=== PATIENT | female | born 1990 | race Two or more races ===

== ENCOUNTER 2020-05-02 12:45 | Outpatient (REF) | payer MEDICAID, SELFPAY | END 2020-05-02 12:46 | disposition home or self-care (01) | LOC: HO.LAB 12:45 | PROVIDERS: PCP Internal Medicine; Visit Provider Internal Medicine | DX: Z20.822 Contact with and (suspected) exposure to COVID-19 (principal) | CPT/HCPCS: 36415; C9803; U0003 ==

== ENCOUNTER 2020-07-25 08:09 | Outpatient (REF) | payer OTHER, SELFPAY ==
[2020-07-25 09:02] LABS: COVID-19 Test Negative (Negative); IDNOW Serial# 55D5AD1C
== END 2020-07-25 08:10 | disposition home or self-care (01) ==
LOC: HO.EMPCOV 08:09
PROVIDERS: Visit Provider Internal Medicine
DX: Z20.822 Contact with and (suspected) exposure to COVID-19 (principal)
CPT/HCPCS: 36415; 87635; C9803

== ENCOUNTER 2020-08-01 08:25 | Outpatient (REF) | payer OTHER, SELFPAY ==
[2020-08-01 09:17] LABS: COVID-19 Test Negative (Negative); IDNOW Serial# 55D5AD1C
== END 2020-08-01 08:26 | disposition home or self-care (01) ==
LOC: HO.EMPCOV 08:25
PROVIDERS: Visit Provider Internal Medicine
DX: Z20.822 Contact with and (suspected) exposure to COVID-19 (principal)
CPT/HCPCS: 36415; 87635; C9803

== ENCOUNTER 2021-06-28 08:54 | Outpatient (REF) | payer OTHER, SELFPAY ==
--- NOTE | ~2021-06-28 | FL_ITS ---
PROCEDURE: FL BARIUM SWALLOW CLINICAL INFORMATION: Dysphagia. COMPARISON: None TECHNIQUE: Barium swallow examination is performed using fluoroscopic evaluation in addition to multiple fluoroscopic spot views. The patient is imaged both upright and prone and using both thick and thin sulfate along with effervescent granules. Fluoroscopy time: 1.7 minutes DAP: 5.365 Gycm2 Images: 38 FINDINGS: Following oral administration of thick barium and barium-coated turkey in upright view there is normal propagation of bolus from the oral cavity through the pharynx, esophagus into stomach without any evidence of obstruction, narrowing or stricture. On placing patient prone lying and oral administration of thin barium there is normal propagation of bolus from the oral cavity through the pharynx into the esophagus and stomach. There is good distention of esophagus without any intrinsic obstructive lesion or extrinsic compression. The gastroesophageal junction is widely patent. FL/FL barium swallow IMPRESSION: Unremarkable barium swallow exam.
== END 2021-06-28 08:55 | disposition home or self-care (01) ==
LOC: HO.XRAY 08:54
PROVIDERS: PCP Nurse Practitioner Family; Visit Provider Nurse Practitioner Family
DX: R19.8 Other specified symptoms and signs involving the digestive system and abdomen (principal)
CPT/HCPCS: 74220

== ENCOUNTER 2021-07-04 04:57 | Emergency (ER) | payer OTHER, SELFPAY ==
[2021-07-04 05:21] VITALS: BP 111/81; PULSE 113; RESP 12; TEMP 36.6; O2SAT 96; BMI 26.3
[2021-07-04 05:55] VITALS: BP 118/70; PULSE 108; RESP 18; TEMP 37.2; O2SAT 96
[2021-07-04 06:14] LABS: Basophils Percent Auto 0.1 % (0-2); Eosinophils Percent Auto 0.6 % (0-4); Hematocrit 34.8 % (37.0-47.0); Hemoglobin 12.2 g/dl (12.0-16.0); Imm Gran Abs Auto 0.03 X10*3/uL (0.00-0.03); Imm Gran Pct Auto 0.4 % (0.0-0.4); Lymphocytes Absolute Auto 0.4 X10*3/uL (1.2-4.9); Lymphocytes Percent Auto 5.2 % (20-40); MANUAL DIFF FLAG NO; Mean Corpuscular HGB Conc 35.1 g/dl (31.0-35.0); Mean Corpuscular Hemoglobin 28.6 pg (27.0-33.0); Mean Corpuscular Volume 81.5 fL (80.0-98.0); Mean Platelet Volume 8.9 fL (9.4-12.3); Monocytes Absolute Auto 0.5 X10*3/uL (0.1-1.2); Monocytes Percent Auto 6.3 % (2-11); Neutrophils Absolute Auto 6.3 x10*3/uL (2.0-8.3); Neutrophils Percent Auto 87.4 % (45-73); Platelet Count 344 X10*3/uL (160-400); Red Blood Count 4.27 X10*6/uL (4.20-5.50); Red Cell Distribution Width 13.6 % (11.0-16.0); White Blood Count 7.2 X10*3/uL (4.8-10.8)
[2021-07-04 06:32] LABS: Alanine Aminotransferase 12 U/L (0-31); Albumin Level 4.2 g/dL (3.5-5.0); Alkaline Phosphatase 81 U/L (39-117); Anion Gap 10 (12-20); Aspartate Amino Transferase 14 U/L (5-31); Bilirubin Total 0.6 mg/dL (0.0-1.0); Blood Urea Nitrogen 8 mg/dL (9-16); Calcium 9.3 mg/dL (8.4-10.2); Carbon Dioxide 27 mmol/L (22-29); Chloride 104 mmol/L (96-108); Creatinine Clr Calc Pharmacy 77.9; Estimated Glomerular Filt Rate > 60; Glucose Random 110 mg/dL (60-115); Potassium 3.6 mmol/L (3.3-5.1); Sodium 137 mmol/L (135-145); Total Protein 7.4 g/dL (6.5-8.0)
--- NOTE | 2021-07-04 06:39 | ED.ABDPAIN ---
HPI - Abdominal Pain General Chief Complaint: Abdominal Pain Stated Complaint: stomach pain Time Seen by Provider: 07/04/21 05:31 Source: patient Mode of arrival: ambulatory Limitations: no limitations History of Present Illness HPI narrative: Since yesterday intermittent abdominal pain, no dysuria, LMP 3, denies Diarrhea Patient states she has chills, she had vomiting yesterday at work. elicited complaint: abdominal pain Pertinent past history: none Onset (ago): day(s) Pain Consistency: intermittent Location: periumbilical Severity: mild Quality: cramping Exacerbating factors: nothing Relieving factors: nothing Associated symptoms: denies other symptoms Related Data Home Medications Medication Instructions Recorded Confirmed trazodone 50 mg tablet 50 mg PO BEDTIME 05/09/21 Previous Rx's Medication Instructions Recorded hydroxyzine HCl 25 mg tablet 25 mg PO Q6-8H PRN #30 tab 05/09/21 Allergies Allergy/AdvReac Type Severity Reaction Status Date / Time No Known Allergies Allergy Verified 05/09/21 16:17 Review of Systems Constitutional: Reports no additional constitutional complaints Eyes: Reports no additional eye complaints Denies dizziness Cardiovascular: Reports no additional cardiovascular complaints Respiratory: Reports as per HPI Gastrointestinal: Reports no additional gastrointestinal complaints Genitourinary: Reports no additional female genitourinary complaints Musculoskeletal: Reports no additional musculoskeletal complaints Skin/Breast: Denies rash Reports system reviewed and no additional complaints, except as documented, Denies dizziness and Denies Sensory deficit (Neuro) Psychiatric: Denies anxiety PMFSH Past Medical History Surgical History History of tonsillectomy Family History Family History Father Hypothyroid Depression Mental health disorder Multiple sclerosis Mother Diabetes Hypothyroid Hypertension Maternal Aunt Cancer Social History Social History Housing: Apartment Alcohol intake: never Patient Tobacco Use Status: Never used Tobacco e-Cigarette/Vaping Use: Never Used Second Hand Smoke Exposure: No Advance Directives: No Advance Directives Information Provided: Yes Patient : No service: No Current occupational status: employed Current occupational exposures/hazards: No Physical Exam ED Vital Signs: Vital Signs - 24 hr 07/04/21 05:21 07/04/21 05:55 Temperature 97.9 F 98.9 F Pulse Rate 113 H 108 H Respiratory Rate 12 18 Blood Pressure 111/81 118/70 Pulse Oximetry 96 96 BMI result Body Mass Index 26.3 Const General: healthy appearing Nutritional Appearance: average body habitus Orientation/consciousness: oriented to person and patient oriented x3 Limitations: no limitations HENMT Head: Yes normal to inspection Ears: external ears normal General nose exam: Normal external nose present Mouth: Normal oral and palatal mucosa present and oropharynx normal Throat: Yes posterior oropharynx normal Eyes General: appearance normal, both eyes and all related structures Neck Neck: Yes normal visual inspection Chest Chest palpation & inspection: normal inspection of the chest Resp Auscultation: clear to auscultation bilaterally Cardio Jugular venous distension: no JVD Rate: regular rate Rhythm: regular rhythm Heart sounds: S1 normal heart sound present and S2 normal heart sound present GI Inspection: Yes normal to inspection Palpation (GI): Soft to palpation, nontender and No hepatosplenomegaly present Auscultation: normal bowel sounds General: Yes no CVA tenderness Back/Spine/Pelvis Back: no CVA tenderness Skin General skin exam: no rashes or lesions noted Neuro General: oriented to person and patient oriented x3 Cranial nerves: Yes CN's II-XII intact bilaterally Motor exam (neuro): 5/5 motor strength present throughout Sensory Exam: No Sensory deficit (Neuro) Extrem General: Yes normal to inspection Psych Appearance: grossly normal Course Reevaluation(s) Reevaluation #1: labs and urine negative, patient tolerated PO. Doesn't want zofran, will dc home Time: 08:30 MDM - Abdominal Pain Lab Data Result diagrams: 07/04/21 06:10 07/04/21 06:10 Labs: Lab Results 07/04/21 07/04/21 07/04/21 Range/Units 06:10 06:10 07:11 WBC 7.2 (4.8-10.8) X10*3/uL RBC 4.27 (4.20-5.50) X10*6/uL Hgb 12.2 (12.0-16.0) g/dl Hct 34.8 L (37.0-47.0) % MCV 81.5 (80.0-98.0) fL MCH 28.6 (27.0-33.0) pg MCHC 35.1 H (31.0-35.0) g/dl RDW 13.6 (11.0-16.0) % Plt Count 344 (160-400) X10*3/uL MPV 8.9 L (9.4-12.3) fL Immature Gran % (Auto) 0.4 (0.0-0.4) % Neut % (Auto) 87.4 H (45-73) % Lymph % (Auto) 5.2 L (20-40) % [place] % (Auto) 6.3 (2-11) % Eos % (Auto) 0.6 (0-4) % Baso % (Auto) 0.1 (0-2) % Lymph # (Auto) 0.4 L (1.2-4.9) X10*3/uL [place] # (Auto) 0.5 (0.1-1.2) X10*3/uL Eos # (Auto) 0.0 (0.0-0.4) X10*3/uL Baso # (Auto) 0.0 (0.0-0.2) X10*3/uL Abs Immat Gran (auto) 0.03 (0.00-0.03) X10*3/uL Absolute Neuts (auto) 6.3 (2.0-8.3) x10*3/uL Absolute Nucleated RBC 0.000 (0.0-0.012) X10*3/uL Nucleated RBC % (auto) 0.0 (0.0-0.2) /100WBC Sodium 137 (135-145) mmol/L Potassium 3.6 (3.3-5.1) mmol/L Chloride 104 (96-108) mmol/L Carbon Dioxide 27 (22-29) mmol/L Anion Gap 10 L (12-20) BUN 8 L (9-16) mg/dL Creatinine 0.79 (0.5-1.4) mg/dL Estim Creat Clear Calc 77.9 Estimated GFR > 60 Random Glucose 110 (60-115) mg/dL Calcium 9.3 (8.4-10.2) mg/dL Total Bilirubin 0.6 (0.0-1.0) mg/dL AST 14 (5-31) U/L ALT 12 (0-31) U/L Alkaline Phosphatase 81 (39-117) U/L Total Protein 7.4 (6.5-8.0) g/dL Albumin 4.2 (3.5-5.0) g/dL Urine Color YELLOW Urine Appearance HAZY Urine pH 6.0 (5.0-8.0) Ur Specific [place] 1.020 (1.005-1.025) Urine Protein TRACE (NEG-TRACE) MG/DL Urine Glucose (UA) NEG (NEG) MG/DL Urine Ketones 5 (NEG) MG/DL Urine Blood NEG (NEG) Urine Nitrite NEG (NEG) Ur Leukocyte Esterase 1+ H (NEG) Urine RBC 0 (0) /HPF Urine WBC 10-14 H (0-4) /HPF Ur Squamous Epith Cells 1+ /LPF Urine Bacteria 1+ /LPF Urine Mucus 2+ /LPF Urine Test (NEGATIVE) 07/04/21 Range/Units 07:11 WBC (4.8-10.8) X10*3/uL RBC (4.20-5.50) X10*6/uL Hgb (12.0-16.0) g/dl Hct (37.0-47.0) % MCV (80.0-98.0) fL MCH (27.0-33.0) pg MCHC (31.0-35.0) g/dl RDW (11.0-16.0) % Plt Count (160-400) X10*3/uL MPV (9.4-12.3) fL Immature Gran % (Auto) (0.0-0.4) % Neut % (Auto) (45-73) % Lymph % (Auto) (20-40) % [place] % (Auto) (2-11) % Eos % (Auto) (0-4) % Baso % (Auto) (0-2) % Lymph # (Auto) (1.2-4.9) X10*3/uL [place] # (Auto) (0.1-1.2) X10*3/uL Eos # (Auto) (0.0-0.4) X10*3/uL Baso # (Auto) (0.0-0.2) X10*3/uL Abs Immat Gran (auto) (0.00-0.03) X10*3/uL Absolute Neuts (auto) (2.0-8.3) x10*3/uL Absolute Nucleated RBC (0.0-0.012) X10*3/uL Nucleated RBC % (auto) (0.0-0.2) /100WBC Sodium (135-145) mmol/L Potassium (3.3-5.1) mmol/L Chloride (96-108) mmol/L Carbon Dioxide (22-29) mmol/L Anion Gap (12-20) BUN (9-16) mg/dL Creatinine (0.5-1.4) mg/dL Estim Creat Clear Calc Estimated GFR Random Glucose (60-115) mg/dL Calcium (8.4-10.2) mg/dL Total Bilirubin (0.0-1.0) mg/dL AST (5-31) U/L ALT (0-31) U/L Alkaline Phosphatase (39-117) U/L Total Protein (6.5-8.0) g/dL Albumin (3.5-5.0) g/dL Urine Color Urine Appearance Urine pH (5.0-8.0) Ur Specific [place] (1.005-1.025) Urine Protein (NEG-TRACE) MG/DL Urine Glucose (UA) (NEG) MG/DL Urine Ketones (NEG) MG/DL Urine Blood (NEG) Urine Nitrite (NEG) Ur Leukocyte Esterase (NEG) Urine RBC (0) /HPF Urine WBC (0-4) /HPF Ur Squamous Epith Cells /LPF Urine Bacteria /LPF Urine Mucus /LPF Urine Test NEGATIVE (NEGATIVE) Discharge Plan Discharge Clinical Impression: Abdominal pain, Vomiting Patient Disposition: Home, Self-Care Instructions: Abdominal Pain (ED), Acute Nausea and Vomiting (ED) Additional Instructions: You may return to the emergency department with any new or worsening symptoms or concerns. Prescriptions: No Action trazodone 50 mg tablet 50 mg PO BEDTIME 0RF hydroxyzine HCl 25 mg tablet 25 mg PO Q6-8H PRN (Reason: itching) Qty: 30 0RF Referrals: Physician,Unknown J [Primary Care Provider] - 3 days
--- NOTE | 2021-07-04 07:07 | PC.NURSE ---
pt c/o periumbilical ABD pain x 1 day, reported nausea and vomiting. intermittent 9/10 sharp, cramping pain. last BM yesterday, softer than usual. denies urinary sx.
[2021-07-04] MEDS: Ondansetron ODT 4 MG TAB.RAPDIS TRANSLINGU (07:09)
[2021-07-04 07:19] LABS: Appearance Urine HAZY; Color Urine YELLOW; Glucose Urine UA NEG (NEG); Leukocyte Esterase Urine 1+ (NEG); Nitrite Urine NEG (NEG); UACC Culture Trigger YES; Urine Blood NEG (NEG); Urine Ketones 5 MG/DL (NEG); Urine Protein TRACE MG/DL (NEG-TRACE)
[2021-07-04 07:24] LABS: UPreg QC Valid YES; Urine Pregnancy NEGATIVE (NEGATIVE)
[2021-07-04 07:27] LABS: Bacteria Urine 1+ /LPF; Mucus Urine 2+ /LPF; RBC Urine 0 /HPF (0); Squamous Epithelial Cell Urine 1+ /LPF
--- NOTE | 2021-07-04 07:59 | PC.NURSE ---
nad, skin wpd, nausea improved, drinking isabela abdirashid,
== END 2021-07-04 08:44 | disposition home or self-care (01) ==
PROVIDERS: Student in an Organized Health Care Education/Training Program; Emergency Provider Emergency Medicine
DX: R10.9 Unspecified abdominal pain (principal); R11.10 Vomiting, unspecified; Z79.899 Other long term (current) drug therapy
CPT/HCPCS: 36415; 80053; 81001; 81025; 85025; 87086; 99283; 99284

== ENCOUNTER 2021-07-11 08:15 | Outpatient (REF) | payer OTHER, SELFPAY ==
[2021-07-11 14:09] LABS: CT PCR DETECTED (Not Detect.); NG PCR NOT DETECTED (Not Detect.)
[2021-07-16 21:02] LABS: HPV mRNA E6/E7 rflx Not Detected (Not Detected)
== END 2021-07-11 08:16 | disposition home or self-care (01) ==
LOC: HO.LAB 08:15
PROVIDERS: Visit Provider Advanced Practice Midwife
DX: Z01.419 Encounter for gynecological examination (general) (routine) without abnormal findings (principal); Z11.51 Encounter for screening for human papillomavirus (HPV); Z20.2 Contact with and (suspected) exposure to infections with a predominantly sexual mode of transmission
CPT/HCPCS: 87491; 87591; 87624; 88142

== ENCOUNTER 2021-08-18 10:17 | Outpatient (REF) | payer OTHER, SELFPAY ==
[2021-08-18 10:27] LABS: MANUAL DIFF FLAG NO
[2021-08-18 10:43] LABS: Basophils Percent Auto 0.5 % (0-2); Eosinophils Absolute Auto 0.1 X10*3/uL (0.0-0.4); Eosinophils Percent Auto 1.6 % (0-4); Hematocrit 34.6 % (37.0-47.0); Hemoglobin 11.8 g/dl (12.0-16.0); Imm Gran Abs Auto 0.02 X10*3/uL (0.00-0.03); Imm Gran Pct Auto 0.3 % (0.0-0.4); Lymphocytes Absolute Auto 1.8 X10*3/uL (1.2-4.9); Lymphocytes Percent Auto 23.6 % (20-40); Mean Corpuscular HGB Conc 34.1 g/dl (31.0-35.0); Mean Corpuscular Hemoglobin 27.8 pg (27.0-33.0); Mean Corpuscular Volume 81.6 fL (80.0-98.0); Mean Platelet Volume 9.4 fL (9.4-12.3); Monocytes Absolute Auto 0.6 X10*3/uL (0.1-1.2); Monocytes Percent Auto 7.8 % (2-11); Neutrophils Percent Auto 66.2 % (45-73); Platelet Count 384 X10*3/uL (160-400); Red Blood Count 4.24 X10*6/uL (4.20-5.50); Red Cell Distribution Width 14.1 % (11.0-16.0); White Blood Count 7.5 X10*3/uL (4.8-10.8)
[2021-08-18 11:20] LABS: Alanine Aminotransferase 26 U/L (0-31); Albumin Level 4.4 g/dL (3.5-5.0); Alkaline Phosphatase 86 U/L (39-117); Anion Gap 11 (12-20); Aspartate Amino Transferase 50 U/L (5-31); Bilirubin Total 0.4 mg/dL (0.0-1.0); Blood Urea Nitrogen 8 mg/dL (9-16); Calcium 9.5 mg/dL (8.4-10.2); Carbon Dioxide 25 mmol/L (22-29); Chloride 106 mmol/L (96-108); Cholesterol 142 mg/dL; Estimated Glomerular Filt Rate > 60; Glucose Fasting 96 mg/dL (60-99); HDL Cholesterol 39 mg/dL; LDL Cholesterol Calculated 92 mg/dl; Sodium 138 mmol/L (135-145); Total Protein 7.9 g/dL (6.5-8.0); Triglycerides 59 mg/dL
[2021-08-18 11:34] LABS: TSH reflex Free T4 2.81 uIU/mL (0.32-4.0)
[2021-08-20 03:46] LABS: HBc Num1 0.09 S/CO (0.00-0.79); HIV AB/AG Nonreactive (Nonreactive); HIV Num 1 0.07 S/CO (0.00-0.99); Hepatitis B Core Antibody Nonreactive (Nonreactive); ~HepC Num1 0.11 S/CO (0.00-0.79); ~Hepatitis C Antibody Nonreactive (Nonreactive)
[2021-08-20 06:02] LABS: Syphilis Screen Nonreactive (Nonreactive)
== END 2021-08-18 10:18 | disposition home or self-care (01) ==
LOC: HO.LAB 10:17
PROVIDERS: Absent Provider Advanced Practice Midwife; PCP Nurse Practitioner Family; Visit Provider Nurse Practitioner Family
DX: Z11.4 Encounter for screening for human immunodeficiency virus [HIV] (principal); Z20.2 Contact with and (suspected) exposure to infections with a predominantly sexual mode of transmission; I10 Essential (primary) hypertension; E78.00 Pure hypercholesterolemia, unspecified; Z76.89 Persons encountering health services in other specified circumstances
CPT/HCPCS: 36415; 80053; 80061; 84443; 85025; 86704; 86780; 86803; 87389

== ENCOUNTER 2021-10-12 10:26 | Outpatient (REF) | payer OTHER, SELFPAY ==
[2021-10-12 17:17] LABS: CT PCR NOT DETECTED (Not Detect.); NG PCR NOT DETECTED (Not Detect.)
[2021-10-13 15:00] LABS: BV Int Neg Control Negative (Negative); BV Int Pos Control Positive (Positive)
== END 2021-10-12 10:27 | disposition home or self-care (01) ==
LOC: HO.LAB 10:26
PROVIDERS: Visit Provider Advanced Practice Midwife
DX: Z11.3 Encounter for screening for infections with a predominantly sexual mode of transmission (principal)
CPT/HCPCS: 87480; 87491; 87510; 87591; 87660

== ENCOUNTER 2022-02-08 09:59 | Outpatient (REF) | payer OTHER, SELFPAY ==
[2022-02-08 10:19] LABS: MANUAL DIFF FLAG NO
[2022-02-08 10:33] LABS: Basophils Percent Auto 0.3 % (0-2); Eosinophils Absolute Auto 0.1 X10*3/uL (0.0-0.4); Eosinophils Percent Auto 1.3 % (0-4); Hemoglobin 12.5 g/dl (12.0-16.0); Imm Gran Abs Auto 0.02 X10*3/uL (0.00-0.03); Imm Gran Pct Auto 0.3 % (0.0-0.4); Immature Retic Fraction 12.8 % (3.0-15.9); Lymphocytes Absolute Auto 1.2 X10*3/uL (1.2-4.9); Lymphocytes Percent Auto 20.6 % (20-40); Mean Corpuscular HGB Conc 33.8 g/dl (31.0-35.0); Mean Corpuscular Hemoglobin 28.1 pg (27.0-33.0); Mean Corpuscular Volume 83.1 fL (80.0-98.0); Mean Platelet Volume 9.4 fL (9.4-12.3); Monocytes Absolute Auto 0.4 X10*3/uL (0.1-1.2); Monocytes Percent Auto 6.5 % (2-11); Neutrophils Absolute Auto 4.2 x10*3/uL (2.0-8.3); Platelet Count 403 X10*3/uL (160-400); Red Blood Count 4.45 X10*6/uL (4.20-5.50); Red Cell Distribution Width 13.2 % (11.0-16.0); Retic HGB Equivalent 34.2 pg (30.0-35.0); Reticulocyte Percent 1.5 % (0.5-1.8); Reticulocytes Absolute 0.067 X10*6/uL (0.026-0.095)
[2022-02-08 11:00] LABS: Alanine Aminotransferase 14 U/L (0-31); Albumin Level 4.7 g/dL (3.5-5.0); Alkaline Phosphatase 107 U/L (39-117); Anion Gap 14 (12-20); Aspartate Amino Transferase 20 U/L (5-31); Bilirubin Total 0.2 mg/dL (0.0-1.0); Blood Urea Nitrogen 10 mg/dL (9-16); Calcium 9.8 mg/dL (8.4-10.2); Carbon Dioxide 25 mmol/L (22-29); Chloride 104 mmol/L (96-108); Estimated Glomerular Filt Rate > 60; Glucose Random 98 mg/dL (60-115); Iron 75 mcg/dL (30-160); Percent Iron Saturation 17 % (15-50); Potassium 4.3 mmol/L (3.3-5.1); Sodium 139 mmol/L (135-145); Total Iron Binding Capacity 453 mcg/dL (228-428); Total Protein 8.2 g/dL (6.5-8.0); Unsaturated Iron Binding 378 ug/dL
[2022-02-08 11:12] LABS: Syphilis Screen Nonreactive (Nonreactive)
[2022-02-08 11:21] LABS: Ferritin 15 ng/mL (10-122)
[2022-02-08 11:28] LABS: Folate 10.8 ng/mL (> or = 4.0); Vitamin B12 526 pg/mL (200-900)
[2022-02-08 11:46] LABS: HBsAGNum1 0.24 S/CO (0.00-0.99); HIV AB/AG Nonreactive (Nonreactive); HIV Num 1 0.06 S/CO (0.00-0.99); Hepatitis B Surface Antigen Negative (Negative); ~HepC Num1 0.17 S/CO (0.00-0.79); ~Hepatitis C Antibody Nonreactive (Nonreactive)
== END 2022-02-08 10:00 | disposition home or self-care (01) ==
LOC: HO.LAB 09:59
PROVIDERS: Absent Provider Advanced Practice Midwife; PCP Internal Medicine; Visit Provider Internal Medicine
DX: Z11.4 Encounter for screening for human immunodeficiency virus [HIV] (principal); D64.9 Anemia, unspecified; R79.89 Other specified abnormal findings of blood chemistry; Z20.2 Contact with and (suspected) exposure to infections with a predominantly sexual mode of transmission
CPT/HCPCS: 36415; 80053; 82607; 82728; 82746; 83540; 85025; 85045; 86780; 86803; 87340; 87389

== ENCOUNTER 2022-02-12 09:20 | Outpatient (REF) | payer OTHER, SELFPAY ==
[2022-02-12 18:29] LABS: CT PCR NOT DETECTED (Not Detect.); NG PCR NOT DETECTED (Not Detect.)
[2022-02-13 13:08] LABS: BV Int Neg Control Negative (Negative); BV Int Pos Control Positive (Positive)
== END 2022-02-12 09:21 | disposition home or self-care (01) ==
LOC: HO.LNP 09:20
PROVIDERS: Visit Provider Advanced Practice Midwife
DX: Z11.3 Encounter for screening for infections with a predominantly sexual mode of transmission (principal); Z20.2 Contact with and (suspected) exposure to infections with a predominantly sexual mode of transmission
CPT/HCPCS: 87480; 87491; 87510; 87591; 87660

== ENCOUNTER 2022-07-15 08:01 | Outpatient (REF) | payer OTHER, SELFPAY ==
[2022-07-15 14:33] LABS: CT PCR NOT DETECTED (Not Detect.); NG PCR NOT DETECTED (Not Detect.)
[2022-07-16 09:26] LABS: BV Int Neg Control Negative (Negative); BV Int Pos Control Positive (Positive)
== END 2022-07-15 08:02 | disposition home or self-care (01) ==
LOC: HO.LAB 08:01
PROVIDERS: Visit Provider Advanced Practice Midwife
DX: N89.8 Other specified noninflammatory disorders of vagina (principal); R10.2 Pelvic and perineal pain; Z20.2 Contact with and (suspected) exposure to infections with a predominantly sexual mode of transmission
CPT/HCPCS: 0353U; 81025; 87480; 87510; 87660

== ENCOUNTER 2022-07-15 08:48 | Outpatient (REF) | payer OTHER, SELFPAY | END 2022-07-15 08:49 | disposition home or self-care (01) | LOC: HO.LNP 08:48 | PROVIDERS: Visit Provider Advanced Practice Midwife | DX: Z13.89 Encounter for screening for other disorder (principal) ==

== ENCOUNTER 2023-01-08 09:13 | Outpatient (REF) | payer OTHER, SELFPAY | END 2023-01-08 09:14 | disposition home or self-care (01) | LOC: HO.LAB 09:13 | PROVIDERS: Visit Provider Advanced Practice Midwife | DX: Z13.89 Encounter for screening for other disorder (principal) ==

== ENCOUNTER 2023-01-08 09:13 | Outpatient (AMB) | payer OTHER, SELFPAY ==
[2023-01-08 09:17] VITALS: BP 126/80; BMI 28.2
--- NOTE | 2023-01-08 09:17 | A.OFFVIS_ITS ---
Intake Vital Signs 01/08/23 09:17 Height 4 ft 10 in Weight 135 lb BMI 28.2 BP 126/80 Intake Visit Reasons: Vaginal Discharge Intake Note: The patient agreed to use of a medical superintendent during this encounter. Scribed for JOSE Vivas by Joy Dickson medical superintendent, on 01/08/2023 at 9:30 am EST. Hiv Prevention Specialist: Hiv Prevention Specialist Present (Jennifer) Allergies No Known Allergies Allergy (Verified 01/08/23 09:17) Is last menstrual period known: Yes Last menstrual period: 01/02/23 HPI HPI Comments History of Present Illness Details She is here today with complaints of vaginal discharge. Hx of BV. Currently sexually active and uses condoms; unsure if partner is faithful. Denies vaginal odor and pelvic pain. Reports menses every 31 days. [facility] Medical History Anxiety Cervical cancer screening Difficulty sleeping Encounter to establish care Globus sensation Impacted cerumen of both ears Miscarriage Potential exposure to STD Weight gain Surgical History History of tonsillectomy Family History Father Hypothyroid Depression Mental health disorder Multiple sclerosis Mother Diabetes Hypothyroid Hypertension Maternal Aunt No problems noted. 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[employer] [place] Current occupational exposures/hazards: No Sexual orientation: Straight/Heterosexual Gender identity: Female Cognitive needs: No Hearing needs: No Vision needs: Yes Female Reproductive History Menstrual Age of Menarche: 12 Date of last menstrual period: 01/02/23 Physical Exam Vital Signs: Last Vital Signs BP 126/80 01/08/23 09:17 BMI result Body Mass Index 28.2 Const General: cooperative, healthy appearing, comfortable, no acute distress, well developed, alert and awake Other: General: Yes bladder normal to palpation External Female Exam: normal external appearance and normal appearance of the urethra Speculum Exam - Vagina: normal appearance of the vagina, normal palpation and abnormal vaginal discharge (clear mucus at cervix) Speculum Exam - Cervix: normal appearance of the cervix and normal palpation Bimanual exam- vagina & uterus: normal bimanual exam, normal palpation, bladder normal to palpation and normal palpation Bimanual Exam- Adnexa, other: normal adnexae and no masses Assessment & Plan Assessment & Plan (1) Vaginal discharge: Code(s): N89.8 - Other specified noninflammatory disorders of vagina Plan: Discussed: BV testing and GC/CT panel done today. Await results and treat accordingly. Encouraged to use condoms for STD prevention. All of her questions and concerns were addressed to the best of my ability and shared decision making. She is agreeable to plan of care. Coding Level of Care Code Est Pt Level 3 (42567) Diagnoses Vaginal discharge N89.8
== END 2023-01-08 09:40 | disposition home or self-care (01) ==
PROVIDERS: Visit Provider Advanced Practice Midwife
DX: N89.8 Other specified noninflammatory disorders of vagina (principal)
CPT/HCPCS: 99213

== ENCOUNTER 2023-01-08 09:58 | Outpatient (REF) | payer OTHER, SELFPAY ==
[2023-01-08 18:27] LABS: CT PCR NOT DETECTED (Not Detect.); NG PCR NOT DETECTED (Not Detect.)
[2023-01-09 13:00] LABS: BV Int Neg Control Negative (Negative); BV Int Pos Control Positive (Positive)
== END 2023-01-08 09:59 | disposition home or self-care (01) ==
LOC: HO.LNP 09:58
PROVIDERS: Visit Provider Advanced Practice Midwife
DX: N89.8 Other specified noninflammatory disorders of vagina (principal)
CPT/HCPCS: 0353U; 87480; 87510; 87660

== ENCOUNTER 2023-01-16 13:14 | Outpatient (AMB) | payer OTHER, SELFPAY ==
[2023-01-16 13:25] VITALS: BP 122/68; PULSE 74; O2SAT 99; BMI 27.8
--- NOTE | 2023-01-16 13:25 | MHC.PC.OV ---
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: No Allergies No Known Allergies Allergy (Verified 01/16/23 13:50) Medication List - Last Reconciled 01/16/23 by MILTON Baltazar melatonin 10 mg PO BEDTIME 30 days sertraline 25 mg PO DAILY 90 days Tobacco use date assessed: 01/16/23 Dental Screening Dental Screen Date: 01/16/23 Did you have a dental visit in the last 12 months?: Yes Did you have a dental problem in the last 6 months where you did not have access to dental care?: No Was dental information given to patient?: Patient has dentist HPI health concern HPI Details Patient is a 32-year-old female who presents today for an office visit due to bright red blood per rectum for the past [address] Farfan. Medical history significant for LFT elevation, anxiety, insomnia. Patient reports chronic constipation for long time now, she does not take anything for constipation. Reports bright red blood per rectum after having bowel movement, reports blood on toilet paper, in the toilet, and in stool. Reports she did see blood clot 1 month ago. Reports constipation yesterday and today, reports hard bowel movements for the past 2 days, although this is long-term problem for her. Denies hemorrhoids, denies rectal pain. No diarrhea, no nausea or vomiting. Reports abdominal bloating. No fever or chills. Reports mild abdominal cramping since yesterday, last menstruation 1 week ago. Reports taking multivitamins at home - will check if there is any iron or B vitamins - and then will stop them. [facility] Medical History Miscarriage Potential exposure to STD Impacted cerumen of both ears Difficulty sleeping Anxiety Weight gain Cervical cancer screening Globus sensation Encounter to establish care Surgical History History of tonsillectomy Family History Father Hypothyroid Depression Mental health disorder Multiple sclerosis Mother Diabetes Hypothyroid Hypertension Maternal Aunt No problems noted. 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 1. Little interest or pleasure in doing things: not at all 2. Feeling down, depressed, or hopeless: not at all 3. Trouble falling or staying asleep, or sleeping too much: not at all 4. Feeling tired or having little energy: not at all 5. Poor appetite or overeating: not at all 6. Feeling bad about yourself - or that you are a failure or have let yourself or your family down: not at all 7. Trouble concentrating on things, such as reading the newspaper or watching television: not at all 8. Moving or speaking so slowly that other people could have noticed. Or the opposite - being so fidgety or restless that you have been moving around a lot more than usual: not at all 9. Thoughts that you would be better off or of hurting yourself in some way: not at all Total score: 0 Depression Screening Interpretation: Negative Depression Screening Done: Yes [id number] - PHQ-9 Billing: Yes Source: Developed by Drs. Lorenzo Perez, Isabel De La Cruz, Kye Pratt and colleagues, with an educational karen from [employer]. Thrive Questionnaire Date Thrive assessed: 08/27/21 AUDIT C Alcohol Use Questionnaire (AUDIT-C) 1. How often do you have a drink containing alcohol?: 2-4 times a month 2. How many drinks containing alcohol do you have on a typical day when you are drinking?: 3 or 4 3. How often do you have six or more drinks on one occasion?: Never Total Score: 3 Score Reviewed/Action Taken: Yes TALHA-7 AMB Questionnaire TALHA-7 Date TALHA - 7 assessed: 01/16/23 Feeling nervous, anxious, or on edge: 0 = Not at all Not being able to stop or control worryin = Not at all Worrying too much about different things: 0 = Not at all Trouble relaxin = Not at all Being so restless that it is hard to sit still: 0 = Not at all Becoming easily annoyed or irritable: 0 = Not at all Feeling afraid as if something awful might happen: 0 = Not at all Total TALHA-7 score (0-4 normal; 5-9 mild; 10-14 moderate; 15-21 severe): 0 Source: Developed by Drs. Lorenzo Perez, Isabel De La Cruz, Kye Pratt and colleagues, with an educational karen from [employer]. TALHA-7 Assessment Billing TALHA-7 Assessment Tool: TALHA-7 Assessment 37923 Review of Systems Const Denies body aches, Denies chills, Denies fever(s) and Denies headache(s) ENT Denies dizziness, Denies otalgia, Denies headache(s), Denies nasal discharge, Denies sinus pain and Denies sore throat Card Denies chest pain, Denies edema, Denies lightheadedness and Denies dyspnea Resp Denies dyspnea and Denies wheezing GI Denies abdominal pain, Reports bloating, Reports hematochezia, Reports constipation, Denies diarrhea, Denies nausea, Denies vomiting and Denies hematemesis Denies dysuria Musc Denies myalgias Skin/Breast Denies rash Neuro Denies dizziness and Denies headache(s) Aller/Immun Denies wheezing Physical exam (Primary Care) Vital Signs: Last Vital Signs Pulse 74 01/16/23 13:25 BP 122/68 01/16/23 13:25 Pulse Ox 99 01/16/23 13:25 Oxygen Delivery Method Room Air 01/16/23 13:25 BMI result Body Mass Index 27.8 Tobacco/Smoking Status: Tobacco use Status Tobacco use date assessed 01/16/23 01/16/23 13:27 Patient Tobacco Use Status Never used Tobacco 01/16/23 13:27 e-Cigarette/Vaping Use Never Used 01/16/23 13:27 PHQ-9: PHQ-9 Score PHQ-9: Total score 0 01/16/23 13:49 Depression Screening Interpretation: Negative Thrive Assessment: Date of Thrive Assessment Date Thrive assessed 08/27/21 01/16/23 13:27 Const General: cooperative and no acute distress Orientation/consciousness: patient oriented x3 HENMT Head: Yes normocephalic and Yes atraumatic Face and sinus: Yes sinuses nontender Mouth: oropharynx normal and moist mucous membranes Throat: Yes posterior oropharynx normal Eyes General: appearance normal, both eyes and all related structures Neck Neck: Yes normal visual inspection, Yes full ROM and Yes no lymphadenopathy Resp Effort & Inspection: normal respiratory effort and able to speak in complete sentences Auscultation: clear to auscultation bilaterally, no crackles, no rales, no rhonchi and no wheezes Cardio Rate: regular rate Rhythm: regular rhythm Heart sounds: S1 normal heart sound present, S2 normal heart sound present and no murmurs GI Other: Patient declined rectal exam Palpation (GI): Soft to palpation, not firm, nontender, no guarding, not rigid and no hepatosplenomegaly Auscultation: normal bowel sounds Skin General skin exam: no rashes or lesions noted Neuro General: patient oriented x3 Gait exam (Neuro): Normal gait present Extrem General: Yes full ROM and No edema Office Procedures Flu Questionnaire Does the patient have a severe egg allergy?: No Does the patient have severe life threatening allergies?: No Does the patient have a fever or illness today?: No Has the patient ever had Guillain-Rockham Syndrome?: No Has the patient ever had any past reaction to a flu shot?: No Immunizations flu vacc [id number] 6mos up(PF) 60 mcg(15 mcgx4)/0.5 mL IM syringe Performing Provider: MILTON Baltazar Performing Location: [facility] Administered by: KATERINE Hernández on 01/16/23 13:47 Dose Route Admin Location Dispensed Lot Number Expiration Date [place] [employer]ologist 0.5 mL IM Left Deltoid 0.5 mL [id number] 10/12/23 95882-582-36 [employer] VIS Given Date VIS Provided VIS Publication Date 01/16/23 Single Vaccine 20 Eligibility Eligibility Date Funding Source Not [facility] Eligible 01/16/23 Private Assessment and Plan Assessment & Plan (1) BRBPR (bright red blood per rectum): Code(s): K62.5 - Hemorrhage of anus and rectum Plan: Urgent referral to GI Blood work ordered Signs symptoms reviewed when to notify provider or go to the emergency department (2) Abdominal bloating: Code(s): R14.0 - Abdominal distension (gaseous) Plan: Start simethicone prn (3) Constipation: Code(s): K59.00 - Constipation, unspecified Plan: Increase dietary fiber and fluid consumption Start Colace 100 mg daily Patient agreed with the plan Orders: Orders Influenza [id number] Immunization Today Z23 - Encounter for immunization Complete Blood Count no Diff Today K59.00 - Constipation, unspecified Comprehensive Met. Panel Today K59.00 - Constipation, unspecified Referrals Gastroenterology Referral K59.00 - Constipation, unspecified, K62.5 - Hemorrhage of anus and rectum, R14.0 - Abdominal distension (gaseous) Medications: New docusate sodium (Colace) 100 mg PO DAILY 30 caps 0RF K59.00 - Constipation, unspecified simethicone (Gas Relief (simethicone)) 80 mg PO TID-QID PRN 30 tabs 0RF abdominal distention R14.0 - Abdominal distension (gaseous) Coding Level of Care Code Est Pt Level 3 (50319) Diagnoses BRBPR (bright red blood per rectum) K62.5 Abdominal bloating R14.0 Constipation K59.00 Additional Codes TALHA-7 Assessment Billing - TALHA-7 Assessment Tool: TALHA-7 Assessment 89111 ([id number])
== END 2023-01-16 14:08 | disposition home or self-care (01) ==
PROVIDERS: PCP Internal Medicine; Visit Provider Nurse Practitioner Family
DX: K62.5 Hemorrhage of anus and rectum (principal); R14.0 Abdominal distension (gaseous); K59.00 Constipation, unspecified; Z23 Encounter for immunization
CPT/HCPCS: 90471; 90686; 99213

== ENCOUNTER 2023-03-04 09:33 | Outpatient (REF) | payer OTHER, SELFPAY ==
[2023-03-04 10:44] LABS: Influenza A PCR NEGATIVE (Negative); Influenza B PCR NEGATIVE (Negative); Resp Syncy Virus RNA Qual PCR NEGATIVE (Negative); SARS COV2 PCR INHOUSE NEGATIVE (Negative)
[2023-03-04 10:47] LABS: COVID-19 Test Negative (Negative); IDNOW Serial# BCCEAD1C
== END 2023-03-04 09:34 | disposition home or self-care (01) ==
LOC: HO.LAB 09:33
PROVIDERS: PCP Internal Medicine; Visit Provider Physician Assistant Medical
DX: Z11.52 Encounter for screening for COVID-19 (principal); Z20.822 Contact with and (suspected) exposure to COVID-19; R09.89 Other specified symptoms and signs involving the circulatory and respiratory systems
CPT/HCPCS: 0241U; 87635

== ENCOUNTER 2023-03-10 14:55 | Outpatient (AMB) | payer OTHER, SELFPAY ==
--- NOTE | 2023-03-10 14:59 | MHC.OFFVIS ---
Intake Vital Signs 03/10/23 15:00 Height 4 ft 10 in Weight 138 lb 7.205 oz BMI 28.9 BP 121/70 Blood Pressure Location Rt brachial Position Sitting Pulse 81 Intake Visit Reasons: Hemorrhoids Intake Note: Patient presents to in office visit today as a new patient for constipation. CC: Patient c/o constipation and occasional blood in stools. She reports she has had constipation since she was a child but it has been worst for the last 6 months. She also reports occasional diarrhea, acid reflux, and heartburn. 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 Patient reports to be constipated for the past year or so. Patient reports to have blood when wiping after bowel movement. Patient does admit to pushing when she is constipated. Patient denies any family history of colon cancer. Denied actual melena or hematochezia, unintentional weight loss or ribbon like stools. Patient had used vvqs-iwq-ubgrcvo laxatives in the past. Patient denies any other GI concerning symptoms. [facility] Medical History Miscarriage Potential exposure to STD Impacted cerumen of both ears Difficulty sleeping Anxiety Weight gain Cervical cancer screening Globus sensation Encounter to establish care Surgical History History of tonsillectomy Family History Father Hypothyroid Depression Mental health disorder Multiple sclerosis Mother Diabetes Hypothyroid Hypertension Maternal Aunt No problems noted. 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 Current occupational exposures/hazards: No Sexual orientation: Straight/Heterosexual Gender identity: Female Cognitive needs: No Hearing needs: No Vision needs: Yes Female Reproductive History Menstrual Age of Menarche: 12 Review of Systems Const Denies weight gain and Denies weight loss ENT Reports no additional complaints, Denies dysphagia and Denies odynophagia Card Reports no additional complaints Resp Reports no additional complaints GI Denies abdominal pain, Denies belching, Denies melena, Denies bloating, Reports hematochezia (once), Denies change in bowel habits, Reports constipation, Denies dysphagia, Denies excessive flatus, Denies dyspepsia, Denies heartburn, Denies diarrhea, Denies loose stools, Denies nausea, Denies odynophagia and Denies vomiting Reports no additional complaints Musc Reports no additional complaints Neuro Reports no additional complaints Psych Reports no additional complaints Endo Reports no additional complaints Physical Exam Vital Signs: Last Vital Signs Pulse 81 03/10/23 15:00 BP 121/70 03/10/23 15:00 BMI result Body Mass Index 28.9 Const General: healthy appearing, no acute distress and well developed Nutritional Appearance: well nourished Orientation/consciousness: patient oriented x3 HEENT Head: Yes normal to inspection, Yes normocephalic and Yes atraumatic Face and sinus: Yes normal facial exam Mouth: Normal oral and palatal mucosa present Throat: Yes posterior oropharynx normal, Yes tonsils normal and Yes uvula midline Eyes General: appearance normal, both eyes and all related structures Neck Neck: Yes normal visual inspection, Yes full ROM and Yes trachea midline Thyroid: Thyroid normal Resp Effort & Inspection: normal respiratory effort, able to speak in complete sentences, no tracheal deviation and symmetric chest movement Auscultation: clear to auscultation bilaterally Cardio Rate: regular rate GI Inspection: Yes normal to inspection and No distended Palpation (GI): Soft to palpation, not firm, nontender and No hepatosplenomegaly present Auscultation: normal bowel sounds General: Yes no CVA tenderness Back/Spine/Pelvis Back: no CVA tenderness Skin General skin exam: elasticity normal, turgor normal and dry skin Neuro General: patient oriented x3 Psych Appearance: grossly normal Mental Status: mental status grossly normal Assessment & Plan Assessment & Plan (1) Abdominal bloating: Code(s): R14.0 - Abdominal distension (gaseous) (2) Constipation: Code(s): K59.00 - Constipation, unspecified Qualifiers: Constipation type: slow transit constipation Qualified Code(s): K59.01 - Slow transit constipation (3) BRBPR (bright red blood per rectum): Code(s): K62.5 - Hemorrhage of anus and rectum Plan Patient was encouraged to increase fluid intake and activity to promote better bowel motility. Patient will start taking MiraLax in the morning and Colace in the evening. Proctosol ordered. Will rule out anemia, most likely hemorrhoids. Patient does admit to straining when going to the bathroom. If patient's symptoms continue she will return to the office. Patient also reports abdominal bloating postprandially depending on what she eats. Low FODMAP diet discussed with patient. List of food recommended as well as list of food to avoid given to patient. Patient is agreeable to this plan and verbalizes understanding of instructions. She was given the opportunity to ask questions and all questions answered. Thank you for allowing me to participate in her care Orders: Orders Comprehensive Met. Panel Today K21.9 - Gastro-esophageal reflux disease without esophagitis TSH reflex Free T4 Today K59.00 - Constipation, unspecified Complete Blood Count no Diff Today K21.9 - Gastro-esophageal reflux disease without esophagitis Medications: New hydrocortisone 2.5% (Proctosol HC) 1 appl NH BID-QID PRN 30 grams 2RF hemorrhoids K64.9 - Unspecified hemorrhoids docusate sodium 100 mg PO BEDTIME 90 caps 3RF K59.00 - Constipation, unspecified polyethylene glycol 3350 (Miralax) 17 grams PO DAILY 510 grams 2RF Coding Level of Care Code New Pt Level 3 (67250) Diagnoses Abdominal bloating R14.0 Slow transit constipation K59.01 Constipation type: slow transit constipation BRBPR (bright red blood per rectum) K62.5 Time Spent (min) 40 Comment 30 minutes spent with patient and additional 10 minutes spent reviewing her records
[2023-03-10 15:00] VITALS: BP 121/70; PULSE 81; BMI 28.9
== END 2023-03-10 15:47 | disposition home or self-care (01) ==
PROVIDERS: PCP Internal Medicine; Visit Provider Nurse Practitioner Family
DX: R14.0 Abdominal distension (gaseous) (principal); K59.01 Slow transit constipation; K62.5 Hemorrhage of anus and rectum
CPT/HCPCS: 99203

== ENCOUNTER 2023-03-10 14:55 | Outpatient (REF) | payer OTHER, SELFPAY ==
[2023-03-10 16:28] LABS: Hematocrit 34.6 % (37.0-47.0); Hemoglobin 11.7 g/dl (12.0-16.0); Mean Corpuscular HGB Conc 33.8 g/dl (31.0-35.0); Mean Corpuscular Hemoglobin 28.3 pg (27.0-33.0); Mean Corpuscular Volume 83.6 fL (80.0-98.0); Mean Platelet Volume 9.5 fL (9.4-12.3); Platelet Count 343 X10*3/uL (160-400); Red Blood Count 4.14 X10*6/uL (4.20-5.50); Red Cell Distribution Width 13.8 % (11.0-16.0)
[2023-03-10 17:28] LABS: Alanine Aminotransferase 29 U/L (0-31); Albumin Level 4.4 g/dL (3.5-5.0); Alkaline Phosphatase 85 U/L (39-117); Anion Gap 11 (12-20); Aspartate Amino Transferase 29 U/L (5-31); Bilirubin Total 0.3 mg/dL (0.0-1.0); Blood Urea Nitrogen 11 mg/dL (9-16); Calcium 9.2 mg/dL (8.4-10.2); Carbon Dioxide 28 mmol/L (22-29); Chloride 104 mmol/L (96-108); Estimated Glomerular Filt Rate > 60; Glucose Random 97 mg/dL (60-115); Potassium 3.5 mmol/L (3.3-5.1); Sodium 139 mmol/L (135-145)
[2023-03-10 17:45] LABS: TSH reflex Free T4 3.71 uIU/mL (0.32-4.0)
== END 2023-03-10 14:56 | disposition home or self-care (01) ==
LOC: HO.LAB 14:55
PROVIDERS: PCP Internal Medicine; Visit Provider Nurse Practitioner Family
DX: R14.0 Abdominal distension (gaseous) (principal); K21.9 Gastro-esophageal reflux disease without esophagitis; K59.01 Slow transit constipation; K62.5 Hemorrhage of anus and rectum
CPT/HCPCS: 36415; 80053; 84443; 85027

== ENCOUNTER 2023-03-14 08:50 | Outpatient (AMB) | payer OTHER, SELFPAY ==
[2023-03-14 08:52] VITALS: BP 122/64; PULSE 81; O2SAT 99; BMI 28.4
--- NOTE | 2023-03-14 08:52 | MHC.PC.OV ---
Vital Signs 03/14/23 08:52 Height 4 ft 10 in Weight 136 lb 0.2 oz BMI 28.4 BP 122/64 Blood Pressure Location Lt brachial Position Sitting Pulse 81 Pulse Source Pulse Oximeter Pulse Oximetry (%) 99 Oxygen Delivery Method Room Air Intake Visit Reasons: PE Intake Note: Patient is here today for a physical. Eye Physician Required: No Allergies No Known Allergies Allergy (Verified 03/14/23 09:07) Medication List - Last Reconciled 03/14/23 by Booker Farfan MD docusate sodium 100 mg PO BEDTIME hydrocortisone 2.5% (Proctosol HC) 1 appl IN BID-QID PRN polyethylene glycol 3350 (Miralax) 17 grams PO DAILY sertraline 25 mg PO DAILY 90 days simethicone (Gas Relief (simethicone)) 80 mg PO TID-QID PRN Tobacco use date assessed: 03/14/23 Dental Screening Dental Screen Date: 03/14/23 Did you have a dental visit in the last 12 months?: Yes Did you have a dental problem in the last 6 months where you did not have access to dental care?: No Was dental information given to patient?: Patient has dentist HPI PE HPI Details 32-year-old female with generalized anxiety disorder coming in for physical exam. Last seen in February 2022 review of the notes was seen by Gastroenterology for hemorrhoids constipation problem and blood in the stools patient placed on MiraLax and Colace and Proctosol discussed about diet. LMP 11/ week 2 heavy 1 day light. states anxiety med not taking . [facility] Medical History Miscarriage Potential exposure to STD Impacted cerumen of both ears Difficulty sleeping Anxiety Weight gain Cervical cancer screening Globus sensation Encounter to establish care Surgical History History of tonsillectomy Family History Father Hypothyroid Depression Mental health disorder Multiple sclerosis Mother Diabetes Hypothyroid Hypertension Maternal Aunt No problems noted. 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 1. Little interest or pleasure in doing things: not at all 2. Feeling down, depressed, or hopeless: not at all 3. Trouble falling or staying asleep, or sleeping too much: not at all 4. Feeling tired or having little energy: not at all 5. Poor appetite or overeating: not at all 6. Feeling bad about yourself - or that you are a failure or have let yourself or your family down: not at all 7. Trouble concentrating on things, such as reading the newspaper or watching television: not at all 8. Moving or speaking so slowly that other people could have noticed. Or the opposite - being so fidgety or restless that you have been moving around a lot more than usual: not at all 9. Thoughts that you would be better off or of hurting yourself in some way: not at all Total score: 0 Depression Screening Interpretation: Negative Depression Screening Done: Yes 31011 - PHQ-9 Billing: Yes Source: Developed by Drs. Lorenzo Perez, Isabel De La Cruz, Kye Pratt and colleagues, with an educational karen from [employer]. Thrive Questionnaire Date Thrive assessed: 08/27/21 AUDIT C Alcohol Use Questionnaire (AUDIT-C) 1. How often do you have a drink containing alcohol?: 2-4 times a month 2. How many drinks containing alcohol do you have on a typical day when you are drinking?: 3 or 4 3. How often do you have six or more drinks on one occasion?: Never Total Score: 3 Score Reviewed/Action Taken: Yes TALHA-7 AMB Questionnaire TALHA-7 Date TALHA - 7 assessed: 01/16/23 Feeling nervous, anxious, or on edge: 0 = Not at all Not being able to stop or control worryin = Not at all Worrying too much about different things: 0 = Not at all Trouble relaxin = Not at all Being so restless that it is hard to sit still: 0 = Not at all Becoming easily annoyed or irritable: 0 = Not at all Feeling afraid as if something awful might happen: 0 = Not at all Total TALHA-7 score (0-4 normal; 5-9 mild; 10-14 moderate; 15-21 severe): 0 Source: Developed by Drs. Lorenzo Perez, Isabel De La Cruz, Kye Pratt and colleagues, with an educational karen from [employer]. TALHA-7 Assessment Billing TALHA-7 Assessment Tool: TALHA-7 Assessment 97920 Review of Systems Const Denies poor appetite and Denies weakness Eyes Denies no additional complaints ENT Reports Normal hearing present, Denies dizziness, Denies nasal congestion, Denies tinnitus and Denies sore throat Card Denies chest pain, Denies syncope, Denies rapid heart rate and Denies dyspnea Resp Denies cough and Denies dyspnea GI Denies change in stool character, Reports constipation, Denies diarrhea, Denies nausea and Denies vomiting Denies urinary frequency, Denies difficulty voiding and Denies dysuria Neuro Reports Normal hearing present, Denies confusion, Denies dizziness, Denies syncope and Denies weakness Psych Denies confusion Physical exam (Primary Care) Vital Signs: Last Vital Signs Pulse 81 03/14/23 08:52 BP 122/64 03/14/23 08:52 Pulse Ox 99 03/14/23 08:52 Oxygen Delivery Method Room Air 03/14/23 08:52 BMI result Body Mass Index 28.4 Tobacco/Smoking Status: Tobacco use Status Tobacco use date assessed 03/14/23 03/14/23 08:53 Patient Tobacco Use Status Never used Tobacco 03/14/23 08:53 e-Cigarette/Vaping Use Never Used 03/14/23 08:53 PHQ-9: PHQ-9 Score PHQ-9: Total score 0 03/14/23 09:09 Depression Screening Interpretation: Negative Thrive Assessment: Date of Thrive Assessment Date Thrive assessed 08/27/21 03/14/23 08:53 Const General: No confusion Orientation/consciousness: No confusion HENMT Other: impacted cerumen bilateral Head: Yes normocephalic Ears: external ears normal Face and sinus: Yes normal facial exam Mouth: moist mucous membranes Throat: Yes tonsils normal Eyes Conjunctivae: conjunctivae normal Pupils: Equal, round and reactive pupils present and Pupil accommodation reflex normal Direct Ophthalmoscopy: normal light reflex Neck Neck: No lymphadenopathy Thyroid: Thyroid normal Chest Chest palpation & inspection: normal inspection of the chest Resp Effort & Inspection: normal respiratory effort and no audible wheezes Auscultation: clear to auscultation bilaterally, no crackles, no wheezes and lung sounds not diminished Cardio Rate: regular rate Rhythm: regular rhythm Peripheral pulses: radial pulses present and dorsalis pedis present GI Palpation (GI): no masses Auscultation: normal bowel sounds and normoactive bowel sounds Rectal Exam - Female: deferred Skin General skin exam: no rashes or lesions noted Rashes: no rashes Neuro General: No confusion Cranial nerves: Yes Equal, round and reactive pupils present and Yes Normal hearing present Cognition (Neuro): normal cognition Gait exam (Neuro): Normal gait present Motor exam (neuro): 5/5 motor strength present throughout Deep tendon reflexes (DTR's): Right brachioradialis reflex intensity grade: 2+, Left brachioradialis reflex intensity grade: 2+, Right patellar reflex intensity grade: 2+ and Left patellar reflex intensity grade: 2+ Extrem General: No edema Assessment and Plan Assessment & Plan (1) Annual physical exam: Code(s): Z00.00 - Encounter for general adult medical examination without abnormal findings (2) Anemia: Code(s): D64.9 - Anemia, unspecified Plan: Will continue to monitor (3) Overweight (BMI 25.0-29.9): Code(s): E66.3 - Overweight Plan: Diet and exercise (4) Generalized anxiety disorder: Code(s): F41.1 - Generalized anxiety disorder Plan: stable for now with out med (5) Constipation: Code(s): K59.00 - Constipation, unspecified Qualifiers: Constipation type: slow transit constipation Qualified Code(s): K59.01 - Slow transit constipation Plan: Three rules for constipation 1. Diet need to have a high fiber diet less of meat 2. Increase oral fluids 3. Exercise (6) Vision changes: Code(s): H53.9 - Unspecified visual disturbance Orders: Referrals Ophthalmology Referral H53.9 - Unspecified visual disturbance Coding Level of Care Code Est Pt Prev Care 18-39y(79404) Diagnoses Annual physical exam Z00.00 Anemia D64.9 Overweight (BMI 25.0-29.9) E66.3 Generalized anxiety disorder F41.1 Slow transit constipation K59.01 Constipation type: slow transit constipation Vision changes H53.9 Additional Codes TALHA-7 Assessment Billing - TALHA-7 Assessment Tool: TALHA-7 Assessment 06014 ([id number])
== END 2023-03-14 10:24 | disposition home or self-care (01) ==
PROVIDERS: Visit Provider Internal Medicine
DX: Z00.00 Encounter for general adult medical examination without abnormal findings (principal); D64.9 Anemia, unspecified; E66.3 Overweight; F41.1 Generalized anxiety disorder; K59.01 Slow transit constipation; H53.9 Unspecified visual disturbance
CPT/HCPCS: 99395

== ENCOUNTER 2023-04-08 09:40 | Outpatient (AMB) | payer OTHER, SELFPAY ==
[2023-04-08 09:50] VITALS: BP 130/80; PULSE 72; O2SAT 96; BMI 27.6
--- NOTE | 2023-04-08 09:50 | A.OFFPC_ITS ---
Vital Signs 04/08/23 09:50 Height 4 ft 10 in Weight 132 lb BMI 27.6 BP 130/80 Blood Pressure Location Lt brachial Position Sitting Pulse 72 Pulse Source Pulse Oximeter Pulse Oximetry (%) 96 Oxygen Delivery Method Room Air Intake Visit Reasons: ear irrigation Lathe Operator Required: No Accompanied by: Self / Same As Patient Allergies No Known Allergies Allergy (Verified 04/08/23 09:51) Tobacco use date assessed: 03/14/23 Dental Screening Dental Screen Date: 04/08/23 Did you have a dental visit in the last 12 months?: Yes Did you have a dental problem in the last 6 months where you did not have access to dental care?: No Was dental information given to patient?: Patient has dentist HPI ear irrigation HPI Details 32-year-old female last seen earlier thi s year having history of anemia generalized anxiety disorder constipation. Patient is here for acute problem. Complains of having impacted cerumen bilateral and wants to have it irrigated. [facility] Medical History (Updated 04/08/23 @ 10:16 by Booker Farfan MD) Impacted cerumen of both ears Miscarriage Potential exposure to STD Difficulty sleeping Anxiety Weight gain Cervical cancer screening Globus sensation Encounter to establish care Surgical History History of tonsillectomy Family History Father Hypothyroid Depression Mental health disorder Multiple sclerosis Mother Diabetes Hypothyroid Hypertension Maternal Aunt No problems noted. 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 Lorenzo Perez, Isabel De La Cruz, Kye Pratt and colleagues, with an educational karen from [employer]. Physical exam (Primary Care) Vital Signs: Last Vital Signs Pulse 72 04/08/23 09:50 BP 130/80 04/08/23 09:50 Pulse Ox 96 04/08/23 09:50 Oxygen Delivery Method Room Air 04/08/23 09:50 BMI result Body Mass Index 27.6 Tobacco/Smoking Status: Tobacco use Status Tobacco use date assessed 03/14/23 04/08/23 09:53 Patient Tobacco Use Status Never used Tobacco 04/08/23 09:53 e-Cigarette/Vaping Use Never Used 04/08/23 09:53 Thrive Assessment: Date of Thrive Assessment Date Thrive assessed 08/27/21 04/08/23 09:53 HENMT Other: Impacted cerumen bilateral Office Procedures Cerumen Removal From which ear canal was the cerumen removed: bilateral Removal: irrigation, otoscope w/curette, cerumen loop/spoon and other Notes: patient tolerated procedure well, no complications and ear canal clear [id number] Irrigation/Lavage Assessment and Plan Assessment & Plan (1) Impacted cerumen of both ears: Code(s): H61.23 - Impacted cerumen, bilateral Plan: irrigation and scoop used TM intact bilateral Coding Level of Care Code Est Pt Level 3 (64691) Diagnoses Impacted cerumen of both ears H61.23 CPT Codes Office Procedure - CPT: 34958-Knf Irrigation/Lavage ([id number])
== END 2023-04-08 10:25 | disposition home or self-care (01) ==
PROVIDERS: PCP Internal Medicine; Visit Provider Internal Medicine
DX: H61.23 Impacted cerumen, bilateral (principal)
CPT/HCPCS: 69210; 99212

== ENCOUNTER 2023-04-15 13:27 | Outpatient (REF) | payer OTHER, SELFPAY | END 2023-04-15 13:28 | disposition home or self-care (01) | LOC: HO.LAB 13:27 | PROVIDERS: PCP Internal Medicine; Visit Provider Advanced Practice Midwife | DX: Z13.89 Encounter for screening for other disorder (principal) ==

== ENCOUNTER 2023-04-15 13:27 | Outpatient (AMB) | payer OTHER, SELFPAY ==
--- NOTE | 2023-04-15 13:29 | A.OFFVIS_ITS ---
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 She reports 3 weeks ago she tried an rydm-vgf-gaveejl medication for yeast infection symptoms. She denies any pelvic pain or urinary symptoms. She is currently using condoms and declines control. No new partner changes. 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 [facility] Medical History Impacted cerumen of both ears Miscarriage Potential exposure to STD Difficulty sleeping Anxiety Weight gain Cervical cancer screening Globus sensation Encounter to establish care Surgical History History of tonsillectomy Family History Father Hypothyroid Depression Mental health disorder Multiple sclerosis Mother Diabetes Hypothyroid Hypertension Maternal Aunt No problems noted. 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 Current occupational exposures/hazards: No Sexual orientation: Straight/Heterosexual Gender identity: Female Cognitive needs: No Hearing needs: No Vision needs: Yes Female Reproductive History Menstrual Age of Menarche: 12 Date of last menstrual period: 03/24/23 Review of Systems Const All systems reviewed & are unremarkable except as noted in HPI and below Physical Exam Vital Signs: Last Vital Signs BP 126/70 04/15/23 13:30 BMI result Body Mass Index 28.6 Const General: cooperative, healthy appearing and no acute distress Orientation/consciousness: patient oriented x3 GI Inspection: Yes normal to inspection Palpation (GI): Soft to palpation and Other GI palpation findings present (Nontender) Rectal Exam - Female: visual inspection normal General: Yes bladder normal to palpation External Female Exam: normal appearance of the urethra Speculum Exam - Vagina: normal appearance of the vagina, normal palpation and normal vaginal discharge (White creamy) Speculum Exam - Cervix: normal appearance of the cervix and normal palpation Bimanual exam- vagina & uterus: normal bimanual exam, normal palpation, uterine size normal, bladder normal to palpation, normal palpation, uterine shape normal and non-tender Bimanual Exam- Adnexa, other: normal adnexae Neuro General: patient oriented x3 Assessment & Plan Assessment & Plan (1) Vaginal irritation: Code(s): N89.8 - Other specified noninflammatory disorders of vagina Plan Discussed: To stop waxing. Await for BV and GC chlamydia results. All questions and concerns answered to the best of my ability. Return to the office p.r.n., annual in July 2023. Orders: Orders Bacterial Vaginosis Panel Today N89.8 - Other specified noninflammatory disord ers of vagina CT NG by PCR Today N89.8 - Other specified noninflammatory disorders of vagina Coding Level of Care Code Est Pt Level 3 (36981) Diagnoses Vaginal irritation N89.8
[2023-04-15 13:30] VITALS: BP 126/70; BMI 28.6
== END 2023-04-15 13:57 | disposition home or self-care (01) ==
LOC: HO.HWS 13:27
PROVIDERS: PCP Internal Medicine; Visit Provider Advanced Practice Midwife
DX: N89.8 Other specified noninflammatory disorders of vagina (principal)
CPT/HCPCS: 99213

== ENCOUNTER 2023-04-15 13:45 | Outpatient (REF) | payer OTHER, SELFPAY | END 2023-04-15 13:46 | disposition home or self-care (01) | LOC: HO.LNP 13:45 | PROVIDERS: Visit Provider Advanced Practice Midwife | DX: N89.8 Other specified noninflammatory disorders of vagina (principal) | CPT/HCPCS: 0353U; 87480; 87510; 87660 ==

== ENCOUNTER 2023-05-12 10:24 | Outpatient (REF) | payer OTHER, SELFPAY | END 2023-05-12 10:25 | disposition home or self-care (01) | LOC: HO.LNP 10:24 | PROVIDERS: PCP Internal Medicine; Visit Provider Obstetrics & Gynecology | DX: N93.9 Abnormal uterine and vaginal bleeding, unspecified (principal); N76.0 Acute vaginitis; R10.2 Pelvic and perineal pain; N76.6 Ulceration of vulva; R31.29 Other microscopic hematuria | CPT/HCPCS: 81003; 81025 ==

== ENCOUNTER 2023-05-12 10:24 | Outpatient (AMB) | payer OTHER, SELFPAY ==
--- NOTE | 2023-05-12 10:25 | MHC.OFFVIS ---
Intake Vital Signs 05/12/23 10:26 Height 4 ft 10 in Weight 137 lb BMI 28.6 BP 122/70 Intake Visit Reasons: ? BV Intake Note: pt c/o vag itching, burning, pelvic pain and back pain. UPT neg Urine trace blood 2+ leukocytes Cut Off Sawyer: Cut Off Sawyer Present (Jennifer) Allergies No Known Allergies Allergy (Verified 05/12/23 10:26) HPI HPI Comments History of Present Illness Details Presenting complaining of vulvovaginal irritation associated with mild urinary dysuria, and a left vaginal sore a developed 2 weeks ago around the time of her vulvar waxing. It is nontender , minimal vaginal discharge with no foul odor. In addition, the patient is complaining of bilateral lower pelvic pain radiating to the back with vaginal spotting. LMP was around 2 weeks ago. Last co testing was in 08/03 was negative The patient would like STD screen. [facility] Medical History Impacted cerumen of both ears Miscarriage Potential exposure to STD Difficulty sleeping Anxiety Weight gain Cervical cancer screening Globus sensation Encounter to establish care Surgical History History of tonsillectomy Family History Father Hypothyroid Depression Mental health disorder Multiple sclerosis Mother Diabetes Hypothyroid Hypertension Maternal Aunt No problems noted. 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5 cm nontender) Speculum Exam - Vagina: normal appearance of the vagina, normal palpation, no lesions and no masses Speculum Exam - Cervix: normal appearance of the cervix, normal palpation, no lesions, no masses and nontender Bimanual exam- vagina & uterus: normal bimanual exam, normal palpation, uterine size normal, normal palpation, uterine shape normal, No Cervical tenderness present and non-tender Bimanual Exam- Adnexa, other: normal adnexae Back/Spine/Pelvis Back: no CVA tenderness Results AMB Test Urine AMB Test Urine Negative Last Edit by KATERINE Elliott on 05/12/23 10:36 AMB Urinalysis, Automated UA Leukoctes 2 Ned/uL Last Edit by KATERINE Elliott on 05/12/23 10:36 UA Nitrite Negative Last Edit by KATERINE Elliott on 05/12/23 10:36 UA Urobilinogen 0 mg/dL Last Edit by KATERINE Elliott on 05/12/23 10:36 UA Protein 0 mg/dL Last Edit by Crystal Sanford Luma on 05/12/23 10:36 UA pH 6.0 Last Edit by KATERINE Elliott on 05/12/23 10:36 UA Blood 0.5 Donovan/uL Last Edit by Crystal Sanford Luma on 05/12/23 10:36 UA Specific [place] 1.010 Last Edit by KATERINE Elliott on 05/12/23 10:36 UA Ketone Negative Last Edit by KATERINE Elliott on 05/12/23 10:36 UA Bilirubin 0 mg/dL Last Edit by KATERINE Elliott on 05/12/23 10:36 UA Glucose 0 mg/dL Last Edit by KATERINE Elliott on 05/12/23 10:36 Results Reviewed Results Reviewed: Laboratory Last Values Urine pH (Auto) 6.0 05/12/23 10:29 Specific [place] (Auto) 1.010 05/12/23 10:29 Urine Protein (Auto) 0 mg/dL 05/12/23 10:29 Glucose (UA)(Auto) 0 mg/dL 05/12/23 10:29 Urine Ketones (Auto) Negative 05/12/23 10: Urine Blood (Auto) 0.5 Donovan/uL 05/12/23 10: Urine Nitrite (Auto) Negative 05/12/23 10: Urine Bilirubin (Auto) 0 mg/dL 05/12/23 10: Urine Urobilinogen (Auto) 0 mg/dL 05/12/23 10: Leukocyte Esterase (Auto) 2 Ned/uL 05/12/23 10: Tst Clinic Negative 05/12/23 10:29 Assessment & Plan Assessment & Plan (1) Vulvovaginitis: Code(s): N76.0 - Acute vaginitis Plan: GC/CT, Bacterial Vaginosis panel taken, Terazol 0.8% q.h.s. for 3 days was sent to the patient's pharmacy. The patient was instructed to call if symptoms don't improve in 48 hours. (2) Screen for STD (sexually transmitted disease): Code(s): Z11.3 - Encounter for screening for infections with a predominantly sexual mode of transmission Plan: STD screening tests done includes: BV panel for trichomonas, GC/CT will send patient for serology std screening for HIV, RPR, Hep b s Ag, HepC Ab. Instructions given the patient to schedule a follow-up appointment for repeat serology screen in 6 months for possible false negatives. (3) Vulvar ulcer: Code(s): N76.6 - Ulceration of vulva Plan: Discussed with the patient differential diagnosis of nontender vulvar abscess including but not limited to syphilis, HA. Herpes cultures taken. Syphilis screen ordered. Instructions given the patient to schedule 2 week appointment for vulvar reinspection if herpes cultures are negative and syphilis screen is negative and vulvar Marin is persistent on reinspection will consider vulvar biopsy to rule out HA. All questions answered, the patient verbalized understanding. (4) Microscopic hematuria: Code(s): R31.29 - Other microscopic hematuria Plan: Urine dip showed microscopic hematuria. Will send urine for culture if positive will treat with antibiotics, if negative will repeat urine dip in 2 weeks, if persistent microscopic hematuria with negative urine culture will proceed with CT scan of abdomen pelvis and urology referral. (5) Pelvic pain: Code(s): R10.2 - Pelvic and perineal pain Plan: Urine dip and test done in the office were both negative. GC and chlamydia taken and pelvic ultrasound ordered. Discussed with the patient the differential diagnosis of pelvic pain including but not limited to adnexal, uterine masses, pelvic infections (PID), GI the (Irritable bowel syndrome, diverticulitis, others), musculoskeletal, myofascial pain abdominal wall , adhesions, endometriosis, psychological and others causes. Will check results and treat accordingly. All questions answered, the patient verbalized understanding. Instructed the patient to schedule follow-up appointment in 2 weeks (6) Abnormal uterine bleeding (AUB): Code(s): N93.9 - Abnormal uterine and vaginal bleeding, unspecified Plan: Co testing not indicated. GC and chlamydia taken CBC, TSH, HCG, prolactin and pelvic ultrasound ordered. Discussed with the patient the different causes of abnormal bleeding including thyroid disorders, uterine and ovarian pathology and other potential causes. Discussed with the patient the work up including CBC (to r/o anemia), TSH, pelvic Ultrasound. All questions answered and the patient verbalized understanding. Instructed the patient to schedule an appointment for an endometrial biopsy in 2 weeks. Orders: Orders TSH reflex Free T4 Today N93.9 - Abnormal uterine and vaginal bleeding, unspecified Complete Blood Count no Diff Today N93.9 - Abnormal uterine and vaginal bleeding, unspecified HIV Ab/Ag Today Z20.2 - Contact with and (suspected) exposure to infections with a predominantly sexual mode of transmission Hepatitis B Surface Antigen Today Z20.2 - Contact with and (suspected) exposure to infections with a predominantly sexual mode of transmission AMB HCG Urine Test Today M54.9 - Dorsalgia, unspecified, R10.2 - Pelvic and perineal pain AMB Urinalysis Automated Today M54.9 - Dorsalgia, unspecified, R10.2 - Pelvic and perineal pain CT NG by PCR Today N89.8 - Other specified noninflammatory disorders of vagina Bacterial Vaginosis Panel Today N89.8 - Other specified noninflammatory disorders of vagina Herpes Virus Culture rflx Type Today N89.8 - Other specified noninflammatory disorders of vagina Urine Culture Today R31.9 - Hematuria, unspecified US pelvic and transvaginal Today R10.2 - Pelvic and perineal pain Prolactin Today N93.9 - Abnormal uterine and vaginal bleeding, unspecified HCG Quantitative Today N93.9 - Abnormal uterine and vaginal bleeding, unspecified Syphilis Screen Today Z20.2 - Contact with and (suspected) exposure to infections with a predominantly sexual mode of transmission Hepatitis C Antibody Today Z20.2 - Contact with and (suspected) exposure to infections with a predominantly sexual mode of transmission Medications: New terconazole 0.8% 1 appful vaginal BEDTIME 20 grams 0RF 3 days Coding Level of Care Code Est Pt Level 3 (82652) Diagnoses Vulvovaginitis N76.0 Screen for STD (sexually transmitted disease) Z11.3 Vulvar ulcer N76.6 Microscopic hematuria R31.29 Pelvic pain R10.2 Abnormal uterine bleeding (AUB) N93.9
[2023-05-12 10:26] VITALS: BP 122/70; BMI 28.6
== END 2023-05-12 11:10 | disposition home or self-care (01) ==
LOC: HO.HWS 10:24
PROVIDERS: PCP Internal Medicine; Visit Provider Obstetrics & Gynecology
DX: N76.0 Acute vaginitis (principal); Z11.3 Encounter for screening for infections with a predominantly sexual mode of transmission; N76.6 Ulceration of vulva; R31.29 Other microscopic hematuria; R10.2 Pelvic and perineal pain; N93.9 Abnormal uterine and vaginal bleeding, unspecified; M54.9 Dorsalgia, unspecified
CPT/HCPCS: 99213

== ENCOUNTER 2023-05-12 10:52 | Outpatient (REF) | payer OTHER, SELFPAY | END 2023-05-12 10:53 | disposition home or self-care (01) | LOC: HO.LAB 10:52 | PROVIDERS: Visit Provider Obstetrics & Gynecology | DX: Z13.89 Encounter for screening for other disorder (principal) ==

== ENCOUNTER 2023-05-12 11:03 | Outpatient (REF) | payer OTHER, SELFPAY ==
[2023-05-12 11:35] LABS: Hemoglobin 12.6 g/dl (12.0-16.0); Mean Corpuscular Hemoglobin 28.9 pg (27.0-33.0); Mean Corpuscular Volume 82.6 fL (80.0-98.0); Mean Platelet Volume 9.5 fL (9.4-12.3); Platelet Count 382 X10*3/uL (160-400); Red Blood Count 4.36 X10*6/uL (4.20-5.50); Red Cell Distribution Width 13.1 % (11.0-16.0); White Blood Count 6.5 X10*3/uL (4.8-10.8)
[2023-05-12 13:15] LABS: Syphilis Screen Nonreactive (Nonreactive)
[2023-05-12 13:19] LABS: HBsAGNum1 0.31 S/CO (0.00-0.99); HCG Quantitative < 2 mIU/mL; HIV AB/AG Nonreactive (Nonreactive); HIV Num 1 0.04 S/CO (0.00-0.99); Hepatitis B Surface Antigen Negative (Negative); TSH reflex Free T4 1.66 uIU/mL (0.32-4.0); ~HepC Num1 0.13 S/CO (0.00-0.79); ~Hepatitis C Antibody Nonreactive (Nonreactive)
[2023-05-12 16:39] LABS: CT PCR NOT DETECTED (Not Detect.); NG PCR NOT DETECTED (Not Detect.)
[2023-05-13 12:30] LABS: BV Int Neg Control Negative (Negative); BV Int Pos Control Positive (Positive)
== END 2023-05-12 11:04 | disposition home or self-care (01) ==
LOC: HO.LAB 11:03
PROVIDERS: Visit Provider Obstetrics & Gynecology
DX: Z11.4 Encounter for screening for human immunodeficiency virus [HIV] (principal); N93.9 Abnormal uterine and vaginal bleeding, unspecified; N89.8 Other specified noninflammatory disorders of vagina; R31.9 Hematuria, unspecified; Z20.2 Contact with and (suspected) exposure to infections with a predominantly sexual mode of transmission
CPT/HCPCS: 0353U; 84146; 84443; 84702; 85027; 86780; 86803; 87086; 87255; 87340; 87389; 87480; 87510; 87660

== ENCOUNTER 2023-05-30 11:18 | Outpatient (REF) | payer OTHER, SELFPAY ==
--- NOTE | ~2023-05-30 | US_ITS ---
EXAMINATION: US PELVIS CLINICAL INFORMATION: Pelvis and perineal pain, tenderness. COMPARISON: None available. TECHNIQUE: Ultrasound of the pelvis is performed using both transabdominal and transvaginal transducers along with Doppler. Transvaginal imaging is performed due to inadequate visualization transabdominally. FINDINGS: The uterus measures 9.0 x 3.0 x 4.0 cm. Endometrial thickness is 10 mm. 1.0 x 0.9 x 0.7 cm hypoechoic uterine mass is characteristic of a fibroid. Small amount of free fluid in the cul-de-sac. Left ovary is unremarkable and measures 2.0 x 2.1 x 1.5 cm, volume 3.3 mL. Right ovary measures 2.3 x 3.4 x 2.0 cm, volume 8.2 mL. Right ovarian 1.7 x 1.8 x 1.8 cm simple cyst. There is no specific indication for follow up imaging this time. US/US pelvic and transvaginal IMPRESSION: 1. Endometrial thickness is 10 mm. 2. A 1.0 cm uterine fibroid. 3. Small amount of free fluid in the cul-de-sac. 4. Right ovarian 1.8 cm simple cyst. There is no specific indication for follow-up imaging this time.
== END 2023-05-30 11:19 | disposition home or self-care (01) ==
LOC: HO.US 11:18
PROVIDERS: PCP Internal Medicine; Visit Provider Obstetrics & Gynecology
DX: R10.2 Pelvic and perineal pain (principal)
CPT/HCPCS: 76830; 76856

== ENCOUNTER 2023-06-04 08:15 | Outpatient (AMB) | payer OTHER, SELFPAY ==
--- NOTE | 2023-06-04 08:19 | MHC.OFFVIS ---
Intake Vital Signs 06/04/23 08:34 Height 4 ft 10 in Weight 136 lb 10.986 oz BMI 28.6 BP 112/66 Intake Visit Reasons: EMB Allergies No Known Allergies Allergy (Verified 05/12/23 10:26) HPI HPI Comments History of Present Illness Details Presenting for EMB, repeat urine dip and read inspection of vulvar ulcer. Herpes simplex virus culture were negative. The patient is doing well with no complaints took Terazol and her ulcer has resolved completely [facility] Medical History Impacted cerumen of both ears Miscarriage Potential exposure to STD Difficulty sleeping Anxiety Weight gain Cervical cancer screening Globus sensation Encounter to establish care Surgical History History of tonsillectomy Family History Father Hypothyroid Depression Mental health disorder Multiple sclerosis Mother Diabetes Hypothyroid Hypertension Maternal Aunt No problems noted. 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[place] Current occupational exposures/hazards: No Sexual orientation: Straight/Heterosexual Gender identity: Female Cognitive needs: No Hearing needs: No Vision needs: Yes Female Reproductive History Menstrual Age of Menarche: 12 Date of last menstrual period: 05/20/23 Review of Systems Const All systems reviewed & are unremarkable except as noted in HPI and below Physical Exam Vital Signs: Last Vital Signs BP 112/66 06/04/23 08:34 BMI result Body Mass Index 28.6 General: Yes no CVA tenderness External Female Exam: normal external appearance and normal appearance of the urethra Speculum Exam - Vagina: normal appearance of the vagina, normal palpation, no lesions and no masses Speculum Exam - Cervix: normal appearance of the cervix, normal palpation, no lesions, no masses and nontender Bimanual exam- vagina & uterus: normal bimanual exam, normal palpation, uterine size normal, normal palpation, uterine shape normal, No Cervical tenderness present and non-tender Bimanual Exam- Adnexa, other: normal adnexae Back/Spine/Pelvis Back: no CVA tenderness Office Procedures Endometrial Biopsy Details: The patient was counseled regarding the indication and benefits of endometrial sampling to rule out endometrial pathology including not limited to endometrial hyperplasia or endometrial cancer and others; The alternatives (Either do nothing vs. hysteroscopy D&C) & the risks were discussed with the patient including but not limited: pain, uterine perforation, bleeding, infection, possible injury to bladder, bowel, ureter, possible need for blood transfusion with all its possible risks. The patient verbalized understanding all questions answered and signed consent. Urine test done in the office was negative The patient was placed into the dorsal lithotomy position; a speculum was inserted in the vagina. Using aseptic technique for the procedure, the cervix was cleansed with Betadine. The anterior lip of the cervix was grasped with a single tooth tenaculum. The uterus was sounded to 7 cm with a 4 mm Pipelle was used. Tissues samples were obtained and placed in formalin, in a patient labeled container and sent to the pathology department. At the end of the procedure, there was minimal bleeding noted The patient tolerated the procedure well and was discharged in good condition with the following instructions: Nothing in the vagina until the bleeding stops. No sex until the bleeding stops, to call if any of the following occurs: fever (>100.4), flu-like symptoms, abdominal pain, heavy bleeding, four smelling vaginal discharge. The patient was instructed to schedule a Follow up appointment in 2 weeks to discuss pathology results of the biopsy and treatment options. This note was generated with a voice recognition program. Some errors may have been overlooked during the review of this note. Sometimes these errors may affect the content or meaning of a given sentence. [id number] Biopsy Results AMB Test Urine AMB Test Urine Negative Last Edit by Dolly Nur CMA on 06/04/23 08:39 Results Reviewed Results Reviewed: Laboratory Last Values Tst Clinic Negative 06/04/23 08:35 Assessment & Plan Assessment & Plan (1) Abnormal uterine bleeding (AUB): Code(s): N93.9 - Abnormal uterine and vaginal bleeding, unspecified Plan: EMB done, see procedure note (2) Microscopic hematuria: Code(s): R31.29 - Other microscopic hematuria Plan: Repeat urine dip showed no evidence of microscopic hematuria, the patient was reassured. (3) Vulvar ulcer: Code(s): N76.6 - Ulceration of vulva Plan: Discussed with the patient the finding on pelvic exam showing resolution of her pelvic ulcer. Instructions given to patient to call in case of recurrence of her vulvar ulcer. All questions answered, the patient verbalized understanding Orders: Orders AMB HCG Urine Test Today Z32.02 - Encounter for test, result negative Surgical Today N93.9 - Abnormal uterine and vaginal bleeding, unspecified AMB Urinalysis Dipstick Today R31.29 - Other microscopic hematuria AMB Endometrial Biopsy Today N93.9 - Abnormal uterine and vaginal bleeding, unspecified Coding Level of Care Code Est Pt Level 3 (37224) Procedure Only Diagnoses Abnormal uterine bleeding (AUB) N93.9 Microscopic hematuria R31.29 Vulvar ulcer N76.6 CPT Codes Endometrial Biopsy - CPT: 33612-[id number] Biopsy ([id number])
[2023-06-04 08:34] VITALS: BP 112/66; BMI 28.6
== END 2023-06-04 08:42 | disposition home or self-care (01) ==
LOC: HO.HWS 08:15
PROVIDERS: PCP Internal Medicine; Visit Provider Obstetrics & Gynecology
DX: N76.6 Ulceration of vulva (principal); N93.9 Abnormal uterine and vaginal bleeding, unspecified; R31.29 Other microscopic hematuria; Z32.02 Encounter for pregnancy test, result negative
CPT/HCPCS: 58100; 99213

== ENCOUNTER 2023-06-04 08:15 | Outpatient (REF) | payer OTHER, SELFPAY | END 2023-06-04 08:16 | disposition home or self-care (01) | LOC: HO.LNP 08:15 | PROVIDERS: PCP Internal Medicine; Visit Provider Obstetrics & Gynecology | DX: N93.9 Abnormal uterine and vaginal bleeding, unspecified (principal); R31.29 Other microscopic hematuria; N76.6 Ulceration of vulva | CPT/HCPCS: 58100; 81002; 81025; 88305 ==

== ENCOUNTER 2023-06-17 12:08 | Outpatient (AMB) | payer OTHER, SELFPAY ==
--- NOTE | 2023-06-17 12:11 | A.OFFVIS_ITS ---
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 The patient has no complaints, no vaginal bleeding, no feverishness chills or abdominal pain. 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[employer] [place] Current occupational exposures/hazards: No Sexual orientation: Straight/Heterosexual Gender identity: Female Cognitive needs: No Hearing needs: No Vision needs: Yes Female Reproductive History Menstrual Age of Menarche: 12 Date of last menstrual period: 06/11/23 Total pregnancies: 2 Full term: 2 Review of Systems Card Reports as per HPI and Reports no additional complaints Resp Reports as per HPI and Reports no additional complaints GI Reports as per HPI and Reports no additional complaints Reports as per HPI Physical Exam Vital Signs: Last Vital Signs BP 120/70 06/17/23 12:15 BMI result Body Mass Index 28.6 Const General: cooperative, healthy appearing and comfortable Chest Chest palpation & inspection: normal inspection of the chest and normal palpation of entire chest wall Breast/axilla inspection: normal inspection of the breasts and normal inspection of the axillae Breast/axilla palpation: normal palpation of the breasts, normal palpation of the axillae and no axillary lymphadenopathy Resp Effort & Inspection: normal respiratory effort Auscultation: clear to auscultation bilaterally Percussion: percussion normal Cardio Palpation: normal PMI Rate: regular rate Rhythm: regular rhythm Heart sounds: no murmurs and no rubs Peripheral pulses: Peripheral pulses 2+ throughout GI Inspection: Yes normal to inspection Palpation (GI): Soft to palpation, nontender, no guarding, not rigid and No hepatosplenomegaly present Percussion: Yes normal to percussion Auscultation: normal bowel sounds Rectal Exam - Female: deferred Assessment & Plan Assessment & Plan (1) Abnormal uterine bleeding (AUB): Comment: Fragments suggestive of endometrial polyp on EMB Code(s): N93.9 - Abnormal uterine and vaginal bleeding, unspecified Plan: Discussed with the patient the results of EMB showing fragments of endometrial polyp, recommended hysteroscopy D&C possible polypectomy/myomectomy. Discussed with the patient the procedure , all benefits and risks including but not limited to inability to complete the procedure , insufficient endometrial tissue for a complete evaluation of the endometrial cavity , bleeding, infection, possible need for blood transfusion with all its risk ( HIV,syphilis, Hepatitis, anaphylaxis shock, others..), injury to bladder, rectum, possible need for laparoscopy/laparotomy or hysterectomy. The patient verbalized understanding and signed the consent. Instructions given the patient to schedule a 2 week postoperative appointment Coding Level of Care Code Est Pt Level 3 (45323) Diagnoses Abnormal uterine bleeding (AUB) N93.9
[2023-06-17 12:15] VITALS: BP 120/70; BMI 28.6
== END 2023-06-17 12:45 | disposition home or self-care (01) ==
LOC: HO.HWS 12:08
PROVIDERS: PCP Internal Medicine; Visit Provider Obstetrics & Gynecology
DX: N93.9 Abnormal uterine and vaginal bleeding, unspecified (principal)
CPT/HCPCS: 99213

== ENCOUNTER → 2023-06-17 12:08 | Outpatient (BNVA) | payer OTHER, SELFPAY | PROVIDERS: PCP Internal Medicine; Visit Provider Obstetrics & Gynecology ==

== ENCOUNTER 2023-07-11 07:53 | Day surgery (SDC) | payer OTHER, SELFPAY ==
[2023-07-09 07:32] VITALS: BMI 28.4
--- NOTE | 2023-07-09 14:16 | P.CONAN_ITS ---
Documented by User: Lindsay Mcgill NP 07/09/23 14:17 HPI - Anesthesia Eval Consult details Narrative: 32yo F for D&C Hysteroscopy,possible myomectomy,possible polypectomy PMFSH Active Problems Active Problems: All Active Problems (Updated 06/17/23 @ 12:22 by Pablo Hollis MD) Abnormal uterine bleeding (AUB) (Acute) Pelvic pain (Acute) Microscopic hematuria (Acute) Vulvar ulcer (Acute) Screen for STD (sexually transmitted disease) (Acute) Vulvovaginitis (Acute) Impacted cerumen of both ears (Acute) Vision changes (Acute) BRBPR (bright red blood per rectum) (Acute) Abdominal bloating (Acute) Constipation (Acute) Annual physical exam (Acute) Insomnia (Acute) Dizziness (Acute) Generalized anxiety disorder (Acute) Anemia (Acute) LFT elevation (Acute) Overweight (BMI 25.0-29.9) (Acute) Past Medical History Medical History (Updated 07/11/23 @ 09:48 by Lucita Huang MD) Impacted cerumen of both ears Miscarriage Potential exposure to STD Difficulty sleeping Anxiety Weight gain Cervical cancer screening Globus sensation Encounter to establish care Family History Family History Father Hypothyroid Depression Mental health disorder Multiple sclerosis Mother Diabetes Hypothyroid Hypertension Maternal Aunt No problems noted. 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 Current occupational exposures/hazards: No Sexual orientation: Straight/Heterosexual Gender identity: Female Cognitive needs: No Hearing needs: No Vision needs: Yes Meds Allergies Allergy/AdvReac Type Severity Reaction Status Date / Time No Known Allergies Allergy Verified 06/17/23 12:15 Exam Height,Weight and Vital Signs: Height 4 ft 10 in Weight 61.689 kg Assessment and Plan Assessment Anesthesia Assessment: Chart Reviewed Documented by User: Lucita Huang MD 07/11/23 09:53 PMF Active Problems Active Problems: All Active Problems (Updated 07/11/23 @ 09:03 by Lucita Huang MD) Abnormal uterine bleeding (AUB) (Acute) Pelvic pain (Acute) Microscopic hematuria (Acute) Vulvar ulcer (Acute) Screen for STD (sexually transmitted disease) (Acute) Vulvovaginitis (Acute) Impacted cerumen of both ears (Acute) Vision changes (Acute) BRBPR (bright red blood per rectum) (Acute) Abdominal bloating (Acute) Constipation (Acute) Annual physical exam (Acute) Insomnia (Acute) Dizziness (Acute) Generalized anxiety disorder (Acute) Anemia (Acute) LFT elevation (Acute) Overweight (BMI 25.0-29.9) (Acute) Past Medical History Medical History (Updated 07/11/23 @ 09:48 by Lucita Huang MD) Impacted cerumen of both ears Miscarriage Potential exposure to STD Difficulty sleeping Anxiety Weight gain Cervical cancer screening Globus sensation Encounter to establish care Family History Family History Father Hypothyroid Depression Mental health disorder Multiple sclerosis Mother Diabetes Hypothyroid Hypertension Maternal Aunt No problems noted. 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 Current occupational exposures/hazards: No Sexual orientation: Straight/Heterosexual Gender identity: Female Cognitive needs: No Hearing needs: No Vision needs: Yes Meds Allergies Allergy/AdvReac Type Severity Reaction Status Date / Time No Known Allergies Allergy Verified 06/17/23 12:15 Exam Height,Weight and Vital Signs: Height 4 ft 10 in Weight 61.689 kg Vital Signs Temp Pulse Resp BP Pulse Ox O2 Del Method 07/11/23 08:15 97.1 F 95 18 124/75 98 Room Air Pertinent Lab Results Pertinent Lab Results: Lab Results 07/11/23 Range/Units 07:52 Urine Test NEGATIVE (NEGATIVE) Airway Mallampati Class: II TM Dist: >3cm Neck ROM: Full Loose/Missing/Broken Teeth: Yes (Missing molars. Denies broken or loose teeth) Heart: RRR Lungs: CTAB Assessment and Plan Assessment Anesthesia Assessment: Anesthesia Plan Discussed and Chart Reviewed Final Anesthetic Review Family History of Problems with Anesthesia: No History of Problems with Anesthesia: No NPO: Yes ASA Class: II Final Preanesthetic Review: No Changes in Pt Med Stat, Meds/Allgs Chart Reviewed, Consent Obtained/Reviewed and Anes Risks/Benef Reviewed Patient Risk: Low Procedure Risk: Low Assessment/Block/Sedation in SS: Assess/Block/Sedation-SS Anesthetic Plan Anesthetic Plan: GA Disposition: Standard PACU
[2023-07-11 08:13] VITALS: BMI 28.4
[2023-07-11 08:15] VITALS: BP 124/75; PULSE 95; RESP 18; TEMP 36.2; O2SAT 98
[2023-07-11 08:22] VITALS: BMI 28.4
--- NOTE | 2023-07-11 08:26 | MHC.SHP ---
Pre-Procedural Eval Section A - 24 Hr Update-Section A only Date of Service: 07/11/23 The patient is an INPATIENT: No Changes since office visit: No Cold of Flu in the past 2 weeks, No New Medical Problems, No Changes in Medication and No Patient answered all questions The patient has been examined within 24 hours of the surgical procedure. The History & Physical has been completed within 30 days and I have reviewed it.: Yes Section B - Complete if H&P > 30 days Chief Complaint: Abnormal uterine and vaginal bleeding, Allergies: Allergies Allergy/AdvReac Type Severity Reaction Status Date / Time No Known Allergies Allergy Verified 06/17/23 12:15 Plan Diagnosis/Plan: Unchanged I have reviewed the history and physical and performed a pertinent physical examination on my patient. No changes have occurred unless specified. Time Spent With Patient Time: Total time managing care of this patient today ____ minutes.
[2023-07-11 08:27] LABS: UPreg QC Valid YES; Urine Pregnancy NEGATIVE (NEGATIVE)
[2023-07-11] MEDS: Lactated Ringers 1,000 ML 100 ML IVCONT (08:40)
--- NOTE | 2023-07-11 09:50 | P.BOP_ITS ---
Brief Operative Note Date of Service: 07/11/23 Pre-op diagnosis: Abnormal uterine bleeding, endometrial polyp on EMB pathology Post-op diagnosis: same (Endometrial polyp) Procedure: Hysteroscopy D&C, Polypectomy Surgeon: Pablo Hollis MD Anesthesia: GLMA Was an Software Project Manager used for this Procedure?: No Estimated blood loss (mL): 0 Pathology: other (Endometrial Scrapping. Polyp) Condition: stable Disposition: PACU
--- NOTE | 2023-07-11 09:51 | P.OP_ITS ---
Operative Note Operative Note Date of Service: 07/11/23 Narrative: Preop Diagnosis: Abnormal uterine bleeding, Endometrial polyp on EMB pathology Operation: Diagnostic Hysteroscopy, Dilataion & Curettage and polypectomy Post Op Diagnosis: Endometrial Polyp QBL: Minimal Anesthesia: GLMA Surgeon: Pablo Hollis MD Human Geography Faculty Member: None Complication: None Pathology: Endometrial Scrapings, Endometrial polyp Procedure: The patient was put in the dorsal lithotomy position, scrubbed, and draped in the usual manner. A sterile speculum was inserted in the patient's vagina. The anterior lip of the cervix was grasped with a single tooth tenaculum. The cervix was dilated up to 5 mm, then the scope was inserted in the patient's uterus. Inspection revealed endometrial polyp. The Myosure Reach device was used; it was introduced through the operative channel and polypectomy done with no complications. The scope was then taken out from the uterine cavity, sharp curettings was carried on with minimal to moderate amount of tissues retrieved. At the end of the procedure, all instruments were taken out of the patient uterine and vaginal cavity. The single tooth tenaculum was removed and homeostasis was assured using pressure,. The patient tolerated the procedure well and was transferred to the PACU in a stable condition.
[2023-07-11 09:58] VITALS: BP 115/68; PULSE 82; RESP 14; O2SAT 94
[2023-07-11 10:03] VITALS: BP 115/70; PULSE 85; RESP 18; O2SAT 95
[2023-07-11 10:08] VITALS: BP 115/69; PULSE 77; RESP 18; O2SAT 96
[2023-07-11 10:13] VITALS: BP 123/69; PULSE 66; RESP 18; O2SAT 98
[2023-07-11 10:28] VITALS: BP 131/75; PULSE 64; RESP 18; TEMP 36.4; O2SAT 98
== END 2023-07-11 10:45 | disposition home or self-care (01) ==
PROVIDERS: Nurse Practitioner; PCP Internal Medicine; Visit Provider Obstetrics & Gynecology
PROC: 0UDB8ZZ Extraction of Endometrium, Via Natural or Artificial Opening Endoscopic (ICD-10-PCS; CPT 58558; principal; 2023-07-11 09:50)
DX: N93.9 Abnormal uterine and vaginal bleeding, unspecified (principal); N84.0 Polyp of corpus uteri
CPT/HCPCS: 58558; 81025; 88305; J1885; J2405; J2704; J3010

== ENCOUNTER → 2023-07-11 07:53 | Outpatient (BNV) | payer OTHER, SELFPAY | PROVIDERS: PCP Internal Medicine; Visit Provider Obstetrics & Gynecology | DX: N84.1 Polyp of cervix uteri (principal); N93.9 Abnormal uterine and vaginal bleeding, unspecified | CPT/HCPCS: 58558 ==

== ENCOUNTER 2023-07-24 13:49 | Outpatient (AMB) | payer OTHER, SELFPAY ==
--- NOTE | 2023-07-24 13:50 | A.OFFVIS_ITS ---
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 The pathology showed the following: A. Endometrial polyp, resection: Benign late secretory endometrium, fragments of which may be derived from a benign functional polyp, no atypia or carcinoma. B. Endometrium, curettage: Benign late secretory endometrium; no atypia or carcinoma The following workup was done.: H&H= 12. TSH, prolactin, hCG, GC and chlamydia were negative. Endometrial biopsy pathology showed dyssynchronous endometrium with fragments of endometrial polyp and no evidence of hyperplasia and/or malignancy. Co testing was done in 08/03 was negative. Pelvic ultrasound showed the following: The uterus measures 9.0 x 3.0 x 4.0 cm. Endometrial thickness is 10 mm. 1.0 x 0.9 x 0.7 cm hypoechoic uterine ma ss is characteristic of a fibroid. Small amount of free fluid in the cul-de-sac. Left ovary is unremarkable and measures 2.0 x 2.1 x 1.5 cm, volume 3.3 mL. Right ovary measures 2.3 x 3.4 x 2.0 cm, volume 8.2 mL. Right ovarian 1.7 x 1.8 x 1.8 cm simple cyst. There is no specific indication for follow up imaging this time [facility] Medical History Impacted cerumen of both ears Miscarriage Potential exposure to STD Difficulty sleeping Anxiety Weight gain Cervical cancer screening Globus sensation Encounter to establish care Surgical History History of hysteroscopy History of tonsillectomy Family History Father Hypothyroid Depression Mental health disorder Multiple sclerosis Mother Diabetes Hypothyroid Hypertension Maternal Aunt No problems noted. 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 Current occupational exposures/hazards: No Sexual orientation: Straight/Heterosexual Gender identity: Female Cognitive needs: No Hearing needs: No Vision needs: Yes Female Reproductive History Menstrual Age of Menarche: 12 control method: none Review of Systems Const All systems reviewed & are unremarkable except as noted in HPI and below Reports as per HPI and Reports no additional complaints GI Reports no additional complaints Reports no additional complaints Assessment & Plan Assessment & Plan (1) Abnormal uterine bleeding (AUB): Code(s): N93.9 - Abnormal uterine and vaginal bleeding, unspecified Plan: Discussed with the patient the results of the work up done and options of treatment including Lysteda, BCP's, Mirena IUD, endometrial ablation and hysterectomy. All pros, cons, risks and benefits if each option was discussed with the patient and the patient decided to think about it and get back to us. All questions answered the patient verbalized understanding. (2) Uterine myoma: Code(s): D25.9 - Leiomyoma of uterus, unspecified Plan: Discussed with the patient the findings on pelvic ultrasound & the risk of myosarcoma; discussed with the patient the options of treatment including expectant management versus surgical minute; the pros and cons, risks benefits of each approach were discussed with the patient including the fact that in cases of myosarcoma, surgical treatment can lead to early diagnosis and positively affects the prognosis; after further discussion, the patient decided to proceed with expectant management. Will repeat pelvic ultrasound periodically. Instructions given to patient to call in case any of the following occurs: pressure symptoms, abnormal uterine bleeding, pelvic pain; and to schedule a future office follow-up appointment for reassessment and to order a repeat ultrasound . All questions answered, the patient verbalized understanding and agreed with the plan . I spent a total of 20 minutes reviewing the chart, talking to the patient via video and documenting in the medical record. Telehealth Telehealth Location of provider rendering services: practice address Location of patient: other (work) Patient Identification confirmed using: Name, : Yes Telehealth method: video Patient verbally consented to treatment: Yes Patient verbally consented to billing insurance company: Yes Patient informed of any privacy concerns related to visit: Yes Coding Level of Care Code Tele Est Pt Level 1 (21089) Diagnoses Abnormal uterine bleeding (AUB) N93.9 Uterine myoma D25.9
== END 2023-07-24 16:02 | disposition home or self-care (01) ==
LOC: HO.HWS 13:49
PROVIDERS: PCP Internal Medicine; Visit Provider Obstetrics & Gynecology
DX: N93.9 Abnormal uterine and vaginal bleeding, unspecified (principal); D25.9 Leiomyoma of uterus, unspecified
CPT/HCPCS: 99211

== ENCOUNTER → 2023-07-24 13:49 | Outpatient (BNVA) | payer OTHER, SELFPAY | PROVIDERS: PCP Internal Medicine; Visit Provider Obstetrics & Gynecology ==

== ENCOUNTER 2023-09-23 11:58 | Outpatient (REF) | payer OTHER, SELFPAY | END 2023-09-23 11:59 | disposition home or self-care (01) | LOC: HO.LNP 11:58 | PROVIDERS: PCP Internal Medicine; Visit Provider Obstetrics & Gynecology | DX: Z13.89 Encounter for screening for other disorder (principal) ==

== ENCOUNTER 2023-09-23 11:58 | Outpatient (AMB) | payer OTHER, SELFPAY ==
--- NOTE | 2023-09-23 12:05 | A.OFFVIS_ITS ---
Vital Signs 09/23/23 12:06 Height 4 ft 10 in Weight 136 lb BMI 28.4 Intake Visit Reasons: Vaginal discharge Forensic Medical Examiner Required: No Information Interpreted: non-clinical & clinical Biological Technician: Biological Technician Present (Dolly GARCIAS) Accompanied by: Self / Same As Patient Allergies No Known Allergies Allergy (Verified 09/23/23 12:06) Is last menstrual period known: Yes Last menstrual period: 09/03/23 HPI Comments Details: The patient is presenting complaining of vaginal discharge associated with foul odor, no other associated symptoms, vaginal itching or any other complaint [facility] Medical History Impacted cerumen of both ears Miscarriage Potential exposure to STD Difficulty sleeping Anxiety Weight gain Cervical cancer screening Globus sensation Encounter to establish care Surgical History History of hysteroscopy History of tonsillectomy Family History Father Hypothyroid Depression Mental health disorder Multiple sclerosis Mother Diabetes Hypothyroid Hypertension Maternal Aunt No problems noted. 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 Current occupational exposures/hazards: No Sexual orientation: Straight/Heterosexual Gender identity: Female Cognitive needs: No Hearing needs: No Vision needs: Yes Female Reproductive History Menstrual Age of Menarche: 12 Date of last menstrual period: 09/03/23 Review of Systems Const All systems reviewed & are unremarkable except as noted in HPI and below Physical Exam Vital Signs: BMI result Body Mass Index 28.4 General: Yes no CVA tenderness External Female Exam: normal external appearance and normal appearance of the urethra Speculum Exam - Vagina: normal appearance of the vagina, normal palpation, no lesions and no masses Speculum Exam - Cervix: normal appearance of the cervix, normal palpation, no lesions, no masses and nontender Bimanual exam- vagina & uterus: normal bimanual exam, normal palpation, uterine size normal, normal palpation, uterine shape normal, No Cervical tenderness present and non-tender Bimanual Exam- Adnexa, other: normal adnexae Back/Spine/Pelvis Back: no CVA tenderness Assessment & Plan Assessment & Plan (1) Bacterial vaginosis: Code(s): N76.0 - Acute vaginitis; B96.89 - Other specified bacterial agents as the cause of diseases classified elsewhere Category: Medical Plan: GC and chlamydia cultures with BV panel taken. Per CDC recommendation, will screen for STI, HepBs Ag, HIV, RPR, Hep C Ab ordered. Will treat with Flagyl 500 mg p.o. b.i.d. x 7 days, Instructions given to the patient to refrain from sexual activity or to use condoms consistently and correctly during the BV treatment regimen, not to douch, it might increase the risk for relapse, and to call if symptoms persist or recur. Orders: Orders Hepatitis B Surface Antigen Today B96.89 - Other specified bacterial agents as the cause of diseases classified elsewhere, N76.0 - Acute vaginitis Syphilis Screen Today B96.89 - Other specified bacterial agents as the cause of diseases classified elsewhere, N76.0 - Acute vaginitis Hepatitis C Antibody Today B96.89 - Other specified bacterial agents as the cause of diseases classified elsewhere, N76.0 - Acute vaginitis HIV Ab/Ag Today B96.89 - Other specified bacterial agents as the cause of diseases classified elsewhere, N76.0 - Acute vaginitis Medications: New metronidazole 500 mg PO BID 7 days 14 tabs 0RF Coding Level of Care Code Est Pt Level 3 (25198) Diagnoses Bacterial vaginosis N76.0; B96.89
[2023-09-23 12:06] VITALS: BMI 28.4
== END 2023-09-23 12:23 | disposition home or self-care (01) ==
LOC: HO.HWS 11:58
PROVIDERS: PCP Internal Medicine; Visit Provider Obstetrics & Gynecology
DX: N76.0 Acute vaginitis (principal); B96.89 Other specified bacterial agents as the cause of diseases classified elsewhere
CPT/HCPCS: 99213

== ENCOUNTER 2023-09-23 12:21 | Outpatient (REF) | payer OTHER, SELFPAY ==
[2023-09-23 15:59] LABS: CT PCR NOT DETECTED (Not Detect.); NG PCR NOT DETECTED (Not Detect.)
[2023-09-24 08:23] LABS: Syphilis Screen Nonreactive (Nonreactive)
[2023-09-24 08:28] LABS: HBsAGNum1 0.22 S/CO (0.00-0.99); HIV AB/AG Nonreactive (Nonreactive); HIV Num 1 0.05 S/CO (0.00-0.99); Hepatitis B Surface Antigen Negative (Negative); ~HepC Num1 0.13 S/CO (0.00-0.79); ~Hepatitis C Antibody Nonreactive (Nonreactive)
[2023-09-24 10:51] LABS: Bacterial Vaginosis PCR POSITIVE (Negative); Candida Group PCR NOT DETECTED (Not Detect); Candida glab krusei PCR NOT DETECTED (Not Detect); Trichomonas vaginalis PCR NOT DETECTED (Not Detect)
== END 2023-09-23 12:22 | disposition home or self-care (01) ==
LOC: HO.LAB 12:21
PROVIDERS: PCP Internal Medicine; Visit Provider Obstetrics & Gynecology
DX: N76.0 Acute vaginitis (principal); B96.89 Other specified bacterial agents as the cause of diseases classified elsewhere
CPT/HCPCS: 0352U; 0353U; 86780; 86803; 87340; 87389

== ENCOUNTER 2023-11-04 15:35 | Outpatient (AMB) | payer OTHER, SELFPAY ==
--- NOTE | 2023-11-04 15:36 | MHC.OFFVIS ---
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 No complaints. The patient had an ultrasound in 06/07 which showed myomatous uterus, no pelvic pressure or pain or abnormal uterine bleeding. The patient is requesting STD screen Last Pap/HPV was negative in 08/03 COUNTS INCLUDE [facility] BEDS AT [facility] Medical History Impacted cerumen of both ears Miscarriage Potential exposure to STD Difficulty sleeping Anxiety Weight gain Cervical cancer screening Globus sensation Encounter to establish care Surgical History History of hysteroscopy History of tonsillectomy Family History Father Hypothyroid Depression Mental health disorder Multiple sclerosis Mother Diabetes Hypothyroid Hypertension Maternal Aunt No problems noted. 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 Current occupational exposures/hazards: No Sexual orientation: Straight/Heterosexual Gender identity: Female Cognitive needs: No Hearing needs: No Vision needs: Yes Female Reproductive History Menstrual Age of Menarche: 12 Total pregnancies: 1 Number of Living Children: 0 Ectopics: 1 Date of last pap smear: 07/13/21 Review of Systems Const All systems reviewed & are unremarkable except as noted in HPI and below Card Reports as per HPI Resp Reports as per HPI GI Reports as per HPI and Reports no additional complaints Reports as per HPI Physical Exam Vital Signs: Last Vital Signs BP 112/64 11/04/23 15:40 BMI result Body Mass Index 28.1 Const General: cooperative, healthy appearing and comfortable Chest Chest palpation & inspection: normal inspection of the chest and normal palpation of entire chest wall Breast/axilla inspection: normal inspection of the breasts and normal inspection of the axillae Breast/axilla palpation: normal palpation of the breasts, normal palpation of the axillae and no axillary lymphadenopathy Resp Effort & Inspection: normal respiratory effort Auscultation: clear to auscultation bilaterally Percussion: percussion normal Cardio Palpation: normal PMI Rate: regular rate Rhythm: regular rhythm Heart sounds: no murmurs and no rubs Peripheral pulses: Peripheral pulses 2+ throughout GI Inspection: Yes normal to inspection Palpation (GI): Soft to palpation, nontender, no guarding, not rigid and No hepatosplenomegaly present Percussion: Yes normal to percussion Auscultation: normal bowel sounds Rectal Exam - Female: deferred General: Yes bladder normal to palpation External Female Exam: No lesion Speculum Exam - Vagina: normal appearance of the vagina, normal palpation, normal vaginal discharge and not erythematous Speculum Exam - Cervix: normal appearance of the cervix and normal palpation Bimanual exam- vagina & uterus: normal bimanual exam, normal palpation, uterine size normal, bladder normal to palpation, consistency normal and normal palpation Bimanual Exam- Adnexa, other: normal adnexae, no masses and no tenderness Assessment & Plan Assessment & Plan (1) Well woman exam: Code(s): Z01.419 - Encounter for gynecological examination (general) (routine) without abnormal findings Category: Medical Plan: Cotesting not indicated this year. Counseled the patient about the recommended dietary allowance of 1000 mg of Calcium & 600 IU of vitamin D. The patient was instructed to perform monthly self-breast exams and to schedule an annual exam in a year; All questions answered and the patient verbalized understanding. Instructed the patient to schedule annual exam in a year (2) Uterine myoma: Code(s): D25.9 - Leiomyoma of uterus, unspecified Category: Medical Plan: Pelvic ultrasound ordered. Instructions given the patient to schedule ultrasound follow-up appointment within 2 weeks. (3) Screen for STD (sexually transmitted disease): Code(s): Z11.3 - Encounter for screening for infections with a predominantly sexual mode of transmission Category: Medical Plan: STD screening tests done includes: BV panel for trichomonas, GC/CT will send patient for serology std screening for HIV, RPR, Hep b s Ag, HepC Ab. Instructions given the patient to schedule a follow-up appointment for repeat serology screen in 6 months for possible false negatives. Orders: Orders Bacterial Vaginosis Panel Today B96.89 - Other specified bacterial agents as the cause of diseases classified elsewhere, N76.0 - Acute vaginitis US pelvic and transvaginal Today D25.9 - Leiomyoma of uterus, unspecified, N93.9 - Abnormal uterine and vaginal bleeding, unspecified Hepatitis C Antibody Today Z20.2 - Contact with and (suspected) exposure to infections with a predominantly sexual mode of transmission HIV Ab/Ag Today Z20.2 - Contact with and (suspected) exposure to infections with a predominantly sexual mode of transmission Syphilis Screen Today Z20.2 - Contact with and (suspected) exposure to infections with a predominantly sexual mode of transmission CT NG by PCR Today B96.89 - Other specified bacterial agents as the cause of diseases classified elsewhere, N76.0 - Acute vaginitis Hepatitis B Surface Antigen Today Z20.2 - Contact with and (suspected) exposure to infections with a predominantly sexual mode of transmission Coding Level of Care Code Est Pt Prev Care 18-39y(97021) Diagnoses Well woman exam Z01.419 Uterine myoma D25.9 Screen for STD (sexually transmitted disease) Z11.3
[2023-11-04 15:40] VITALS: BP 112/64; BMI 28.1
== END 2023-11-04 16:01 | disposition home or self-care (01) ==
PROVIDERS: PCP Internal Medicine; Visit Provider Obstetrics & Gynecology
DX: Z01.419 Encounter for gynecological examination (general) (routine) without abnormal findings (principal); D25.9 Leiomyoma of uterus, unspecified; Z11.3 Encounter for screening for infections with a predominantly sexual mode of transmission
CPT/HCPCS: 99395

== ENCOUNTER 2023-11-04 15:35 | Outpatient (REF) | payer OTHER, SELFPAY | END 2023-11-04 15:36 | disposition home or self-care (01) | LOC: HO.LNP 15:35 | PROVIDERS: PCP Internal Medicine; Visit Provider Obstetrics & Gynecology | DX: Z13.89 Encounter for screening for other disorder (principal) ==

== ENCOUNTER 2023-11-04 15:58 | Outpatient (REF) | payer OTHER, SELFPAY ==
[2023-11-05 08:29] LABS: Syphilis Screen Nonreactive (Nonreactive)
[2023-11-05 09:15] LABS: HBsAGNum1 0.29 S/CO (0.00-0.99); HIV AB/AG Nonreactive (Nonreactive); HIV Num 1 0.04 S/CO (0.00-0.99); Hepatitis B Surface Antigen Negative (Negative); ~HepC Num1 0.11 S/CO (0.00-0.79); ~Hepatitis C Antibody Nonreactive (Nonreactive)
[2023-11-05 12:07] LABS: CT PCR NOT DETECTED (Not Detect.); NG PCR NOT DETECTED (Not Detect.)
[2023-11-06 11:15] LABS: Bacterial Vaginosis PCR NEGATIVE (Negative); Candida Group PCR NOT DETECTED (Not Detect); Candida glab krusei PCR NOT DETECTED (Not Detect); Trichomonas vaginalis PCR NOT DETECTED (Not Detect)
== END 2023-11-04 15:59 | disposition home or self-care (01) ==
LOC: HO.LAB 15:58
PROVIDERS: PCP Internal Medicine; Visit Provider Obstetrics & Gynecology
DX: Z20.2 Contact with and (suspected) exposure to infections with a predominantly sexual mode of transmission (principal); N76.0 Acute vaginitis; B96.89 Other specified bacterial agents as the cause of diseases classified elsewhere
CPT/HCPCS: 0352U; 86780; 86803; 87340; 87389; 87491; 87591

== ENCOUNTER 2024-01-23 09:34 | Outpatient (AMB) | payer OTHER, SELFPAY ==
--- NOTE | 2024-01-23 09:34 | AM.OFFVISNUR ---
Intake Visit Reasons: flu shot Allergies No Known Allergies Allergy (Verified 11/04/23 15:41) Office Procedures Flu Questionnaire Does the patient have a severe egg allergy?: No Does the patient have severe life threatening allergies?: No Does the patient have a fever or illness today?: No Has the patient ever had Guillain-Bellevue Syndrome?: No Has the patient ever had any past reaction to a flu shot?: No Assessment & Plan Assessment & Plan Orders: Orders Influenza [id number] Immunization Today Z23 - Encounter for immunization
== END 2024-01-23 10:45 | disposition home or self-care (01) ==
PROVIDERS: PCP Internal Medicine; Visit Provider Internal Medicine
DX: Z23 Encounter for immunization (principal)

== ENCOUNTER → 2024-01-23 09:34 | Outpatient (BNVA) | payer OTHER, SELFPAY | PROVIDERS: PCP Internal Medicine; Visit Provider Internal Medicine | DX: Z23 Encounter for immunization (principal) | CPT/HCPCS: 90471; 90656 ==

== ENCOUNTER 2024-03-16 10:28 | Outpatient (AMB) | payer OTHER, SELFPAY ==
--- NOTE | 2024-03-16 10:33 | MHC.PC.OV ---
Vital Signs 03/16/24 10:34 Height 4 ft 10 in Weight 131 lb BMI 27.4 BP 122/68 Blood Pressure Location Lt brachial Position Sitting Pulse 71 Pulse Source Pulse Oximeter Pulse Oximetry (%) 98 Oxygen Delivery Method Room Air Intake Visit Reasons: ANNUAL Allergies No Known Allergies Allergy (Verified 03/16/24 10:35) Medication List - Last Reconciled 03/16/24 by Booker Farfan MD fexofenadine (Yelena Allergy) 180 mg PO DAILY hydrocortisone 2.5% (Proctosol HC) 1 appl MS BID-QID PRN polyethylene glycol 3350 (Miralax) 17 grams PO DAILY sertraline 25 mg PO DAILY 90 days Tobacco use date assessed: 03/16/24 Dental Screening Dental Screen Date: 03/16/24 Did you have a dental visit in the last 12 months?: Yes Did you have a dental problem in the last 6 months where you did not have access to dental care?: No Was dental information given to patient?: Patient has dentist HPI ANNUAL HPI Details 33-year-old overweight female with a history of anemia generalized anxiety disorder coming in for physical exam last seen in 04/02/2023. Patient's Paps is up-to-date. complains of constipation , also having wild dreams at night at the time during menstruation - rectal bleeding at times, does admit to constipation. [facility] Medical History Impacted cerumen of both ears Miscarriage Potential exposure to STD Difficulty sleeping Anxiety Weight gain Cervical cancer screening Globus sensation Encounter to establish care Surgical History History of hysteroscopy History of tonsillectomy Family History Father Hypothyroid Depression Mental health disorder Multiple sclerosis Mother Diabetes Hypothyroid Hypertension Maternal Aunt No problems noted. 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 1. Little interest or pleasure in doing things: not at all 2. Feeling down, depressed, or hopeless: not at all 3. Trouble falling or staying asleep, or sleeping too much: not at all 4. Feeling tired or having little energy: not at all 5. Poor appetite or overeating: not at all 6. Feeling bad about yourself - or that you are a failure or have let yourself or your family down: not at all 7. Trouble concentrating on things, such as reading the newspaper or watching television: not at all 8. Moving or speaking so slowly that other people could have noticed. Or the opposite - being so fidgety or restless that you have been moving around a lot more than usual: not at all 9. Thoughts that you would be better off or of hurting yourself in some way: not at all Total score: 0 Source: Developed by Drs. Lorenzo Perez, Isabel De La Cruz, Kye Pratt and colleagues, with an educational karen from [employer]. Thrive Questionnaire Date Thrive assessed: 03/16/24 I am a: Patient What is your living situation today?: I have a steady place to live Within the past 12 months, did the food you bought not last and you didn't have the money to get more?: I choose not to answer this question Within the past 12 months, did you worry whether your food would run out before you got money to buy more?: Never true Do you have trouble paying for medicines?: No Do you have trouble getting transportation to medical appointments?: No Do you have trouble paying your heating and electricity bill?: No Do you have trouble taking care of your child, family member or friend?: No Do you have trouble with day-to-day activities such as bathing, preparing meals, shopping, managing finances, etc.?: No Are you currently unemployed and looking for a job?: No Are you interested in more education?: No Please select the resources that you would like help with: Paying for medicine and None Currently or been in a relationship where the following occur: I choose not to answer THRIVE Score: 0 AUDIT C Alcohol Use Questionnaire (AUDIT-C) 1. How often do you have a drink containing alcohol?: Never Total Score: 0 TALHA-7 AMB Questionnaire TALHA-7 Date TALHA - 7 assessed: 03/16/24 Feeling nervous, anxious, or on edge: 0 = Not at all Not being able to stop or control worryin = Not at all Worrying too much about different things: 0 = Not at all Trouble relaxin = Not at all Being so restless that it is hard to sit still: 0 = Not at all Becoming easily annoyed or irritable: 0 = Not at all Feeling afraid as if something awful might happen: 0 = Not at all Total TALHA-7 score (0-4 normal; 5-9 mild; 10-14 moderate; 15-21 severe): 0 Source: Developed by Drs. Lorenzo Perez, Isabel De La Cruz, Kye Pratt and colleagues, with an educational karen from [employer]. Review of Systems Const Denies poor appetite and Denies weakness Eyes Denies no additional complaints ENT Reports Normal hearing present, Denies dizziness, Denies nasal congestion, Denies tinnitus and Denies sore throat Card Denies chest pain, Denies syncope, Denies rapid heart rate and Denies dyspnea Resp Denies cough and Denies dyspnea GI Denies change in stool character, Reports constipation, Denies diarrhea, Denies nausea and Denies vomiting Denies urinary frequency, Denies difficulty voiding and Denies dysuria Neuro Reports Normal hearing present, Denies confusion, Denies dizziness, Denies syncope and Denies weakness Psych Denies confusion Physical exam (Primary Care) Vital Signs: Last Vital Signs Pulse 71 03/16/24 10:34 BP 122/68 03/16/24 10:34 Pulse Ox 98 03/16/24 10:34 Oxygen Delivery Method Room Air 03/16/24 10:34 BMI result Body Mass Index 27.4 Tobacco/Smoking Status: Tobacco use Status Tobacco use date assessed 03/16/24 03/16/24 10:36 Patient Tobacco Use Status Never used Tobacco 03/16/24 10:36 Tobacco use type Cigarette 03/16/24 10:36 e-Cigarette/Vaping Use Never Used 03/16/24 10:36 PHQ-9: PHQ-9 Score PHQ-9: Total score 0 03/16/24 11:15 Thrive Assessment: Date of Thrive Assessment Date Thrive assessed 03/16/24 03/16/24 10:36 Currently or been in a relationship where the following occur: I choose not to answer Const General: No confusion Orientation/consciousness: No confusion HENMT Head: Yes normocephalic Ears: external ears normal and TM's normal bilaterally Face and sinus: Yes normal facial exam Mouth: moist mucous membranes Throat: Yes tonsils normal Eyes Conjunctivae: conjunctivae normal Pupils: Equal, round and reactive pupils present and Pupil accommodation reflex normal Direct Ophthalmoscopy: normal light reflex Neck Neck: No lymphadenopathy Thyroid: Thyroid normal Chest Chest palpation & inspection: normal inspection of the chest Resp Effort & Inspection: normal respiratory effort and no audible wheezes Auscultation: clear to auscultation bilaterally, no crackles, no wheezes and lung sounds not diminished Cardio Rate: regular rate Rhythm: regular rhythm Peripheral pulses: radial pulses present and dorsalis pedis present GI Palpation (GI): no masses Auscultation: normal bowel sounds and normoactive bowel sounds Rectal Exam - Female: deferred Skin General skin exam: no rashes or lesions noted Rashes: no rashes Neuro General: No confusion Cranial nerves: Yes Equal, round and reactive pupils present and Yes Normal hearing present Cognition (Neuro): normal cognition Gait exam (Neuro): Normal gait present Motor exam (neuro): 5/5 motor strength present throughout Deep tendon reflexes (DTR's): Right brachioradialis reflex intensity grade: 2+, Left brachioradialis reflex intensity grade: 2+, Right patellar reflex intensity grade: 2+ and Left patellar reflex intensity grade: 2+ Extrem General: No edema Coding Level of Care Code Est Pt Prev Care 18-39y(71122) Diagnoses Annual physical exam Z00.00 Generalized anxiety disorder F41.1 Slow transit constipation K59.01 Constipation type: slow transit constipation Assessment & Plan Assessment & Plan (1) Annual physical exam: Code(s): Z00.00 - Encounter for general adult medical examination without abnormal findings Category: Medical Plan: Patient is advised to eat healthy, keep well hydrated, keep active and have adequate sleep. (2) Generalized anxiety disorder: Code(s): F41.1 - Generalized anxiety disorder Category: Medical Plan: Continue with present medication (3) Constipation: Code(s): K59.00 - Constipation, unspecified Category: Medical Qualifiers: Constipation type: slow transit constipation Qualified Code(s): K59.01 - Slow transit constipation Plan: Three rules for constipation 1. Diet need to have a high fiber diet less of meat 2. Increase oral fluids 3. Exercise Orders: Orders Ferritin Today F41.1 - Generalized anxiety disorder Reticulocyte Count Today F41.1 - Generalized anxiety disorder Free T4 (Free Thyroxine) Today F41.1 - Generalized anxiety disorder Thyroid Stimulating Hormone Today F41.1 - Generalized anxiety disorder Complete Blood Count Auto Diff Today F41.1 - Generalized anxiety disorder Comprehensive Met. Panel Today F41.1 - Generalized anxiety disorder Lipid Panel Today E78.00 - Pure hypercholesterolemia, unspecified, F41.1 - Generalized anxiety disorder IRON PROFILE Today F41.1 - Generalized anxiety disorder Vitamin B12 and Folate Today F41.1 - Generalized anxiety disorder Vitamin D 25-OH Total Today F41.1 - Generalized anxiety disorder UA w Microscopic Today F41.1 - Generalized anxiety disorder Medications: New sennosides-docusate sodium 8.6-50 mg (Senna with Docusate Sodium) 2 tab-caps (2 x 8.6-50 mg) PO BEDTIME 60 tabs 4RF K59.01 - Slow transit constipation Refilled sertraline 25 mg PO DAILY 90 days 90 tabs 2RF F41.1 - Generalized anxiety disorder
[2024-03-16 10:34] VITALS: BP 122/68; PULSE 71; O2SAT 98; BMI 27.4
== END 2024-03-16 11:57 | disposition home or self-care (01) ==
PROVIDERS: PCP Internal Medicine; Visit Provider Internal Medicine
DX: Z00.00 Encounter for general adult medical examination without abnormal findings (principal); F41.1 Generalized anxiety disorder; K59.01 Slow transit constipation

== ENCOUNTER 2024-05-19 08:41 | Outpatient (REF) | payer OTHER, SELFPAY ==
[2024-05-19 14:20] LABS: Influenza A PCR NEGATIVE (Negative); Influenza B PCR NEGATIVE (Negative); Resp Syncy Virus RNA Qual PCR NEGATIVE (Negative); SARS COV2 PCR INHOUSE NEGATIVE (Negative)
--- OUTSIDE RECORDS SUMMARY | 2024-05-19 14:31 | XMS_ITS | Clinical Summary ---
Author Organization [facility] Address [address] [place] [address] Care Team Providers Care Rfid Developer Name Role Phone Desiree Samuel MD Primary Care Provider Azalia chi Allergies No known active allergies Medications No known medications Active Problems Problem Noted Date NO ACTIVE MEDICAL PROBLEMS Immunizations Name Administration Dates Next Due DTaP 09/13/1995, 3,09/13/1991,07/14/1991,04/1990 HIB 07/13/1992,09/13/1991,07/14/1991 ,01/12/1991 Hepatitis B-3 Dose (<19yrs) 07/08/1995, 5,12/13/1994 Influenza (> 6 Months) 12/26/2011 MMR (Magyznd-Fsifc-Itfvgdq) 07/13/1993, 3 PPD-RBMG 05/16/2015 Polio (IPV) 07/13/1993,07/13/1992,07/14/1991 ,01/12/1991 Tdap 11/15/2019,02/17/2001 Family History Medical History Relation Name Comments Multiple Sclerosis Father Diabetes Maternal Grandmother Hypertension Maternal Grandmother anxiety Maternal Grandmother Diabetes Mother htn, high chol, thyroid disease CA Breast Negative Hx CA Colon Negative Hx CA Ovarian Negative Hx Uterine Cancer Negative Hx Relation Name Status Comments Brother 1 Alive Brother 2 Alive Father Alive Maternal Grandfather Alive Maternal Grandmother Alive Mother Alive Paternal Grandfather Paternal Grandmother Sister 1 Alive Sister 2 Alive Social History Tobacco Use Types Packs/Day Years Used Date Smoking Tobacco: Never Smokeless Tobacco: Never Alcohol Use Standard Drinks/Week Comments No 0 (1 standard drink = 0.6 oz pur e alcohol) Sex Assigned at Date Recorded Not on file Last Filed Vital Signs Vital Sign Reading Time Taken Comments Blood Pressure 112/77 12/10/2019 9:39 AM EDT Pulse 95 12/10/2019 9:39 AM EDT Temperature 36.9 ??C (98.5 ??F) 11/15/2019 9:31 AM ED T Respiratory Rate 16 12/10/2019 9:39 AM EDT Oxygen Saturation - - Inhaled Oxygen Concentration - - Weight 52.3 kg (115 lb 4.8 oz) 12/10/2019 9:39 A M EDT Height 149.9 cm (4' 11 ) 12/10/2019 9:39 AM EDT Body Mass Index 23.29 12/10/2019 9:39 AM EDT Plan of Treatment Health Maintenance Due Date Last Done Comments Covid-19 Vaccine (#1) 05/19/1991 CERVICAL CANCER SCREENING 12/09/2022 12/10/2019, 04/2016 INFLUENZA (#1) 2023 05/31/2016 (Refu sed), 12/26/2011 DEPRESSION SCREENING/FOLLOWUP 04/14/2024 SOCIAL NEEDS SCREENING 04/14/2024 CHOLESTEROL SCREENING 11/14/2024 11/15/2019 , 09/02/2018, 05/31/2016 BASELINE HEALTH EXAM 18-39 11/15/202411/15, 11/15/2019, 11/15/2019, Additional history exists DTAP/TDAP/TD (8 - Td or Tdap) 11/14/2029, 02/17/2001, 09/13/1995, Additional history exists PNEUMOCOCCAL VACCINE FOR HIG H RISK PATIENTS (#1) 11/17/2055 Care Teams Rfid Developer Relationship Specialty Start Date End Date Desiree Samuel MD PCP - General Internal Medicine 12/01/20
--- OUTSIDE RECORDS SUMMARY | 2024-05-19 14:31 | XMS_ITS | Clinical Summary ---
Author Organization [employer] Address [address] [place] [address] [address] [place] [address] Care Team Providers Care Curing Machine Operator Name Role Phone Unavailable Primary Care Provider [...]
--- OUTSIDE RECORDS SUMMARY | 2024-05-19 14:31 | XMS_ITS | Encounter Summary ---
Author Organization [employer] Address [address] [place] [address] [address] [place] [address] Care Team Providers Care Money Room Teller Name Role Phone Venita Miles Primary Care Provider [phone] Brittaney Browning NP Primary Care Provider [phone] Encounter Details Date Type Department Care Team (Latest Contact Info) Description 12/31/2018 Abstract [facility] CONVERSIONS Dental, Provider, DDS Social History Tobacco [...] on filedocumented in this encounter Care Teams Money Room Teller Relationship Specialty Start Date End Date Venita Miles FNP [address] [place] [address] PCP - General Family Medicine 01/14/22 06/11/23 Brittaney Browning NP [address] [place] [address] PCP - General Family Medicine 06/12/23 05/04/24 documented as of this encounter
== END 2024-05-19 08:42 | disposition home or self-care (01) ==
LOC: HO.LAB 08:41
PROVIDERS: PCP Internal Medicine
DX: J06.9 Acute upper respiratory infection, unspecified (principal); R09.89 Other specified symptoms and signs involving the circulatory and respiratory systems; F41.1 Generalized anxiety disorder
CPT/HCPCS: 0241U; 96127

== ENCOUNTER 2024-05-19 08:41 | Outpatient (AMB) | payer OTHER, SELFPAY ==
--- NOTE | 2024-05-19 08:41 | MHC.PC.OV ---
Intake Visit Reasons: Cold Symptoms Intake Note: Patient is here to follow up on Cold Symptoms. Lead Sales Consultant Required: No Land Classifier: Not Required per policy Accompanied by: Self / Same As Patient Allergies No Known Allergies Allergy (Verified 05/19/24 08:42) Medication List - Last Reconciled 05/19/24 by Yari Arroyo PA-C fexofenadine (Yelena Allergy) 180 mg PO DAILY hydrocortisone 2.5% (Proctosol HC) 1 appl MO BID-QID PRN ondansetron 4 mg PO Q8H polyethylene glycol 3350 (Miralax) 17 grams PO DAILY sennosides-docusate sodium 8.6-50 mg (Senna with Docusate Sodium) 2 tab-caps (2 x 8.6-50 mg) PO BEDTIME sertraline 25 mg PO DAILY 90 days Tobacco use date assessed: 05/19/24 Dental Screening Dental Screen Date: 05/19/24 Did you have a dental visit in the last 12 months?: Yes Did you have a dental problem in the last 6 months where you did not have access to dental care?: No Was dental information given to patient?: Patient has dentist HPI Cold Symptoms HPI Details 33-year-old female past medical history of generalized anxiety disorder last seen by 03/2024 presenting via telehealth for acute problem. Patient tells us today she has been congested for the last 3 days and has result her nose has been very dry and now bleeds when she uses tissues. Because she is unable to breathe through her nose she has been waking up in the morning with dry mouth and sore throat. Today she mentioned she woke up weaker in the last few days with a dry cough. She is expecting her menses is unsure if her weakness is related to this. [facility] Medical History Impacted cerumen of both ears Miscarriage Potential exposure to STD Difficulty sleeping Anxiety Weight gain Cervical cancer screening Globus sensation Encounter to establish care Surgical History History of hysteroscopy History of tonsillectomy Family History Father Hypothyroid Depression Mental health disorder Multiple sclerosis Mother Diabetes Hypothyroid Hypertension Maternal Aunt No problems noted. 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 1. Little interest or pleasure in doing things: not at all 2. Feeling down, depressed, or hopeless: not at all 3. Trouble falling or staying asleep, or sleeping too much: not at all 4. Feeling tired or having little energy: not at all 5. Poor appetite or overeating: not at all 6. Feeling bad about yourself - or that you are a failure or have let yourself or your family down: not at all 7. Trouble concentrating on things, such as reading the newspaper or watching television: not at all 8. Moving or speaking so slowly that other people could have noticed. Or the opposite - being so fidgety or restless that you have been moving around a lot more than usual: not at all 9. Thoughts that you would be better off or of hurting yourself in some way: not at all Total score: 0 Depression Screening Interpretation: Negative Depression Screening Done: Yes Source: Developed by Drs. Lorenzo Perez, Isabel De La Cruz, Kye Pratt and colleagues, with an educational karen from [employer]. Thrive Questionnaire Date Thrive assessed: 05/19/24 I am a: Patient What is your living situation today?: I have a steady place to live Within the past 12 months, did the food you bought not last and you didn't have the money to get more?: Never true Within the past 12 months, did you worry whether your food would run out before you got money to buy more?: Never true Do you have trouble paying for medicines?: No Do you have trouble getting transportation to medical appointments?: No Do you have trouble paying your heating and electricity bill?: No Do you have trouble taking care of your child, family member or friend?: No Do you have trouble with day-to-day activities such as bathing, preparing meals, shopping, managing finances, etc.?: No Are you currently unemployed and looking for a job?: No Are you interested in more education?: No Please select the resources that you would like help with: None Currently or been in a relationship where the following occur: No concerns reported THRIVE Score: 0 AUDIT C Alcohol Use Questionnaire (AUDIT-C) 1. How often do you have a drink containing alcohol?: Never Total Score: 0 TALHA-7 AMB Questionnaire TALHA-7 Date TALHA - 7 assessed: 05/19/24 Feeling nervous, anxious, or on edge: 0 = Not at all Not being able to stop or control worryin = Not at all Worrying too much about different things: 0 = Not at all Trouble relaxin = Not at all Being so restless that it is hard to sit still: 0 = Not at all Becoming easily annoyed or irritable: 0 = Not at all Feeling afraid as if something awful might happen: 0 = Not at all Total TALHA-7 score (0-4 normal; 5-9 mild; 10-14 moderate; 15-21 severe): 0 Source: Developed by Drs. Lorenzo Perez, Isabel De La Cruz, Kye Pratt and colleagues, with an educational karen from [employer]. Review of Systems Const Denies body aches, Denies chills, Denies fever(s), Denies headache(s) and Denies poor appetite Eyes Reports no additional complaints ENT Denies dysphagia, Denies dizziness, Reports dry mouth, Denies headache(s), Reports nasal congestion, Reports nasal discharge and Denies odynophagia Card Denies chest pain, Denies syncope, Denies edema, Denies irregular heart rhythm, Denies lightheadedness and Denies dyspnea Resp Reports cough and Denies dyspnea GI Denies abdominal pain, Denies constipation, Denies dysphagia, Denies diarrhea, Denies nausea, Denies odynophagia and Denies vomiting Reports no additional complaints Musc Reports no additional complaints and Denies abnormal gait Skin/Breast Reports system reviewed and no additional complaints, except as documented Neuro Denies abnormal gait, Denies dizziness, Denies syncope and Denies headache(s) Psych Reports no additional complaints Physical exam (Primary Care) Vital Signs: Physical exam not performed due to nature of telehealth visit Tobacco/Smoking Status: Tobacco use Status Tobacco use date assessed 05/19/24 05/19/24 08:43 Patient Tobacco Use Status Never used Tobacco 05/19/24 08:43 Tobacco use type Cigarette 05/19/24 08:43 e-Cigarette/Vaping Use Never Used 05/19/24 08:43 PHQ-9: PHQ-9 Score PHQ-9: Total score 0 05/19/24 08:43 Depression Screening Interpretation: Negative Thrive Assessment: Date of Thrive Assessment Date Thrive assessed 05/19/24 05/19/24 08:43 Currently or been in a relationship where the following occur: No concerns reported Telehealth Telehealth Telehealth Platform: Telephone Location of provider rendering services: practice address Location of patient: address on file Patient Identification confirmed using: Name, : Yes Telehealth method: voice only Patient verbally consented to treatment: Yes Patient verbally consented to billing insurance company: Yes Patient informed of any privacy concerns related to visit: Yes Coding Level of Care Code Tele Est Pt Level 3 (05980) Diagnoses Upper respiratory infection J06.9 Assessment & Plan Assessment & Plan (1) Upper respiratory infection: Code(s): J06.9 - Acute upper respiratory infection, unspecified Category: Medical Plan: Ordered for viral testing with COVID/RSV/flu for further evaluation. Advised patient to use [id number] saline rinse or Neti pot for sinus congestion and dry nose. Patient can also use Sudafed for sinus congestion but no longer than 3 days. I did also send Zofran as she is having nausea associated with her menses. Plan This note was constructed using voice recognition software. While every effort has been made to ensure accuracy and commercial painter, still areas may have been included sometimes these areas may affect the content or meeting of the given symptoms. Total time spent caring for the patient today was 15 minutes. This includes time spent before the visit reviewing the chart, time spent during the visit, and time spent after the visit and documentation. Orders: Orders SARS-CoV2/FLU/RSV Today R09.89 - Other specified symptoms and signs involving the circulatory and respiratory systems Medications: New ondansetron 4 mg PO Q8H 14 tabs 0RF
--- OUTSIDE RECORDS SUMMARY | 2024-05-19 08:42 | XMS_ITS | Encounter Summary ---
Author Organization [employer] Address [address] [place] [address] [address] [place] [address] Care Team Providers Care Peoplesoft Hrms Developer Name Role Phone Venita Miles Primary Care Provider [phone] Brittaney Browning NP Primary Care Provider [phone] Encounter Details Date Type Department Care Team (Latest Contact Info) Description 12/31/2018 Abstract [facility] Dental, Provider, DDS Social History Tobacco Use Types Packs/Day Years Used Date Smoking Tobacco: Never Assessed Comments Unknown Sex and Gender Information Value Date Recorded Sex Assigned at Female 02/11/2022 10:17 AM EDT Legal Sex Female 10:17 AM EDT Gender Identity Female 02/11/2022 10:17 AM EDT Sexual Orientation Choose not to disclose 2021 10:17 AM EDT documented as of this encounter Plan of Treatment Not on file documented as of this encounter Visit Diagnoses Not on filedocumented in this encounter Care Teams Peoples[employer] Hr[employer] Developer Relationship Specialty Start Date End Date Venita Miles FNP [address] [place] [address] PCP - General Family Medicine 01/14/22 06/11/23 Brittaney Browning NP [address] [place] [address] PCP - General Family Medicine 06/12/23 05/04/24 documented as of this encounter
--- OUTSIDE RECORDS SUMMARY | 2024-05-19 08:42 | XMS_ITS | Clinical Summary ---
Author Organization [employer] Address [address] [place] [address] [address] [place] [address] Care Team Providers Care Pill Packer Name Role Phone Unavailable Primary Care Provider Unavailabl e Social History Tobacco Use Types Packs/Day Years Used Date Smoking Tobacco: Never Assessed Comments Unknown Sex and Gender Information Value Date Recorded Sex Assigned at Female 02/11/2022 10:17 AM EDT Legal Sex Female 10:17 AM EDT Gender Identity Female 02/11/2022 10:17 AM EDT Sexual Orientation Choose not to disclose 2021 10:17 AM EDT Plan of Treatment Health Maintenance Due Date Last Done Comments Depression Screening 1990 Alcohol/Substance Use Screening 2002 Tobacco Screening 2002 Family Planning (PISQ) 2005 Pap Smear 11/17/2011 Cervical Cancer Screening 2020 HPV/Cotest 2020 COVID-19 Vaccine ( season) 2023 10/19/2020 Influenza Vaccine (#1) 2023 03/05/2021, 2011 DTaP/Tdap/Td Vaccines (8 - Td or Tdap) 11/14/2029 11/15/2019, 02/17/2001, 09/13/1995, Additional history exists Zoster Vaccines (1 of 2) 2040 RSV Patients and Patients Aged 60 years or older (1 - 1-dose 75+ series) 2065 HIB Vaccines Completed 07/13/1992, 04/1991, 07/14/1991, Additional history exists IPV Vaccines Completed 07/13/1993, 04/1992, 07/14/1991, Additional history exists Hepatitis B Vaccines Completed 07/08/1995, 03/14/1995, 12/13/1994 HPV Vaccines Aged Out No longer eligi ble based on patient's age to complete this topic Hepatitis A Vaccines Aged Out No long er eligible based on patient's age to complete this topic Meningococcal Vaccine Aged Out No tashia brianna eligible based on patient's age to complete this topic Pneumococcal Vaccine: Pediatrics (0 to 5 Years) and At-Risk Patients (6 to 49) Years) Aged Out No longer eligible based on patient's age to complete this topic RSV under 20 months Aged Out No longe r eligible based on patient's age to complete this topic Rotavirus Vaccines Aged Out No longer eligible based on patient's age to complete this topic
== END 2024-05-19 09:01 | disposition home or self-care (01) ==
LOC: HO.HMCH 08:41
PROVIDERS: PCP Internal Medicine
DX: J06.9 Acute upper respiratory infection, unspecified (principal)

== ENCOUNTER 2024-05-24 16:31 | Outpatient (AMB) | payer OTHER, SELFPAY ==
[2024-05-24 16:33] VITALS: BP 122/78; PULSE 89; O2SAT 98; BMI 27.2
--- NOTE | 2024-05-24 16:33 | MHC.PC.OV ---
Vital Signs 05/24/24 16:33 Height 4 ft 10 in Weight 130 lb BMI 27.2 BP 122/78 Blood Pressure Location Lt brachial Position Sitting Pulse 89 Pulse Source Pulse Oximeter Pulse Oximetry (%) 98 Oxygen Delivery Method Room Air Intake Visit Reasons: cold symptoms Automobile Mechanic Radiator Required: No Accompanied by: Self / Same As Patient Allergies No Known Allergies Allergy (Verified 05/24/24 16:33) Tobacco use date assessed: 05/24/24 Dental Screening Dental Screen Date: 05/24/24 Did you have a dental visit in the last 12 months?: Yes Did you have a dental problem in the last 6 months where you did not have access to dental care?: No Was dental information given to patient?: Patient has dentist HPI cold symptoms HPI Details The patient is a 33-year-old female presenting with symptoms consistent with an upper respiratory tract infection that began over a week ago. She reports significant nasal congestion, epistaxis, and nasal crusting. The symptoms are more pronounced at night, causing obstructed breathing and dryness, associated with a foul odor. She denies sore throat or ear pain, but notes occasional mild chest tightness. She self-managed with NyQuil and Afrin nasal spray, which she used three times, as advised not to exceed three days. Afrin provided temporary relief but led to worsening congestion after prolonged use. The patient has a history of allergic rhinitis and uses allergy medications regularly. The presence of pets at home is noted, which may exacerbate her allergies. On May 19, she tested negative for influenza, RSV, and COVID-19. Family history is not significant for similar conditions. Socially, she has two dogs at home. There is no family history of allergic conditions. She has been using a humidifier nightly, although without significant improvement, and reports frequent episodes of nasal bleeding upon nose blowing, which she attributes to vigorous application. [facility] Medical History Impacted cerumen of both ears Miscarriage Potential exposure to STD Difficulty sleeping Anxiety Weight gain Cervical cancer screening Globus sensation Encounter to establish care Surgical History History of hysteroscopy History of tonsillectomy Family History Father Hypothyroid Depression Mental health disorder Multiple sclerosis Mother Diabetes Hypothyroid Hypertension Maternal Aunt No problems noted. 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 1. Little interest or pleasure in doing things: not at all 2. Feeling down, depressed, or hopeless: not at all 3. Trouble falling or staying asleep, or sleeping too much: not at all 4. Feeling tired or having little energy: not at all 5. Poor appetite or overeating: not at all 6. Feeling bad about yourself - or that you are a failure or have let yourself or your family down: not at all 7. Trouble concentrating on things, such as reading the newspaper or watching television: not at all 8. Moving or speaking so slowly that other people could have noticed. Or the opposite - being so fidgety or restless that you have been moving around a lot more than usual: not at all 9. Thoughts that you would be better off or of hurting yourself in some way: not at all Total score: 0 Depression Screening Interpretation: Negative Depression Screening Done: Yes Source: Developed by Drs. Lorenzo Perez, Isabel De La Cruz, Kye Pratt and colleagues, with an educational karen from [employer]. Thrive Questionnaire Date Thrive assessed: 05/24/24 I am a: Patient What is your living situation today?: I have a steady place to live Within the past 12 months, did the food you bought not last and you didn't have the money to get more?: I choose not to answer this question Within the past 12 months, did you worry whether your food would run out before you got money to buy more?: Never true Do you have trouble paying for medicines?: No Do you have trouble getting transportation to medical appointments?: No Do you have trouble paying your heating and electricity bill?: No Do you have trouble taking care of your child, family member or friend?: No Do you have trouble with day-to-day activities such as bathing, preparing meals, shopping, managing finances, etc.?: No Are you currently unemployed and looking for a job?: No Are you interested in more education?: No Currently or been in a relationship where the following occur: I choose not to answer THRIVE Score: 0 AUDIT C Alcohol Use Questionnaire (AUDIT-C) 1. How often do you have a drink containing alcohol?: Monthly or less 2. How many drinks containing alcohol do you have on a typical day when you are drinking?: 1 or 2 3. How often do you have six or more drinks on one occasion?: Never Total Score: 1 TALHA-7 AMB Questionnaire TALHA-7 Date TALHA - 7 assessed: 05/24/24 Feeling nervous, anxious, or on edge: 0 = Not at all Not being able to stop or control worryin = Not at all Worrying too much about different things: 0 = Not at all Trouble relaxin = Not at all Being so restless that it is hard to sit still: 0 = Not at all Becoming easily annoyed or irritable: 0 = Not at all Feeling afraid as if something awful might happen: 0 = Not at all Total TALHA-7 score (0-4 normal; 5-9 mild; 10-14 moderate; 15-21 severe): 0 Source: Developed by Drs. Lorenzo Perez, Isabel De La Cruz, Kye Pratt and colleagues, with an educational karen from [employer]. Physical exam (Primary Care) Vital Signs: Last Vital Signs Pulse 89 05/24/24 16:33 BP 122/78 05/24/24 16:33 Pulse Ox 98 05/24/24 16:33 Oxygen Delivery Method Room Air 05/24/24 16:33 BMI result Body Mass Index 27.2 Tobacco/Smoking Status: Tobacco use Status Tobacco use date assessed 05/24/24 05/24/24 16:38 Patient Tobacco Use Status Never used Tobacco 05/24/24 16:38 Tobacco use type Cigarette 05/24/24 16:38 e-Cigarette/Vaping Use Never Used 05/24/24 16:38 PHQ-9: PHQ-9 Score PHQ-9: Total score 0 05/24/24 16:38 Depression Screening Interpretation: Negative Thrive Assessment: Date of Thrive Assessment Date Thrive assessed 05/24/24 05/24/24 16:38 Currently or been in a relationship where the following occur: I choose not to answer Const General: alert; No acute distress Eyes Conjunctivae: conjunctivae normal Resp Auscultation: clear to auscultation bilaterally Cardio Rate: regular rate Rhythm: regular rhythm GI Inspection: Yes normal to inspection Extrem General: Yes normal to inspection and No edema Coding Level of Care Code Est Pt Level 3 (81506) Diagnoses Sinus congestion R09.81 Allergic rhinitis J30.9 Assessment & Plan Assessment & Plan (1) Sinus congestion: Code(s): R09.81 - Nasal congestion Category: Medical (2) Allergic rhinitis: Code(s): J30.9 - Allergic rhinitis, unspecified Category: Medical Plan - Continue regular use of allergy medications to manage symptoms of allergic rhinitis. - Prescribe a nasal spray non-Afrin) to be used daily, two sprays per nostril once a day, with instructions on proper technique to prevent worsening congestion symptoms. - Emphasize the importance of avoiding extended use of Afrin nasal spray to prevent rebound congestion. - Monitor symptoms over the next few days, with the option to initiate antibiotics if symptoms do not improve within two to three days. - Encourage the use of a humidifier, ensuring proper cleaning and maintenance. - Advise on managing nasal congestion and preventing nasal tissue damage to reduce instances of epistaxis. - Reassess the need for antibiotics if symptoms persist after the current management plan. Medications: New fluticasone propionate 50 mcg/actuation (Flonase Allergy Relief) administer into each nostril 2 sprays intranasal DAILY 16 grams 0RF R09.81 - Nasal congestion amoxicillin 875 mg PO BID 14 tabs 0RF R09.81 - Nasal congestion
== END 2024-05-24 17:18 | disposition home or self-care (01) ==
PROVIDERS: PCP Internal Medicine; Visit Provider Internal Medicine
DX: R09.81 Nasal congestion (principal); J30.9 Allergic rhinitis, unspecified

== ENCOUNTER 2024-07-22 10:07 | Outpatient (AMB) | payer OTHER, SELFPAY ==
--- NOTE | 2024-07-22 10:20 | MHC.OFFVIS ---
Intake Visit Reasons: pelvic pressure Quill Machine Operator: Quill Machine Operator Present (Kassandra) Accompanied by: Self / Same As Patient Allergies No Known Allergies Allergy (Verified 07/22/24 10:23) HPI Comments Details: The patient is presenting with bilateral lower pelvic pressure started few days ago. it is not associated with constipation, no dysuria, no nausea or vomiting no other GI symptoms. The patient is complaining of vaginal discharge with foul odor, no itching PFSH Medical History Impacted cerumen of both ears Miscarriage Potential exposure to STD Difficulty sleeping Anxiety Weight gain Cervical cancer screening Globus sensation Encounter to establish care Surgical History History of hysteroscopy History of tonsillectomy Family History Father Hypothyroid Depression Mental health disorder Multiple sclerosis Mother Diabetes Hypothyroid Hypertension Maternal Aunt No problems noted. 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[employer] [place] Current occupational exposures/hazards: No Sexual orientation: Straight/Heterosexual Gender identity: Female Cognitive needs: No Hearing needs: No Vision needs: Yes Female Reproductive History Menstrual Age of Menarche: 12 Review of Systems Const All systems reviewed & are unremarkable except as noted in HPI and below Physical Exam General: Yes no CVA tenderness External Female Exam: normal external appearance and normal appearance of the urethra Speculum Exam - Vagina: normal appearance of the vagina, normal palpation, no lesions and no masses Speculum Exam - Cervix: normal appearance of the cervix, normal palpation, no lesions, no masses and nontender Bimanual exam- vagina & uterus: normal bimanual exam, normal palpation, uterine size normal, normal palpation, uterine shape normal, No Cervical tenderness present and non-tender Bimanual Exam- Adnexa, other: normal adnexae Back/Spine/Pelvis Back: no CVA tenderness Results AMB Test Urine AMB Test Urine Negative Last Edit by Dolly Nur CMA on 07/22/24 10:29 Assessment & Plan Assessment & Plan (1) Pelvic pressure in female: Code(s): R10.2 - Pelvic and perineal pain Category: Medical Plan: Urine dip and test done in the office were both negative. GC and chlamydia taken and pelvic ultrasound ordered. Discussed with the patient the differential diagnosis of pelvic pain including but not limited to adnexal, uterine masses, pelvic infections (PID), GI the (Irritable bowel syndrome, diverticulitis, others), musculoskeletal, myofascial pain abdominal wall , adhesions, endometriosis, psychological and others causes. Will check results and treat accordingly. All questions answered, the patient verbalized understanding. Instructed the patient to schedule an ultrasound and a follow-up appointment in 2 weeks. All questions answered, the patient verbalized understanding and agreed with the plan. (2) Bacterial vaginosis: Code(s): N76.0 - Acute vaginitis; B96.89 - Other specified bacterial agents as the cause of diseases classified elsewhere Category: Medical Plan: GC and chlamydia cultures with BV panel taken. Per CDC recommendation, will screen for STI, HepBs Ag, HIV, RPR, Hep C Ab ordered. Will treat with Flagyl 500 mg p.o. b.i.d. x 7 days, Instructions given to the patient to refrain from sexual activity or to use condoms consistently and correctly during the BV treatment regimen, not to douch, it might increase the risk for relapse, and to call if symptoms persist or recur. Orders: Orders US pelvic and transvaginal Today R10.2 - Pelvic and perineal pain Syphilis Screen Today B96.89 - Other specified bacterial agents as the cause of diseases classified elsewhere, N76.0 - Acute vaginitis HIV Ab/Ag Today B96.89 - Other specified bacterial agents as the cause of diseases classified elsewhere, N76.0 - Acute vaginitis Hepatitis B Surface Antigen Today B96.89 - Other specified bacterial agents as the cause of diseases classified elsewhere, N76.0 - Acute vaginitis Hepatitis C Antibody Today B96.89 - Other specified bacterial agents as the cause of diseases classified elsewhere, N76.0 - Acute vaginitis Medications: New metronidazole 500 mg PO BID 7 days 14 tabs 0RF Coding Level of Care Code Est Pt Level 3 (92605) Diagnoses Pelvic pressure in female R10.2 Bacterial vaginosis N76.0; B96.89
--- OUTSIDE RECORDS SUMMARY | 2024-07-22 11:47 | XMS_ITS | Clinical Summary ---
Author Organization [employer] Address [address] [place] [address] [address] [place] [address] Care Team Providers Care Engravings Polisher Name Role Phone Unavailable Primary Care Provider [...]
--- OUTSIDE RECORDS SUMMARY | 2024-07-22 11:47 | XMS_ITS | Encounter Summary ---
Author Organization [employer] Address [address] [place] [address] [address] [place] [address] Care Team Providers Care Cordwood Cutter Helper Name Role Phone Venita Miles Primary Care Provider [phone] Brittaney Browning NP Primary Care Provider [phone] Encounter Details Date Type Department Care Team (Latest Contact Info) Description 12/31/2018 Abstract [facility] CONVERSIONS Dental, Provider, DDS Social History [...] on filedocumented in this encounter Care Teams Cordwood Cutter Helper Relationship Specialty Start Date End Date Venita Miles FNP [address] [place] [address] PCP - General Family Medicine 01/14/22 06/11/23 Brittaney Browning NP [address] [place] [address] PCP - General Family Medicine 06/12/23 05/04/24 documented as of this encounter
== END 2024-07-22 11:25 | disposition home or self-care (01) ==
LOC: HO.HWS 10:07
PROVIDERS: PCP Internal Medicine; Visit Provider Obstetrics & Gynecology
DX: R10.2 Pelvic and perineal pain (principal); N76.0 Acute vaginitis; B96.89 Other specified bacterial agents as the cause of diseases classified elsewhere; Z32.02 Encounter for pregnancy test, result negative
CPT/HCPCS: 99213

== ENCOUNTER 2024-07-22 10:07 | Outpatient (REF) | payer OTHER, SELFPAY ==
[2024-07-22 12:06] LABS: HBsAGNum1 0.29 S/CO (0.00-0.99); HIV AB/AG Nonreactive (Nonreactive); HIV Num 1 0.08 S/CO (0.00-0.99); Hepatitis B Surface Antigen Negative (Negative); Syphilis Screen Nonreactive (Nonreactive); ~HepC Num1 0.26 S/CO (0.00-0.79); ~Hepatitis C Antibody Nonreactive (Nonreactive)
--- OUTSIDE RECORDS SUMMARY | 2024-07-22 12:30 | XMS_ITS | Encounter Summary ---
Author Organization [employer] Address [address] [place] [address] [address] [place] [address] Care Team Providers Care Environmental Studies Faculty Member Name Role Phone Venita Miles Primary Care Provider [phone] Brittaney Browning NP Primary Care Provider [phone] Encounter Details Date Type Department Care Team (Latest Contact Info) Description 12/31/2018 Abstract [facility] CONVERSIONS Dental, Provider, DDS Social History Tobacco [...] on filedocumented in this encounter Care Teams Environmental Studies Faculty Member Relationship Specialty Start Date End Date Venita Miles FNP [address] [place] [address] PCP - General Family Medicine 01/14/22 06/11/23 Brittaney Browning NP [address] [place] [address] PCP - General Family Medicine 06/12/23 05/04/24 documented as of this encounter
--- OUTSIDE RECORDS SUMMARY | 2024-07-22 12:30 | XMS_ITS | Encounter Summary ---
Author Organization [employer] [facility] Address [address] [place] [address] Care Team Providers Care Relocation Manager Name Role Phone Ning Neri DO Primary Care Pro vider Unavailable Desiree Samuel MD Primary Care Provider Azalia chi Encounter Details Date Type Department Care Team Description 09/09/2018 Orders Only Adult Medicine [address] [address] Ning Neri DO Proteinuria, unspecified type (Primary Dx) Social History Tobacco Use Types Packs/Day Years Used Date Smoking Tobacco: Never Smokeless Tobacco: Never Alcohol Use Standard Drinks/Week Comments No 0 (1 standard drink = 0.6 oz pur e alcohol) Sex Assigned at Date Recorded Not on file documented as of this encounter Plan of Treatment Scheduled Orders Name Type Priority Associated Diagnoses Orde r Schedule URINALYSIS, ROUTINE Lab Routine Proteinuria, unspecified type Expected: 09/09/2018, Expires: 09/09/2019 documented as of this encounter Visit Diagnoses Diagnosis Proteinuria, unspecified type- Primary documented in this encounter Care Teams Relocation Manager Relationship Specialty Start Date End Date Ning Neri DO PCP - General Internal Medicine 01/30/15 11/30/20 Desiree Samuel MD PCP - General Internal Medicine 12/01/20 documented as of this encounter
--- OUTSIDE RECORDS SUMMARY | 2024-07-22 12:30 | XMS_ITS | Clinical Summary ---
Author Organization [employer] Address [address] [place] [address] [address] [place] [address] Care Team Providers Care Transcription Manager Name Role Phone Unavailable Primary Care Provider [...]
[2024-07-22 12:51] LABS: Bacterial Vaginosis PCR NEGATIVE (Negative); Candida Group PCR NOT DETECTED (Not Detect); Candida glab krusei PCR NOT DETECTED (Not Detect); Trichomonas vaginalis PCR NOT DETECTED (Not Detect)
[2024-07-22 13:22] LABS: CT PCR NOT DETECTED (Not Detect.); NG PCR NOT DETECTED (Not Detect.)
== END 2024-07-22 10:08 | disposition home or self-care (01) ==
LOC: HO.LAB 10:07
PROVIDERS: PCP Internal Medicine; Visit Provider Obstetrics & Gynecology
DX: N76.0 Acute vaginitis (principal); B96.89 Other specified bacterial agents as the cause of diseases classified elsewhere; R10.2 Pelvic and perineal pain
CPT/HCPCS: 36415; 81002; 81025; 81515; 86780; 86803; 87340; 87389; 87491; 87591

== ENCOUNTER 2024-07-22 10:52 | Outpatient (REF) | payer OTHER, SELFPAY ==
--- OUTSIDE RECORDS SUMMARY | 2024-07-22 13:00 | XMS_ITS | Encounter Summary ---
Author Organization [employer] Address [address] [place] [address] [address] [place] [address] Care Team Providers Care Director Of Blood Name Role Phone Venita Miles Primary Care Provider [phone] Brittaney Browning NP Primary Care Provider [phone] Encounter Details Date Type Department Care Team (Latest Contact Info) Description 12/31/2018 Abstract [facility] CONVERSIONS Dental, Provider, DDS Social [...] on filedocumented in this encounter Care Teams Director Of Blood Relationship Specialty Start Date End Date Venita Miles FNP [address] [place] [address] PCP - General Family Medicine 01/14/22 06/11/23 Brittaney Browning NP [address] [place] [address] PCP - General Family Medicine 06/12/23 05/04/24 documented as of this encounter
--- OUTSIDE RECORDS SUMMARY | 2024-07-22 13:00 | XMS_ITS | Clinical Summary ---
Author Organization [employer] Address [address] [place] [address] [address] [place] [address] Care Team Providers Care Cold Rolling Coordinator Name Role Phone Unavailable Primary Care Provider [...]
== END 2024-07-22 10:53 | disposition home or self-care (01) ==
LOC: HO.LNP 10:52
PROVIDERS: Visit Provider Obstetrics & Gynecology
DX: Z13.89 Encounter for screening for other disorder (principal)

== ENCOUNTER 2024-08-17 13:26 | Outpatient (REF) | payer OTHER, SELFPAY ==
--- NOTE | ~2024-08-17 | US_ITS ---
EXAMINATION: US PELVIS TRANSABDOMINAL AND TRANSVAGINAL HISTORY: R10.2 - Pelvic and perineal pain COMPARISON: Comparison is made with the prior examination dated 05/28/2023. TECHNIQUE: Transabdominal and endovaginal real-time 2D ayala-scale ultrasound was performed. FINDINGS: Uterus: The uterus is normal in size, measuring 8.3 x 3.6 x 4.5 cm. Myometrium has a normal echotexture. No fibroids are identified. The previously seen 10 mm fibroid is not identified on the current examination. Endometrium: The endometrial stripe measures 15 mm in thickness. Right ovary: The right ovary measures 2.2 x 0.9 x 2.1 cm. The right ovary is normal in size and echotexture. Left ovary: The left ovary measures 2.9 x 1.8 x 2.4 cm. The left ovary is normal in size and echotexture. Pelvic fluid: none. US/US pelvic and transvaginal IMPRESSION: Unremarkable pelvic ultrasound. Electronically signed by: Lorenzo Pepper MD 08/17/2024 02:17 PM EDT
== END 2024-08-17 13:27 | disposition home or self-care (01) ==
LOC: HO.US 13:26
PROVIDERS: PCP Internal Medicine; Visit Provider Obstetrics & Gynecology
DX: R10.2 Pelvic and perineal pain (principal)
CPT/HCPCS: 76830; 76856

== ENCOUNTER → 2024-08-17 13:30 | Outpatient (BNV) | payer OTHER, SELFPAY | PROVIDERS: PCP Internal Medicine; Visit Provider Radiology Diagnostic Radiology | DX: R10.2 Pelvic and perineal pain (principal) | CPT/HCPCS: 76830; 76856 ==

== ENCOUNTER 2024-09-02 14:56 | Outpatient (AMB) | payer OTHER, SELFPAY ==
--- NOTE | 2024-09-02 15:03 | MHC.OFFVIS ---
Vital Signs 09/02/24 15:18 Height 4 ft 10 in Weight 132 lb 6 oz BMI 27.7 BP 106/62 Blood Pressure Location Lt brachial Position Sitting Intake Visit Reasons: veginal itching Utilization Reviewer Required: No Allergies No Known Allergies Allergy (Verified 09/02/24 15:20) Medication List - Last Reconciled 09/02/24 by Yancy Lopes LPN fexofenadine (Yelena Allergy) 180 mg PO DAILY fluticasone propionate 50 mcg/actuation (Flonase Allergy Relief) 2 sprays intranasal DAILY ondansetron 4 mg PO Q8H polyethylene glycol 3350 (Miralax) 17 grams PO DAILY sennosides-docusate sodium 8.6-50 mg (Senna with Docusate Sodium) 2 tab-caps (2 x 8.6-50 mg) PO BEDTIME sertraline 25 mg PO DAILY 90 days Is last menstrual period known: Yes Last menstrual period: 08/21/24 Post menopausal: No Patient : No Do you need a note to return to daycare/school/sports/work: No HPI Comments Details: Patient is here today with complaints of vaginal itching and a cut sensation. New intimate partner prior to onset of symptoms, not using condoms. She denies any pelvic pain or urinary symptoms. She reports normal cycles, LMP August 21. ON LICENSE OF [facility] Medical History Impacted cerumen of both ears Miscarriage Potential exposure to STD Difficulty sleeping Anxiety Weight gain Cervical cancer screening Globus sensation Encounter to establish care Surgical History History of hysteroscopy History of tonsillectomy Family History Father Hypothyroid Depression Mental health disorder Multiple sclerosis Mother Diabetes Hypothyroid Hypertension Maternal Aunt No problems noted. 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 Current occupational exposures/hazards: No Sexual orientation: Straight/Heterosexual Gender identity: Female Cognitive needs: No Hearing needs: No Vision needs: Yes Female Reproductive History Menstrual Age of Menarche: 12 Date of last menstrual period: 08/21/24 control method: none Total pregnancies: 1 Number of Living Children: 0 Ab spontaneous: 1 Date of last pap smear: 07/13/21 History of abnormal pap smear: No History of STI: Yes Review of Systems Const All systems reviewed & are unremarkable except as noted in HPI and below Physical Exam Vital Signs: Last Vital Signs BP 106/62 09/02/24 15:18 BMI result Body Mass Index 27.7 Const General: cooperative, healthy appearing and no acute distress Orientation/consciousness: patient oriented x3 GI Inspection: Yes normal to inspection Palpation (GI): Soft to palpation and Other GI palpation findings present (Nontender) Rectal Exam - Female: visual inspection normal Other: External inspection-shaven vulva, no lesions, cuts or fissures, mild erythema in the brianna clitoral region General: Yes bladder normal to palpation External Female Exam: normal appearance of the urethra Speculum Exam - Vagina: normal appearance of the vagina, normal palpation and normal vaginal discharge (white) Speculum Exam - Cervix: normal appearance of the cervix and normal palpation Bimanual exam- vagina & uterus: normal bimanual exam, normal palpation, uterine size normal, bladder normal to palpation, normal palpation, uterine shape normal and non-tender Bimanual Exam- Adnexa, other: normal adnexae Neuro General: patient oriented x3 Assessment & Plan Assessment & Plan (1) Vulvar itching: Code(s): L29.2 - Pruritus vulvae Plan: Instructions: Clean with warm water, no soaps, scented products. Use a cool cloth to the area several times a day if swollen and/or uncomfortable. Wear loose, cotton underclothes, avoid tight outer clothing. Air when possible. No coitus until well healed. Complete all medications as prescribed. Await final pending results for any changes in the plan of care. Call the office if there is no improvement, or if worsening symptoms. Rx sent in for topical use. The patient expressed understanding and agreement with the plan of care. All of her questions and concerns were addressed to the best of my ability. (2) Possible exposure to STD: Code(s): Z20.2 - Contact with and (suspected) exposure to infections with a predominantly sexual mode of transmission Plan BV panel and GC and chlamydia obtained await results for care.. Encouraged blood work to be done, she would like to think about it. Safe sex condoms always. Monitor menses, if late for menses do a home test. This note is constructed using voice recognition software. While every effort has been made to ensure accuracy, group program manager errors may have been included. Orders: Orders CT NG by PCR Today N76.0 - Acute vaginitis Bacterial Vaginosis Panel Today N76.0 - Acute vaginitis Medications: New clotrimazole-betamethasone 1-0.05 % 1 appl topical BID 7 days 45 grams 0RF itching Coding Level of Care Code Est Pt Level 3 (63459) Diagnoses Vulvar itching L29.2 Possible exposure to STD Z20.2
[2024-09-02 15:18] VITALS: BP 106/62; BMI 27.7
== END 2024-09-02 15:08 ==
PROVIDERS: PCP Internal Medicine; Visit Provider Advanced Practice Midwife
DX: L29.2 Pruritus vulvae (principal); Z20.2 Contact with and (suspected) exposure to infections with a predominantly sexual mode of transmission
CPT/HCPCS: 99213

== ENCOUNTER 2024-09-02 14:56 | Outpatient (REF) | payer OTHER, SELFPAY ==
[2024-09-03 04:13] LABS: CT PCR NOT DETECTED (Not Detect.); NG PCR NOT DETECTED (Not Detect.)
[2024-09-03 11:28] LABS: Bacterial Vaginosis PCR NEGATIVE (Negative); Candida Group PCR NOT DETECTED (Not Detect); Candida glab krusei PCR NOT DETECTED (Not Detect); Trichomonas vaginalis PCR NOT DETECTED (Not Detect)
== END 2024-09-02 14:57 | disposition home or self-care (01) ==
LOC: HO.LNP 14:56
PROVIDERS: Advanced Practice Midwife; PCP Internal Medicine; Visit Provider Obstetrics & Gynecology
DX: N76.0 Acute vaginitis (principal)
CPT/HCPCS: 81515; 87491; 87591

== ENCOUNTER 2024-10-08 17:35 | Emergency (ER) | payer OTHER, SELFPAY ==
--- NOTE | ~2024-10-08 | XR_ITS ---
CLINICAL HISTORY: pain --- Additional Notes or Special Instructions: constipation 1 view abdomen Comparison: None provided Findings: No pneumoperitoneum or pneumatosis. Normal stool quantity. No abnormal calcifications. No acute fractures. IMPRESSION: Normal bowel gas pattern This document has been electronically signed by: Nisha Hernandez MD on 10/08/2024 19:29:13
[2024-10-08 17:50] VITALS: BP 120/77; PULSE 85; RESP 16; TEMP 36.8; O2SAT 99; BMI 26.3
--- NOTE | 2024-10-08 17:53 | ED_ITS ---
HPI - General Adult General Chief complaint: General Medical Stated complaint: Pelvic Pain Time Seen by Provider: 10/08/24 18:29 Source: patient Limitations: no limitations History of Present Illness ED Provider: Belinda Lopez PA-C HPI narrative: 33-year-old female presents with lower abdominal pressure for 4 days. Pain over mid to left lower abdomen, discomfort described as pressure that is mild to moderate. No exacerbating factors. Denies nausea, vomiting, diarrhea, vaginal discharge or irregular vaginal bleeding. Patient does not think that she is constipated, her bowel movements are overall regular, she is not distended at this time. Patient states she did have intercourse with a new partner last weekend, she is worried for potential STD exposure. Related Data Previous Rx's ?Medication ?Instructions ?Recorded polyethylene glycol 3350 17 17 g PO DAILY #510 grams 1 05/10/22 gram/dose oral powder (Miralax) sennosides 8.6 mg-docusate sodium 2 tab-cap (2 x 8.6-5 0 mg) PO 03/16/24 50 mg tablet (Senna with Docusate BEDTIME #60 tabs Sodium) sertraline 25 mg tablet 25 mg PO DAILY 90 days #90 t abs 03/16/24 fexofenadine 180 mg tablet 180 mg PO DAILY #30 tabs (Yelena Allergy) ondansetron 4 mg disintegrating 4 mg PO Q8H #14 tabs 0 05/19/24 tablet fluticasone propionate 50 2 spray intranasal DAILY #16 grams 05/24/24 mcg/actuation nasal spray,suspension (Flonase Allergy Relief) clotrimazole-betamethasone 1 1 appl topical BID itchin g 7 days 09/02/24 %-0.05 % topical cream #45 grams Allergies Allergy/AdvReac Type Severity Reaction Status Date / Time No Known Allergies Allergy Verified 10/08/24 17:51 Review of Systems 2 Review of Systems: Yes all other systems are reviewed and are negative Constitutional: Constitutional: Denies fatigue and Denies fever(s) Cardiovascular: Cardiovascular: Denies chest pain Respiratory: Respiratory: Denies cough Gastrointestinal: Gastrointestinal: Reports abdominal pain, Denies constipation, Denies diarrhea, Denies nausea and Denies vomiting Genitourinary: Genitourinary: Denies dysuria, Denies vaginal discharge, Denies vaginal odor and Denies vaginal pruritus Endocrine: Endocrine: Denies fatigue PMFSH Past Medical History Attestation statement: The following information was validated with the patient. Medical History Impacted cerumen of both ears Miscarriage Potential exposure to STD Difficulty sleeping Anxiety Weight gain Cervical cancer screening Globus sensation Encounter to establish care Surgical History History of hysteroscopy History of tonsillectomy Family History Family History Father Hypothyroid Depression Mental health disorder Multiple sclerosis Mother Diabetes Hypothyroid Hypertension Maternal Aunt No problems noted. 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[employer] [place] Current occupational exposures/hazards: No Sexual orientation: Straight/Heterosexual Gender identity: Female Cognitive needs: No Hearing needs: No Vision needs: Yes Physical Exam ED Vital Signs: Vital Signs - 24 hr 10/08/24 17:50 10/08/24 20:19 Temperature 98.2 F 98.4 F Pulse Rate 85 83 Respiratory Rate 16 Blood Pressure 120/77 116/65 Pulse Oximetry 99 100 Oxygen Delivery Method Room Air Room Air BMI result Body Mass Index 26.3 Const Other: Alert well-appearing Orientation/consciousness: patient oriented x3 Resp Effort & Inspection: normal respiratory effort Cardio Other: Normal peripheral perfusion GI Other: Abdomen is soft, nontender no guarding no distention Other: Normal external genitalia, no CMT no adnexal tenderness, scant amount of physiologic discharge within vaginal canal, the cervix is pink there are no lesions Skin Other: Warm dry no rash Neuro General: patient oriented x3, gait normal, no focal motor deficits and CN's II- XI intact bilaterally Psych Other: Cooperative Course Course Course Narrative: 10/08/24 [id number] KARI Sequeira This is a Rapid Medical Examination (RME) performed by Ramirez Urban PA-C in triage. Full HPI, ROS, assessment and treatment plan per primary provider in the Main ED. Hx: 33 yo F here for eval of pelvic pain/ pressure x days. no urinary sx, vaginal dc, or bleeding. Plan: labs, UA, hcg Medical Decision Making Medical Decision Making MDM Narrative: 33-year-old female presents with lower abdominal pressure x 4 days. Pain over mid to left lower abdomen, discomfort described as pressure that is mild to moderate. No exacerbating factors. Denies nausea, vomiting, diarrhea, vaginal discharge or irregular vaginal bleeding. Patient does not think that she is constipated, her bowel movements are overall regular, she is not distended at this time. Patient states she did have intercourse with a new partner last weekend, she is worried for potential STD exposure. No chronic issues History: Per patient I have considered the following differential diagnoses: Cervicitis, PID, TOA, torsion, constipation, diverticulitis, UTI, SBO Plan: Screening labs including urinalysis and tests were taken from triage, everything is normal she is not no urinary tract infection. The patient is concerned for potential STD exposure, overall her pelvic exam was unremarkable, I do not have suspicion for cervicitis, PID or TOA based on my exam, she does not warrant a transvaginal ultrasound. Thought about torsion, however the patient is well in appearance, she has had symptoms for several days, her exam was not consistent with a this acute pathology. Given left lower abdominal discomfort thought about diverticulitis, however again her abdominal exam is also benign, she has no active GI symptoms. She could be constipated, we will obtain a KUB. She has no obstructive symptoms. I have independently reviewed the following tests: Labs: No electrolyte abnormality, urine not infected, not , KUB: CLINICAL HISTORY: pain --- Additional Notes or Special Instructions: constipation 1 view abdomen Comparison: None provided Findings: No pneumoperitoneum or pneumatosis. Normal stool quantity. No abnormal calcifications. No acute fractures. IMPRESSION: Normal bowel gas pattern Lab Data 10/08/24 18:06 10/08/24 18:06 Labs: Lab Results 10/08/24 10/08/24 Range/Units 18:06 18:12 WBC 9.3 (4.8-10.8) X10*3/uL RBC 4.29 (4.20-5.50) X10*6/uL Hgb 12.1 (12.0-16.0) g/dl Hct 34.7 L (37.0-47.0) % MCV 80.9 (80.0-98.0) fL MCH 28.2 (27.0-33.0) pg MCHC 34.9 (31.0-35.0) g/dl RDW 14.1 (11.0-16.0) % Plt Count 370 (160-400) X10*3/uL MPV 9.5 (9.4-12.3) fL Immature Gran % (Auto) 0.2 (0.0-0.4) % Neut % (Auto) 81.6 H (45-73) % Lymph % (Auto) 13.1 L (20-40) % Brewster % (Auto) 4.6 (2-11) % Eos % (Auto) 0.3 (0-4) % Baso % (Auto) 0.2 (0-2) % Lymph # (Auto) 1.2 (1.2-4.9) X10*3/uL Brewster # (Auto) 0.4 (0.1-1.2) X10*3/uL Eos # (Auto) 0.0 (0.0-0.4) X10*3/uL Baso # (Auto) 0.0 (0.0-0.2) X10*3/uL Abs Immat Gran (auto) 0.02 (0.00-0.03) X10*3/uL Absolute Neuts (auto) 7.5 (2.0-8.3) x10*3/uL Absolute Nucleated RBC 0.000 (0.0-0.012) X10*3/uL Nucleated RBC % (auto) 0.0 (0.0-0.2) /100WBC Sodium 138 (135-145) mmol/L Potassium 3.8 (3.3-5.1) mmol/L Chloride 107 (96-108) mmol/L Carbon Dioxide 23 (22-29) mmol/L Anion Gap 12 (12-20) BUN 9 (9-16) mg/dL Creatinine 0.74 (0.5-1.4) mg/dL Estim Creat Clear Calc 84.5 Estimated GFR > 60 Random Glucose 112 (60-115) mg/dL Calcium 9.3 (8.4-10.2) mg/dL Magnesium 2.0 (1.6-2.6) mg/dL Total Bilirubin 0.3 (0.0-1.0) mg/dL AST 24 (5-31) U/L ALT 18 (0-31) U/L Alkaline Phosphatase 82 (39-117) U/L Total Protein 8.5 H (6.5-8.0) g/dL Albumin 4.9 (3.5-5.0) g/dL Urine Color Yellow Urine Appearance Clear Urine pH 5.5 (5.0-9.0) Ur Specific Mereta <= 1.005 (1.005-1.025) Urine Protein Negative (Neg-Trace) mg/dL Urine Glucose (UA) Negative (Negative) mg/dL Urine Ketones Negative (Negative) mg/dL Urine Blood Negative (Negative) Urine Nitrite Negative (Negative) Ur Leukocyte Esterase Negative (Negative) Urine Test NEGATIVE (NEGATIVE) Discharge Plan Discharge Clinical Impression: Abdominal pain Patient Disposition: Home, Self-Care Instructions: Abdominal Pain (ED) Additional Instructions: All of your screening labs were normal, your urine is not infected, you were not . The x-ray revealed some retained stool, you were not overtly constipated. You can use [id number] Colace which is a stool softener, or [id number] MiraLax, to help facilitate regular bowel movements. You have two vaginal cultures pending, you are being screened for gonorrhea and chlamydia, if the results are positive, you will be contacted by a provider from our facility to send antibiotics to your pharmacy. Return precautions for onset of severe abdominal pain, fever, intractable vomiting or the development of new symptoms. Otherwise follow up with your primary care provider as needed. Prescriptions: No Action fexofenadine [Yelena Allergy] 180 mg tablet 180 mg PO DAILY Qty: 30 2RF ondansetron 4 mg tablet,disintegrating 4 mg PO Q8H Qty: 14 0RF polyethylene glycol 3350 [Miralax] 17 gram/dose powder 17 g PO DAILY Qty: 510 2RF sennosides-docusate sodium [Senna with Docusate Sodium] 8.6-50 mg tablet 2 tab-cap PO BEDTIME Qty: 60 4RF sertraline 25 mg tablet 25 mg PO DAILY 90 Days Qty: 90 2RF fluticasone propionate [Flonase Allergy Relief] 50 mcg/actuation spray,suspension 2 spray intranasal DAILY Qty: 16 0RF Rx Instructions: administer into each nostril clotrimazole-betamethasone 1-0.05 % cream 1 appl topical BID 7 Days Qty: 45 0RF Print Language: Chinese
[2024-10-08 18:09] LABS: MANUAL DIFF FLAG NO
[2024-10-08 18:20] LABS: Appearance Urine Clear; Color Urine Yellow; Glucose Urine UA Negative (Negative); Leukocyte Esterase Urine Negative (Negative); Nitrite Urine Negative (Negative); PH 5.5 (5.0-9.0); Specific Gravity - Urine <= 1.005 (1.005-1.025); Urine Blood Negative (Negative); Urine Ketones Negative (Negative); Urine Protein Negative (Neg-Trace)
[2024-10-08 18:21] LABS: UPreg QC Valid YES; Urine Pregnancy NEGATIVE (NEGATIVE)
[2024-10-08 18:25] LABS: Alanine Aminotransferase 18 U/L (0-31); Albumin Level 4.9 g/dL (3.5-5.0); Alkaline Phosphatase 82 U/L (39-117); Anion Gap 12 (12-20); Aspartate Amino Transferase 24 U/L (5-31); Bilirubin Total 0.3 mg/dL (0.0-1.0); Blood Urea Nitrogen 9 mg/dL (9-16); Calcium 9.3 mg/dL (8.4-10.2); Carbon Dioxide 23 mmol/L (22-29); Chloride 107 mmol/L (96-108); Creatinine Clr Calc Pharmacy 84.5; Estimated Glomerular Filt Rate > 60; Glucose Random 112 mg/dL (60-115); Potassium 3.8 mmol/L (3.3-5.1); Sodium 138 mmol/L (135-145); Total Protein 8.5 g/dL (6.5-8.0)
[2024-10-08 18:32] LABS: Basophils Percent Auto 0.2 % (0-2); Eosinophils Percent Auto 0.3 % (0-4); Hematocrit 34.7 % (37.0-47.0); Hemoglobin 12.1 g/dl (12.0-16.0); Imm Gran Abs Auto 0.02 X10*3/uL (0.00-0.03); Imm Gran Pct Auto 0.2 % (0.0-0.4); Lymphocytes Absolute Auto 1.2 X10*3/uL (1.2-4.9); Lymphocytes Percent Auto 13.1 % (20-40); Mean Corpuscular HGB Conc 34.9 g/dl (31.0-35.0); Mean Corpuscular Hemoglobin 28.2 pg (27.0-33.0); Mean Corpuscular Volume 80.9 fL (80.0-98.0); Mean Platelet Volume 9.5 fL (9.4-12.3); Monocytes Absolute Auto 0.4 X10*3/uL (0.1-1.2); Monocytes Percent Auto 4.6 % (2-11); Neutrophils Absolute Auto 7.5 x10*3/uL (2.0-8.3); Neutrophils Percent Auto 81.6 % (45-73); Platelet Count 370 X10*3/uL (160-400); Red Blood Count 4.29 X10*6/uL (4.20-5.50); Red Cell Distribution Width 14.1 % (11.0-16.0); White Blood Count 9.3 X10*3/uL (4.8-10.8)
[2024-10-08 20:19] VITALS: BP 116/65; PULSE 83; TEMP 36.9; O2SAT 100
[2024-10-08 20:58] VITALS: BP 116/65; PULSE 83; RESP 16; TEMP 36.9; O2SAT 100
[2024-10-09 03:37] LABS: CT PCR NOT DETECTED (Not Detect.); NG PCR NOT DETECTED (Not Detect.)
== END 2024-10-08 21:03 | disposition home or self-care (01) ==
PROVIDERS: Physician Assistant Medical; Emergency Provider Emergency Medicine; PCP Internal Medicine
DX: R10.32 Left lower quadrant pain (principal)
CPT/HCPCS: 36415; 74018; 80053; 81003; 81025; 83735; 85025; 87491; 87591; 99283; 99284

== ENCOUNTER → 2024-10-08 18:57 | Outpatient (BNV) | payer OTHER, SELFPAY | PROVIDERS: PCP Internal Medicine; Visit Provider Radiology Diagnostic Radiology | DX: K59.00 Constipation, unspecified (principal); R10.9 Unspecified abdominal pain | CPT/HCPCS: 74018 ==

== ENCOUNTER 2024-10-12 11:35 | Outpatient (REF) | payer OTHER, SELFPAY ==
--- OUTSIDE RECORDS SUMMARY | 2024-10-12 14:27 | XMS_ITS | Clinical Summary ---
Author Organization [facility] Address [address] [place] [address] Care Team Providers Care Early Childhood Specialist Name Role Phone Desiree Samuel MD Primary Care Provider Azalia chi Allergies No known active allergies Medications No known medications Active Problems Problem Noted Date NO ACTIVE MEDICAL PROBLEMS Immunizations Name Administration Dates Next Due DTaP 09/13/1995, 3,09/13/1991,07/14/1991,04/1990 HIB 07/13/1992,09/13/1991,07/14/1991 ,01/12/1991 Hepatitis B-3 Dose (<19yrs) 07/08/1995, 5,12/13/1994 Influenza (> 6 Months) 12/26/2011 MMR (Ieofxwo-Wodze-Aueobnb) 07/13/1993, 3 PPD-RBMG 05/16/2015 Polio (IPV) 07/13/1993,07/13/1992,07/14/1991 [...] 95 12/10/2019 9:39 AM EDT Temperature 36.9 C (98.5 F) 11/15/2019 9:31 AM EDT Respiratory Rate 16 12/10/2019 9:39 AM EDT [...] 05/19/1991 CERVICAL CANCER SCREENING 12/09/2022 12/10/2019, 04/2016 DEPRESSION SCREENING/FOLLOWUP 04/14/2024 SOCIAL NEEDS SCREENING 04/14/2024 CHOLESTEROL SCREENING 11/14/2024 11/15/2019 , 09/02/2018, 05/31/2016 BASELINE HEALTH EXAM 18-39 11/15/202411/15, 11/15/2019, 11/15/2019, Additional history exists INFLUENZA (Season Ended) 2024 017 (Refused), 12/26/2011 DTAP/TDAP/TD (8 - Td or Tdap) 11/14/2029, 02/17/2001, 09/13/1995, Additional history exists PNEUMOCOCCAL VACCINE FOR HIG H RISK PATIENTS (#1) 11/17/2055 Care Teams Early Childhood Specialist Relationship Specialty Start Date End Date Desiree Samuel MD PCP - General Internal Medicine 12/01/20
[2024-10-13 13:39] LABS: CT PCR NOT DETECTED (Not Detect.); NG PCR NOT DETECTED (Not Detect.)
[2024-10-13 14:11] LABS: Bacterial Vaginosis PCR NEGATIVE (Negative); Candida Group PCR NOT DETECTED (Not Detect); Candida glab krusei PCR NOT DETECTED (Not Detect); Trichomonas vaginalis PCR NOT DETECTED (Not Detect)
== END 2024-10-12 11:36 | disposition home or self-care (01) ==
LOC: HO.LNP 11:35
PROVIDERS: PCP Internal Medicine; Visit Provider Obstetrics & Gynecology
DX: N76.0 Acute vaginitis (principal); R10.2 Pelvic and perineal pain
CPT/HCPCS: 81515; 87491; 87591

== ENCOUNTER 2024-10-12 11:35 | Outpatient (AMB) | payer OTHER, SELFPAY ==
--- NOTE | 2024-10-12 12:11 | A.OFFVIS_ITS ---
Vital Signs 10/12/24 12:14 Height 4 ft 11 in Weight 130 lb BMI 26.3 Intake Visit Reasons: pelvic pain / frequent urination Intelligence Senior Sergeant Required: No Information Interpreted: non-clinical & clinical Private Security Guard: Private Security Guard Present Accompanied by: Self / Same As Patient Allergies No Known Allergies Allergy (Verified 10/12/24 12:15) HPI Comments Details: The patient is presenting with LLQ pain started 1-2 week ago. It's intermittent in nature lasting few seconds and occurs 3x/day. it is not associated with any constipation, dysuria, frequency, no incontinence, no n/v, no feverishness [facility] Medical History Impacted cerumen of both ears Miscarriage Potential exposure to STD Difficulty sleeping Anxiety Weight gain Cervical cancer screening Globus sensation Encounter to establish care Surgical History History of hysteroscopy History of tonsillectomy Family History Father Hypothyroid Depression Mental health disorder Multiple sclerosis Mother Diabetes Hypothyroid Hypertension Maternal Aunt No problems noted. 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[employer] [place] Current occupational exposures/hazards: No Sexual orientation: Straight/Heterosexual Gender identity: Female Cognitive needs: No Hearing needs: No Vision needs: Yes Female Reproductive History Menstrual Age of Menarche: 12 Duration of menses: 3-5 days Date of last menstrual period: 09/19/24 control method: none Review of Systems Const All systems reviewed & are unremarkable except as noted in HPI and below Physical Exam Vital Signs: BMI result Body Mass Index 26.3 General: Yes no CVA tenderness External Female Exam: normal external appearance and normal appearance of the urethra Speculum Exam - Vagina: normal appearance of the vagina, normal palpation, no lesions and no masses Speculum Exam - Cervix: normal appearance of the cervix, normal palpation, no lesions, no masses and nontender Bimanual exam- vagina & uterus: normal bimanual exam, normal palpation, uterine size normal, normal palpation, uterine shape normal, No Cervical tenderness present and non-tender Bimanual Exam- Adnexa, other: normal adnexae Back/Spine/Pelvis Back: no CVA tenderness Assessment & Plan Assessment & Plan (1) Pelvic pain: Code(s): R10.2 - Pelvic and perineal pain Category: Medical Plan: Urine dip and test done in the office were both negative. GC and chlamydia taken and pelvic ultrasound ordered. Discussed with the patient the differential diagnosis of pelvic pain including but not limited to adnexal, uterine masses, pelvic infections (PID), GI the (Irritable bowel syndrome, diverticulitis, others), musculoskeletal, myofascial pain abdominal wall , adhesions, endometriosis, psychological and others causes. Will check results and treat accordingly. All questions answered, the patient verbalized understanding. Instructed the patient to schedule an ultrasound and a follow-up appointment in 2 weeks. All questions answered, the patient verbalized understanding and agreed with the plan. Orders: Orders US pelvic and transvaginal Today R10.2 - Pelvic and perineal pain Coding Level of Care Code Est Pt Level 3 (54197) Diagnoses Pelvic pain R10.2
[2024-10-12 12:14] VITALS: BMI 26.3
--- OUTSIDE RECORDS SUMMARY | 2024-10-12 12:50 | XMS_ITS | Clinical Summary ---
Author Organization [employer] Address [address] [place] [address] [address] [place] [address] Care Team Providers Care Stone Cleaner Name Role Phone Unavailable Primary Care Provider [...] Date Last Done Comments Depression Screening 1990 Disability Screening 1990 Alcohol/Substance Use Screening 2002 Tobacco Screening 2002 Family Planning (PISQ) 2005 Pap Smear 11/17/2011 Cervical Cancer Screening 2020 HPV/Cotest 2020 COVID-19 Vaccine ( season) 2023 10/19/2020 Influenza Vaccine (Season Ended) 2024 03/05/2021, 12/26/2011 DTaP/Tdap/Td Vaccines (8 - Td or Tdap) [...] patient's age to complete this topic Meningococcal B Vaccine Aged Out No l onger eligible based on patient's age to complete this topic Meningococcal Vaccine Aged Out No tashia brianna eligible based on patient's age to complete this topic Pneumococcal Vaccine: Pediatrics (0 to 5 Years) and At-Risk Patients (6 to 49) Years Aged Out No longer eligible based on patient's age to complete this topic RSV under 20 months Aged Out No longe r eligible based on patient's age to complete this topic Rotavirus Vaccines Aged Out No longer eligible based on patient's age to complete this topic
== END 2024-10-12 12:39 | disposition home or self-care (01) ==
LOC: HO.HWS 11:36
PROVIDERS: PCP Internal Medicine; Visit Provider Obstetrics & Gynecology
DX: R10.2 Pelvic and perineal pain (principal)
CPT/HCPCS: 99213

== ENCOUNTER 2024-11-24 11:24 | Outpatient (REF) | payer OTHER, SELFPAY ==
--- NOTE | ~2024-11-24 | US_ITS ---
EXAMINATION: US PELVIS TRANSABDOMINAL AND TRANSVAGINAL HISTORY: R10.2 - Pelvic and perineal pain COMPARISON: Comparison is made with the prior examination dated 08/17/2024. TECHNIQUE: Transabdominal and endovaginal real-time 2D ayala-scale ultrasound was performed. FINDINGS: Uterus: The uterus is normal in size, measuring 8.1 x 3.5 x 4.0 cm. Myometrium has a normal echotexture. No fibroids are identified. Endometrium: The endometrial stripe measures 7 mm in thickness. Right ovary: The right ovary measures 3.2 x 1.4 x 1.7 cm. The right ovary is normal in size and echotexture. Left ovary: The left ovary measures 2.6 x 2.2 x 2.2 cm. There is a 1.9 cm hypoechoic focus in the left ovary which likely represents a corpus luteum. Pelvic fluid: none. US/US pelvic and transvaginal IMPRESSION: Unremarkable pelvic ultrasound. Electronically signed by: Lorenzo Pepper MD 11/24/2024 12:10 PM EDT
--- OUTSIDE RECORDS SUMMARY | 2024-11-24 12:21 | XMS_ITS | Clinical Summary ---
Author Organization [employer] Address [address] [place] [address] [address] [place] [address] Care Team Providers Care Fur Comber Name Role Phone Unavailable Primary Care Provider [...] Tobacco Screening 2002 Family Planning (PISQ) 2005 HPV Vaccines (1 - 3-dose series) 2005 Pap Smear 11/17/2011 Cervical Cancer Screening 2020 HPV/Cotest 2020 COVID-19 Vaccine ( season) 2023 10/19/2020 Influenza Vaccine (#1) 2024 03/05/2021, 2011 DTaP/Tdap/Td Vaccines (8 - Td or Tdap) 11/14/2029 11/15/2019, 02/17/2001, 09/13/1995, Additional history exists Zoster Vaccines (1 of 2) 2040 RSV Patients and Patients Aged 60 years or older (1 - 1-dose 75+ series) 2065 HIB Vaccines Completed 07/13/1992, 04/1991, 07/14/1991, Additional history exists IPV Vaccines Completed 07/13/1993, 04/1992, 07/14/1991, Additional history exists Hepatitis B Vaccines Completed 07/08/1995, 03/14/1995, 12/13/1994 Hepatitis A Vaccines Aged Out No long [...]
== END 2024-11-24 11:25 | disposition home or self-care (01) ==
LOC: HO.US 11:24
PROVIDERS: PCP Internal Medicine; Visit Provider Obstetrics & Gynecology
DX: R10.2 Pelvic and perineal pain (principal)
CPT/HCPCS: 76830; 76856

== ENCOUNTER → 2024-11-24 11:25 | Outpatient (BNV) | payer OTHER, SELFPAY | PROVIDERS: PCP Internal Medicine; Visit Provider Radiology Diagnostic Radiology | DX: N83.12 Corpus luteum cyst of left ovary (principal) | CPT/HCPCS: 76830; 76856 ==

== ENCOUNTER 2024-11-30 15:23 | Outpatient (AMB) | payer OTHER, SELFPAY ==
--- NOTE | 2024-11-30 15:25 | A.OFFVIS_ITS ---
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 The pelvic pain has resolved The patient is doing well. The following workup was done so far: GC/CT negative. Last visit urine test was negative. Last visit urine dip was negative. Pelvic ultrasound done recently was unremarkable Last Pap/HPV was negative in 08/03 [facility] Medical History Impacted cerumen of both ears Miscarriage Potential exposure to STD Difficulty sleeping Anxiety Weight gain Cervical cancer screening Globus sensation Encounter to establish care Surgical History History of hysteroscopy History of tonsillectomy Family History Father Hypothyroid Depression Mental health disorder Multiple sclerosis Mother Diabetes Hypothyroid Hypertension Maternal Aunt No problems noted. 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 Current occupational exposures/hazards: No Sexual orientation: Straight/Heterosexual Gender identity: Female Cognitive needs: No Hearing needs: No Vision needs: Yes Female Reproductive History Menstrual Age of Menarche: 12 control method: none Total pregnancies: 1 Ab spontaneous: 1 Date of last pap smear: 07/11/21 (negative pap smear, negative hpv) Review of Systems Const All systems reviewed & are unremarkable except as noted in HPI and below Card Reports as per HPI Resp Reports as per HPI GI Reports as per HPI and Reports no additional complaints Reports as per HPI Physical Exam Vital Signs: Last Vital Signs BP 114/72 11/30/24 15:28 BMI result Body Mass Index 28.1 Const General: cooperative, healthy appearing and comfortable Chest Chest palpation & inspection: normal inspection of the chest and normal palpation of entire chest wall Breast/axilla inspection: normal inspection of the breasts and normal inspection of the axillae Breast/axilla palpation: normal palpation of the breasts, normal palpation of the axillae and no axillary lymphadenopathy Resp Effort & Inspection: normal respiratory effort Auscultation: clear to auscultation bilaterally Percussion: percussion normal Cardio Palpation: normal PMI Rate: regular rate Rhythm: regular rhythm Heart sounds: no murmurs and no rubs Peripheral pulses: Peripheral pulses 2+ throughout GI Inspection: Yes normal to inspection Palpation (GI): Soft to palpation, nontender, no guarding, not rigid and No hepatosplenomegaly present Percussion: Yes normal to percussion Auscultation: normal bowel sounds Rectal Exam - Female: deferred General: Yes bladder normal to palpation External Female Exam: No lesion Speculum Exam - Vagina: normal appearance of the vagina, normal palpation, normal vaginal discharge and not erythematous Speculum Exam - Cervix: normal appearance of the cervix and normal palpation Bimanual exam- vagina & uterus: normal bimanual exam, normal palpation, uterine size normal, bladder normal to palpation, consistency normal and normal palpation Bimanual Exam- Adnexa, other: normal adnexae, no masses and no tenderness Assessment & Plan Assessment & Plan (1) Well woman exam: Code(s): Z01.419 - Encounter for gynecological examination (general) (routine) without abnormal findings Category: Medical Plan: Cotesting not indicated this year. Counseled the patient about the recommended dietary allowance of 1000 mg of Calcium & 600 IU of vitamin D. The patient was instructed to perform monthly self-breast exams and to schedule an annual exam in a year; All questions answered and the patient verbalized understanding. Instructed the patient to schedule annual exam in a year (2) Pelvic pressure in female: Code(s): R10.2 - Pelvic and perineal pain Category: Medical Plan: Discussed with the patient the results of the workup done including negative GC/chlamydia, urine dip, urine test and pelvic ultrasound. 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 Recommended for the patient to call back in case pelvic pain recur. All questions answered, the patient verbalized understanding. Coding Level of Care Code Est Pt Prev Care 18-39y(67417) Diagnoses Well woman exam Z01.419 Pelvic pressure in female R10.2
[2024-11-30 15:28] VITALS: BP 114/72; BMI 28.1
== END 2024-11-30 15:50 | disposition home or self-care (01) ==
LOC: HO.HWS 15:24
PROVIDERS: PCP Internal Medicine; Visit Provider Obstetrics & Gynecology
DX: Z01.419 Encounter for gynecological examination (general) (routine) without abnormal findings (principal); R10.2 Pelvic and perineal pain
CPT/HCPCS: 99395; 99459

== ENCOUNTER 2024-12-27 12:26 | Outpatient (REF) | payer OTHER, SELFPAY ==
[2024-12-27 13:36] LABS: Resp Syncy Virus RNA Qual PCR NEGATIVE (Negative); SARS COV2 PCR INHOUSE NEGATIVE (Negative)
--- OUTSIDE RECORDS SUMMARY | 2024-12-27 17:10 | XMS_ITS | Clinical Summary ---
Author Organization [employer] Address [address] [place] [address] [address] [place] [address] Care Team Providers Care Ceramic Design Engineer Name Role Phone Unavailable Primary Care Provider [...] 2020 HPV/Cotest 2020 COVID-19 Vaccine ( season) 2024 10/19/2020 Influenza Vaccine (#1) 2024 03/05/2021, 2011 [...]
--- OUTSIDE RECORDS SUMMARY | 2024-12-27 17:10 | XMS_ITS | Encounter Summary ---
Author Organization [employer] Address [address] [place] [address] [address] [place] [address] Care Team Providers Care Inspector Agricultural Commodities Name Role Phone Venita Miles Primary Care Provider [phone] Brittaney Browning NP Primary Care Provider [phone] Encounter Details Date Type Department Care Team (Latest Contact Info) Description 12/31/2018 Abstract [facility] CONVERSIONS Dental, Provider, DDS Social [...] on filedocumented in this encounter Care Teams Inspector Agricultural Commodities Relationship Specialty Start Date End Date Venita Miles FNP [address] [place] [address] PCP - General Family Medicine 01/14/22 06/11/23 Brittaney Browning NP [address] [place] [address] PCP - General Family Medicine 06/12/23 05/04/24 documented as of this encounter
== END 2024-12-27 12:27 | disposition home or self-care (01) ==
LOC: HO.LAB 12:26
PROVIDERS: PCP Internal Medicine; Visit Provider Internal Medicine
DX: R09.89 Other specified symptoms and signs involving the circulatory and respiratory systems (principal)
CPT/HCPCS: 87637

== ENCOUNTER 2024-12-28 11:10 | Outpatient (AMB) | payer OTHER, SELFPAY ==
[2024-12-28 11:03] VITALS: BP 114/72; PULSE 99; TEMP 36.2; O2SAT 94; BMI 27.4
--- NOTE | 2024-12-28 11:03 | A.OFFPC_ITS ---
Vital Signs 12/28/24 11:03 Height 4 ft 11 in Weight 135 lb 8 oz BMI 27.4 BP 114/72 Blood Pressure Location Rt brachial Position Sitting Pulse 99 Pulse Source Pulse Oximeter Temp 97.1 F Temp Source Temporal Artery Scan Pulse Oximetry (%) 94 Oxygen Delivery Method Room Air Intake Visit Reasons: cough Allergies No Known Allergies Allergy (Verified 12/28/24 11:03) Medication List - Last Reconciled 12/28/24 by Matt Flores MD fexofenadine (Yelena Allergy) 180 mg PO DAILY fluticasone propionate 50 mcg/actuation (Flonase Allergy Relief) 2 sprays intranasal DAILY sertraline 25 mg PO DAILY 90 days Tobacco use date assessed: 12/28/24 Dental Screening Dental Screen Date: 12/28/24 Did you have a dental visit in the last 12 months?: Yes Did you have a dental problem in the last 6 months where you did not have access to dental care?: No Was dental information given to patient?: Patient has dentist HPI HPI Comments History of Present Illness Details The patient is a 34-year-old female presenting with a cough and associated symptoms. The cough began on Friday and worsened by Friday, accompanied by back pain and chills. She reports difficulty sleeping due to the cough and experiences shortness of breath. The patient denies fever but experienced chills last night. COVID-19 and influenza tests were negative. She suspects possible exposure to illness from a friend with a severe cough. The patient reports abdominal pain likely due to coughing, with no joint pain noted. She feels her symptoms have not improved since yesterday, with initial worsening from Friday to Friday. [facility] Medical History Impacted cerumen of both ears Miscarriage Potential exposure to STD Difficulty sleeping Anxiety Weight gain Cervical cancer screening Globus sensation Encounter to establish care Surgical History History of hysteroscopy History of tonsillectomy Family History Father Hypothyroid Depression Mental health disorder Multiple sclerosis Mother Diabetes Hypothyroid Hypertension Maternal Aunt No problems noted. 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 Current occupational exposures/hazards: No Sexual orientation: Straight/Heterosexual Gender identity: Female Cognitive needs: No Hearing needs: No Vision needs: Yes Female Reproductive History Menstrual Age of Menarche: 12 Questionnaire PHQ-9 Over the last 2 weeks, how often have you been bothered by any of the following problems? 1. Little interest or pleasure in doing things: not at all 2. Feeling down, depressed, or hopeless: not at all 3. Trouble falling or staying asleep, or sleeping too much: not at all 4. Feeling tired or having little energy: not at all 5. Poor appetite or overeating: not at all 6. Feeling bad about yourself - or that you are a failure or have let yourself or your family down: not at all 7. Trouble concentrating on things, such as reading the newspaper or watching television: not at all 8. Moving or speaking so slowly that other people could have noticed. Or the opposite - being so fidgety or restless that you have been moving around a lot more than usual: not at all 9. Thoughts that you would be better off or of hurting yourself in some way: not at all Total score: 0 Depression Screening Interpretation: Negative Depression Screening Done: Yes Source: Developed by Drs. Lorenzo Perez, Isabel De La Cruz, Kye Pratt and colleagues, with an educational karen from [employer]. Thrive Questionnaire Date Thrive assessed: 12/28/24 I am a: Patient What is your living situation today?: I have a steady place to live Within the past 12 months, did the food you bought not last and you didn't have the money to get more?: Never true Within the past 12 months, did you worry whether your food would run out before you got money to buy more?: Never true Do you have trouble paying for medicines?: No Do you have trouble getting transportation to medical appointments?: No Do you have trouble paying your heating and electricity bill?: No Do you have trouble taking care of your child, family member or friend?: No Do you have trouble with day-to-day activities such as bathing, preparing meals, shopping, managing finances, etc.?: No Are you currently unemployed and looking for a job?: No Are you interested in more education?: Yes Please select the resources that you would like help with: None THRIVE Score: 0 AUDIT C Alcohol Use Questionnaire (AUDIT-C) 1. How often do you have a drink containing alcohol?: Never 3. How often do you have six or more drinks on one occasion?: Never Total Score: 0 TALHA-7 AMB Questionnaire TALHA-7 Date TALHA - 7 assessed: 05/24/24 Feeling nervous, anxious, or on edge: 1 = Several days Not being able to stop or control worryin = Several days Worrying too much about different things: 1 = Several days Trouble relaxin = Several days Being so restless that it is hard to sit still: 1 = Several days Becoming easily annoyed or irritable: 0 = Not at all Feeling afraid as if something awful might happen: 0 = Not at all Total TALHA-7 score (0-4 normal; 5-9 mild; 10-14 moderate; 15-21 severe): 5 Source: Developed by Drs. Lorenzo Perez, Isabel De La Cruz, Kye Pratt and colleagues, with an educational karen from [employer]. Review of Systems Const Details: Positives besides what was mentioned in HPI are in BOLD Constitutional: No Weight Change, No Fever, No Chills, No Night Sweats, No Fatigue, No Malaise ENT/Mouth: No Hearing Changes, No Ear Pain, No Nasal Congestion, No Sinus Pain, No Hoarseness, No sore throat, No Rhinorrhea, No Swallowing Difficulty Eyes: No Eye Pain, No Swelling, No Redness, No Foreign Body, No Discharge, No Vision Changes Cardiovascular: No Chest Pain, No SOB, No PND, No Dyspnea on Exertion, No Orthopnea, No Claudication, No Edema, No Palpitations Respiratory: No Cough, No Sputum, No Wheezing, No Smoke Exposure, No Dyspnea Gastrointestinal: No Nausea, No Vomiting, No Diarrhea, No Constipation, No Pain, No Heartburn, No Anorexia, No Dysphagia, No Hematochezia, No Melena, No Flatulence, No Jaundice Genitourinary: No Dysmenorrhea, No DUB, No Dyspareunia, No Dysuria, No Urinary Frequency, No Hematuria, No Urinary Incontinence, No Urgency, No Flank Pain, No Urinary Flow Changes, No Hesitancy Musculoskeletal: No Arthralgias, No Myalgias, No Joint Swelling, No Joint Stiffness, No Back Pain, No Neck Pain, No Injury History Skin: No Skin Lesions, No Pruritis, No Hair Changes, No Breast/Skin Changes, No Nipple Discharge Neuro: No Weakness, No Numbness, No Paresthesias, No Loss of Consciousness, No Syncope, No Dizziness, No Headache, No Coordination Changes, No Recent Falls Psych: No Anxiety/Panic, No Depression, No Insomnia, No Personality Changes, No Delusions, No Rumination, No SI/HI/AH/VH, No Social Issues, No Memory Changes, No Violence/Abuse Hx., No Eating Concerns Heme/Lymph: No Bruising, No Bleeding, No Transfusions History, No Lymphadenopathy Endocrine: No Polyuria, No Polydipsia, No Temperature Intolerance Physical exam (Primary Care) Vital Signs: Last Vital Signs Temp 97.1 F 12/28/24 11:03 Pulse 99 12/28/24 11:03 BP 114/72 12/28/24 11:03 Pulse Ox 94 12/28/24 11:03 Oxygen Delivery Method Room Air 12/28/24 11:03 BMI result Body Mass Index 27.4 Tobacco/Smoking Status: Tobacco use Status Tobacco use date assessed 12/28/24 12/28/24 11:06 Patient Tobacco Use Status Never used Tobacco 12/28/24 11:06 Tobacco use type Cigarette 12/28/24 11:06 e-Cigarette/Vaping Use Never Used 12/28/24 11:06 PHQ-9: PHQ-9 Score PHQ-9: Total score 0 12/28/24 11:06 Depression Screening Interpretation: Negative Thrive Assessment: Date of Thrive Assessment Date Thrive assessed 12/28/24 12/28/24 11:06 Const Other: Pertinent findings are in BOLD GENERAL APPEARANCE NAD, activity normal for age, well developed/ well nourished, no cyanosis, pallor, or diaphoresis. EYES lids/conjunctiva normal. EARS/NOSE/THROAT Mucous membranes moist, nares normal, lips/teeth normal uvula midline without oral pharyngeal erythema, exudate or swelling TMs normal bilaterally. No lymphangitis/lymphedema. HEAD/NECK normocephalic atraumatic, no facial trauma, neck is supple. RESPIRATORY respiratory effort normal, speaks in full sentences, no tripod position, no accessory muscle use. Lungs clear to auscultation without rhonchi, wheezes, rales CARDIAC Regular rate and rhythm, no edema. ABDOMINAL Soft, ND/NT. No evidence of fluid wave. No pulsatile masses on exam, rebound tenderness, Man sign or pain over Mcburney's point. MUSCLES/EXTREMITIES No abnormal range of motion, no swelling. SKIN Warm, pink and dry. No rashes, dermatoses, petechiae or lesions. NEUROLOGICAL Speech is clear and appropriate. Normal level of consciousness. Gait and coordination are normal. 5/5 strength in all extremities. PSYCH Normal mood and affect. Judgement/competence is appropriate Coding Level of Care Code Est Pt Level 3 (77206) Diagnoses Flu-like symptoms R68.89 Assessment & Plan Assessment & Plan (1) Flu-like symptoms: Code(s): R68.89 - Other general symptoms and signs Category: Medical Plan: Amoxiciline for 7 days as the patient has chills and body aches. Excuse from work letter with return to work on 12/31. Robitussin to help with cough. Tylenol OTC advised. Dayquill stopped. Plan I discussed with the patient the possibility of pneumonia and the plan to manage it with antibiotics, specifically amoxicillin, without the need for immediate imaging. We also talked about continuing allergy medications and providing a specific cough medication to replace DayQuil. The patient was advised to rest and consider taking time off work to aid recovery. Medications: New dextromethorphan HBr (Robitussin Cough) 16 mg (1.0667 x 15 mg) PO .Every 6 hours PRN 28 tabs 0RF cough 7 days amoxicillin 500 mg PO BID 14 tabs 0RF 7 days Refilled fexofenadine (Yelena Allergy) 180 mg PO DAILY 30 tabs 2RF fluticasone propionate 50 mcg/actuation (Flonase Allergy Relief) administer into each nostril 2 sprays intranasal DAILY 16 grams 0RF R09.81 - Nasal congestion sertraline 25 mg PO DAILY 90 tabs 2RF 90 days F41.1 - Generalized anxiety dis order
--- OUTSIDE RECORDS SUMMARY | 2024-12-28 15:17 | XMS_ITS | Encounter Summary ---
Author Organization [employer] Address [address] [place] [address] [address] [place] [address] Care Team Providers Care Municipal Court Judge Name Role Phone Venita Miles Primary Care Provider [phone] Brittaney Browning NP Primary Care Provider [phone] Encounter Details Date Type Department Care Team (Latest Contact Info) Description 12/31/2018 Abstract [facility] CONVERSIONS Dental, Provider, DDS Social History [...] on filedocumented in this encounter Care Teams Municipal Court Judge Relationship Specialty Start Date End Date Venita Miles FNP [address] [place] [address] PCP - General Family Medicine 01/14/22 06/11/23 Brittaney Browning NP [address] [place] [address] PCP - General Family Medicine 06/12/23 05/04/24 documented as of this encounter
--- OUTSIDE RECORDS SUMMARY | 2024-12-28 15:17 | XMS_ITS | Clinical Summary ---
Author Organization [employer] Address [address] [place] [address] [address] [place] [address] Care Team Providers Care Obiee Consultant Name Role Phone Unavailable Primary Care Provider [...]
== END 2024-12-28 11:41 | disposition home or self-care (01) ==
LOC: HO.HMCH 11:10
PROVIDERS: PCP Internal Medicine; Visit Provider Internal Medicine
DX: R68.89 Other general symptoms and signs (principal)

== ENCOUNTER 2025-03-21 10:20 | Outpatient (AMB) | payer OTHER, SELFPAY ==
[2025-03-21 10:26] VITALS: BP 118/74; PULSE 70; TEMP 36.2; O2SAT 99; BMI 27.7
--- NOTE | 2025-03-21 10:26 | A.OFFPC_ITS ---
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 Practical Required: No Accompanied by: Self / Same As Patient Allergies No Known Allergies Allergy (Verified 03/21/25 10:26) Medication List - Last Reconciled 03/21/25 by Mikki Ye MD fexofenadine ([facility]) 180 mg PO DAILY fluticasone propionate 50 mcg/actuation (Flonase Allergy Relief) 2 sprays intranasal DAILY ramelteon (Rozerem) 8 mg PO BEDTIME PRN sertraline 50 mg PO DAILY Tobacco use date assessed: 03/21/25 Dental Screening Dental Screen Date: 03/21/25 Did you have a dental visit in the last 12 months?: Yes Did you have a dental problem in the last 6 months where you did not have access to dental care?: No HPI HPI Comments History of Present Illness Details Patient is a 34-year-old female presenting for annual physical and evaluation of insomnia. She reports difficulty with both falling and staying asleep for the past eight months, waking up every hour and having bad dreams. She has tried [id number] melatonin without significant improvement. she drinks coffee in the mornings, as well as soda and tea during the day. She reports occasional alcohol use on weekends but denies smoking. She used to go to the gym 3-4 days a week but has not gone in about a month. The patient also endorses feeling anxious and overthinking a lot. A SG-7 screening indicated mild anxiety, with feelings of nervousness, worrying too much and trouble relaxing on several days, being so restless it's hard to sit still almost every day, and becoming easily annoyed more than half the days. Regarding medication history, the patient was previously on sertraline for an xiety for a couple of months but self discontinued it about six months ago due to a perceived lack of efficacy. Her last blood work was six months ago in September 2024 and all results, including CBC, electrolytes, and kidney and liver function, were normal. Her last Pap smear was in 2021 and was negative; she is due for her next one in 2026. She declined the flu shot during this visit. [facility] Medical History (Updated 03/21/25 @ 16:22 by Mikki Ye MD) Anxiety Impacted cerumen of both ears Miscarriage Potential exposure to STD Difficulty sleeping Weight gain Cervical cancer screening Globus sensation Encounter to establish care Surgical History History of hysteroscopy History of tonsillectomy Family History Father Hypothyroid Depression Mental health disorder Multiple sclerosis Mother Diabetes Hypothyroid Hypertension Maternal Aunt No problems noted. 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[employer] Current occupational exposures/hazards: No Sexual orientation: Straight/Heterosexual Gender identity: Female Cognitive needs: No Hearing needs: No Vision needs: Yes Female Reproductive History Menstrual Age of Menarche: 12 Questionnaire Thrive Questionnaire Date Thrive assessed: 12/28/24 I am a: Patient What is your living situation today?: I have a steady place to live Within the past 12 months, did the food you bought not last and you didn't have the money to get more?: Never true Within the past 12 months, did you worry whether your food would run out before you got money to buy more?: Never true Do you have trouble paying for medicines?: No Do you have trouble getting transportation to medical appointments?: No Do you have trouble paying your heating and electricity bill?: No Do you have trouble taking care of your child, family member or friend?: No Do you have trouble with day-to-day activities such as bathing, preparing meals, shopping, managing finances, etc.?: No Are you currently unemployed and looking for a job?: No Are you interested in more education?: Yes Please select the resources that you would like help with: None Currently or been in a relationship where the following occur: I choose not to answer THRIVE Score: 0 SG-7 AMB Questionnaire SG-7 Date SG - 7 assessed: 03/21/25 Feeling nervous, anxious, or on edge: 1 = Several days Not being able to stop or control worryin = Several days Worrying too much about different things: 1 = Several days Trouble relaxin = Several days Being so restless that it is hard to sit still: 3 = Nearly every day Becoming easily annoyed or irritable: 2 = More than half the days Feeling afraid as if something awful might happen: 0 = Not at all Total SG-7 score (0-4 normal; 5-9 mild; 10-14 moderate; 15-21 severe): 9 Source: Developed by Drs. Lorenzo Perez, Isabel De La Cruz, Kye Pratt and colleagues, with an educational karen from [employer]. Physical exam (Primary Care) Vital Signs: Last Vital Signs Temp 97.1 F 03/21/25 10:26 Pulse 70 03/21/25 10:26 BP 118/74 03/21/25 10:26 Pulse Ox 99 03/21/25 10:26 Oxygen Delivery Method Room Air 03/21/25 10:26 General: Well-appearing, alert, oriented ?3, in no acute distress. HEENT: Normocephalic, atraumatic, PERRLA, EOMI, no scleral icterus. External ears normal, tympanic membranes intact bilaterally, no erythema or effusion. Nares patent, normal mucosa pink, no discharge. No oral lesions, or pharyngeal erythema. Neck Supple. Cardiovascular: RRR, S1-S2 appreciated, no murmurs, rubs or gallops. Respiratory: Lungs clear to auscultation bilaterally, no wheezes, rales or rhonchi. Abdomen: Soft, nontender, nondistended. Normoactive bowel sounds. MSK: Normal range of motion in all extremities, no joint swelling or deformity. Neurologic: Alert and oriented X3, cranial nerves II?XII grossly intact, sensation and strength intact in bilateral lower and upper extremities. BMI result Body Mass Index 27.7 Tobacco/Smoking Status: Tobacco use Status Tobacco use date assessed 03/21/25 03/21/25 10:27 Patient Tobacco Use Status Never used Tobacco 03/21/25 10:27 Tobacco use type Cigarette 03/21/25 10:27 e-Cigarette/Vaping Use Never Used 03/21/25 10:27 Thrive Assessment: Date of Thrive Assessment Date Thrive assessed 12/28/24 03/21/25 10:27 Currently or been in a relationship where the following occur: I choose not to answer Coding Level of Care Code Est Pt Level 3 (11823) Est Pt Prev Care 18-39y(73971) Diagnoses Annual physical exam Z00.00 Insomnia, unspecified type G47.00 Insomnia type: unspecified Anxiety F41.9 Assessment & Plan Assessment & Plan (1) Annual physical exam: Code(s): Z00.00 - Encounter for general adult medical examination without abnormal findings Category: Medical Plan: Her last Pap smear was in 07/2021 and was negative; she is due for her next one in 2026. She declined the flu shot during this visit, stating she will do it at a later time. (2) Insomnia: Code(s): G47.00 - Insomnia, unspecified Category: Medical Qualifiers: Insomnia type: unspecified Qualified Code(s): G47.00 - Insomnia, unspecified Plan: Patient complains of insomnia with difficulty with sleep initiation and maintenance. She has tried melatonin in the past that was ineffective. Patient educated about sleep hygiene, including avoiding caffeine after 3 PM, reducing screen time before bed, using volleyball assistant coach mode on her phone, maintaining a consistent sleep schedule, and sleeping in a cool, dark environment. . Handout provided. Start Rozerem 8 mg, to take within 30 minutes of bedtime p.r.n. (3) Anxiety: Code(s): F41.9 - Anxiety disorder, unspecified Category: Medical Plan: Patient with history of anxiety, previously on sertraline 25 mg daily, that she reports she has self discontinued about 6 months ago due to perceived lack of benefit. Sg 7 score today of 9 consistent with mild anxiety. Plan is to restart sertraline, at 25 mg daily for 7 days, then increase to 50 mg daily. She states that she has the 25 mg tablets from prior prescription, that she will take for 7 days. I sent a new prescription for the 50 mg to start on 03/28/2025. Patient was counseled that it may take up to 4 weeks to start seeing effect on this medication, and that it is advised to stay on the medication for at least 3-6 months before considering tapering of, which should be done under medical supervision. Patient advised against abrupt discontinuation of medication after a few months of use. Referral to [facility] for counseling is also placed. Patient encouraged to resume her exercise routine. Orders: Referrals Counseling Referral F41.1 - Generalized anxiety disorder Medications: New sertraline 50 mg PO DAILY 30 tabs 2RF ramelteon (Rozerem) 8 mg PO BEDTIME PRN 30 tabs 1RF sleep Discontinued sertraline Discontinued Reason: Ancillary Entered New Order 25 mg PO DAILY 90 days 90 tabs 2RF F41.1 - Generalized anxiety disorder
== END 2025-03-21 11:51 | disposition home or self-care (01) ==
PROVIDERS: PCP Internal Medicine; Visit Provider Student in an Organized Health Care Education/Training Program
DX: Z00.00 Encounter for general adult medical examination without abnormal findings (principal); G47.00 Insomnia, unspecified; F41.9 Anxiety disorder, unspecified